=== PATIENT | male | born 1960 | race Caucasian/White ===

== ENCOUNTER → 2017-10-29 14:05 | Outpatient (CLI) | payer BC, SELFPAY ==
--- NOTE | 2017-10-29 14:16 | XR_ITS ---
EXAM: XR cervical spine 5V HISTORY: Generalized neck pain ITS.REASON: DISORDER OF NECK ORDERING PHYSICIAN: Grabiel Antunez MD PATIENT AGE: 57 years COMPARISON: None FINDINGS: There is straightening of the normal curvature suggesting muscle spasm. C1-C7 appear intact. There is mild disc space narrowing at the C6-7 level mild anterior ossific spurring noted. There are 2 focal ossifications in the soft tissues just posterior to the spinous processes of C5 and C6 likely within the nuchal ligament. This could be secondary to repeated minor neck trauma. There is minor neural foraminal narrowing bilaterally at the C4-5 level likely secondary to spurring of the uncinate joints. The prevertebral soft tissues are normal and the odontoid is normal. IMPRESSION: Findings suggesting some degree of muscle spasm along with mild bilateral neural foraminal narrowing at the C 4-5 level which could be a cause for some radiculopathy bilaterally.
== END ==
PROVIDERS: PCP Family Medicine; Visit Provider Family Medicine
DX: M53.82 Other specified dorsopathies, cervical region (principal)
CPT/HCPCS: 72050

== ENCOUNTER 2024-05-21 11:50 | Outpatient (CLI) | payer MEDICARE, SELFPAY ==
[2024-05-21 20:03] LABS: Alanine Aminotransferase 108 U/L (12-78); Albumin Level 5.3 g/dl (3.5-5.0); Albumin/Globulin Ratio 1.7 (1.1-1.8); Alkaline Phosphatase 166 U/L (38-126); Aspartate Amino Transferase 61 U/L (17-59); Bilirubin,Total 0.6 mg/dl (0.2-1.3); Blood Urea Nitrogen 26 mg/dl (9-20); Calcium 10.2 mg/dl (8.4-10.2); Carbon Dioxide 29 mmol/L (22.0-30.0); Chloride 98 mmol/L (98-107); Estimated Glomerular Filt Rate 67 ml/min (>60); GFR (African American) 81 ML/MIN (>60); Globulin 3.1 g/dL (1.3-3.2); Glucose 263 mg/dl (74-100); Sodium 142 mmol/L (136-145); Total Protein,Serum 8.4 g/dl (6.3-8.2)
[2024-05-21 20:31] LABS: Prostate Specific Ag Screen 2.1 ng/ml (0.0-4.0)
== END 2024-05-21 23:59 | disposition home or self-care (01) ==
LOC: LAB.DROPOF 05-22 10:35
PROVIDERS: PCP Family Medicine; Visit Provider Family Medicine
DX: Z12.5 Encounter for screening for malignant neoplasm of prostate (principal); I10 Essential (primary) hypertension
CPT/HCPCS: 80053; G0103

== ENCOUNTER 2024-06-23 13:28 | Outpatient (CLI) | payer MEDICARE, SELFPAY ==
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
[2024-06-23 21:23] LABS: Chol/HDL Ratio 3.5 (1-3.5); Cholesterol 196 mg/dl (140-200); HDL Cholesterol 56 mg/dl (40-60); Triglycerides 395 mg/dl (30-150); VLDL Cholesterol 79 mg/dL (0-40)
[2024-06-23 21:34] LABS: Direct LDL Cholesterol 94.61 mg/dL (100-129)
== END 2024-06-23 23:59 | disposition home or self-care (01) ==
LOC: RT 13:31
PROVIDERS: PCP Family Medicine; Visit Provider Family Medicine
DX: M79.89 Other specified soft tissue disorders (principal); I10 Essential (primary) hypertension
CPT/HCPCS: 80061; 93971

== ENCOUNTER 2024-07-06 11:40 | Outpatient (CLI) | payer MEDICARE, SELFPAY ==
[2024-07-06 19:04] LABS: Basophils % 0.2 % (0.1-2.0); Eosinophils % 0.1 % (0.1-12.0); Hematocrit 50.1 % (42.0-52.0); Lymphocytes # 1.4 K/mm3 (0.7-4.5); Lymphocytes % 9.9 % (10-50); Mean Corpuscular HGB Conc 33.9 g/dL (31.8-35.4); Mean Corpuscular Hemoglobin 31.9 pg (27.0-31.2); Mean Platelet Volume 10.4 fl (7.4-10.4); Monocytes # 0.6 K/mm3 (0.1-1.0); Monocytes % 4.2 % (1.7-9.3); Neutrophils # 12.2 K/mm3 (1.8-7.8); Neutrophils % 85.6 % (37.0-80.0); Platelet Count 160 K/mm3 (142-424); Red Blood Count 5.33 M/mm3 (4.60-6.20); Red Cell Distribution Width 13.2 % (11.5-17.5); White Blood Count 14.2 K/mm3 (4.8-10.8)
[2024-07-06 20:51] LABS: Chloride 88 mmol/L (98-107); Sodium 140 mmol/L (136-145)
[2024-07-06 20:54] LABS: Blood Urea Nitrogen 21 mg/dl (9-20); Estimated Glomerular Filt Rate 61 ml/min (>60); GFR (African American) 74 ML/MIN (>60); Glucose 170 mg/dl (74-100)
[2024-07-06 21:14] LABS: Anion Gap 15.3 mEq/L (5-15); Potassium 2.3 mmoL/L (3.5-5.1)
[2024-07-06 21:15] LABS: Carbon Dioxide 39 mmol/L (22.0-30.0)
== END 2024-07-06 23:59 | disposition home or self-care (01) ==
LOC: LAB.DROPOF 07-07 13:30
PROVIDERS: PCP Family Medicine; Visit Provider Family Medicine
DX: I10 Essential (primary) hypertension (principal); R19.7 Diarrhea, unspecified
CPT/HCPCS: 80048; 85025

== ENCOUNTER 2024-07-07 09:36 | Outpatient (CLI) | payer MEDICARE, SELFPAY ==
[2024-07-07 09:40] LABS: Adenovirus F 40/41, stool Not Detected (NotDetected); Astrovirus Not Detected (NotDetected); Campylobacter Not Detected (NotDetected); Clostridium Difficile A/B, PCR Not Detected (NotDetected); Cryptosporidium Not Detected (NotDetected); Cyclospora Cayetanesis Not Detected (NotDetected); Entamoeba histolytica Not Detected (NotDetected); Enteroaggregative E coli Not Detected (NotDetected); Enteropathogenic E coli Not Detected (NotDetected); Enterotoxigenic E coli Not Detected (NotDetected); Giardia lamblia Not Detected (NotDetected); Norovirus Not Detected (NotDetected); Plesimonas Shigalloides, PCR Not Detected (NotDetected); Rotavirus A Not Detected (NotDetected); Salmonella, PCR Not Detected (NotDetected); Sapovirus Not Detected (NotDetected); Shiga-like toxin E coli Not Detected (NotDetected); Shigella Enterovasive E coli Not Detected (NotDetected); Vibrio Cholerae Not Detected (NotDetected); Vibrio, PCR Not Detected (NotDetected); Yersinia Entercolitica, PCR Not Detected (NotDetected)
[2024-07-08 16:20] LABS: Fats, Neutral Normal (.); Fats, Total Normal (.)
== END 2024-07-07 23:59 | disposition home or self-care (01) ==
LOC: LAB 09:37
PROVIDERS: PCP Family Medicine; Visit Provider Family Medicine
DX: R19.7 Diarrhea, unspecified (principal); D81.89 Other combined immunodeficiencies
CPT/HCPCS: 82705; 87507

== ENCOUNTER 2024-07-09 10:30 | Outpatient (CLI) | payer MEDICARE, SELFPAY ==
[2024-07-09 18:08] LABS: Alanine Aminotransferase 290 U/L (12-78); Albumin Level 3.7 g/dl (3.5-5.0); Albumin/Globulin Ratio 1.5 (1.1-1.8); Alkaline Phosphatase 248 U/L (38-126); Aspartate Amino Transferase 148 U/L (17-59); Bilirubin,Total 1.4 mg/dl (0.2-1.3); Blood Urea Nitrogen 28 mg/dl (9-20); Chloride 89 mmol/L (98-107); Estimated Glomerular Filt Rate 55 ml/min (>60); GFR (African American) 67 ML/MIN (>60); Globulin 2.4 g/dL (1.3-3.2); Glucose 171 mg/dl (74-100); Sodium 141 mmol/L (136-145); Total Protein,Serum 6.1 g/dl (6.3-8.2)
[2024-07-09 19:22] LABS: Anion Gap 16.5 mEq/L (5-15); Carbon Dioxide 38 mmol/L (22.0-30.0); Potassium 2.5 mmoL/L (3.5-5.1)
== END 2024-07-09 23:59 | disposition home or self-care (01) ==
LOC: LAB.DROPOF 07-10 12:49
PROVIDERS: PCP Family Medicine; Visit Provider Family Medicine
DX: E11.9 Type 2 diabetes mellitus without complications (principal)
CPT/HCPCS: 80053

== ENCOUNTER 2024-07-10 08:42 | Observation (INO) | payer MEDICARE, SELFPAY ==
[2024-07-10] VITALS (8 sets, daily range): BP systolic 134–151; BP diastolic 68–97; PULSE 57–91; RESP 16–22; TEMP 36.5–36.7; O2SAT 91–99; BMI 30.8; BMI 30.7
--- NOTE | 2024-07-10 09:08 | ECG_ITS ---
APPROVED REPORT Exam: Resting ECG HR:73 bpm ECG Measurements Heart Rate 73 AXES AR 124 P 42 QRSd 104 QRS 65 QT 442 T -77 QTc 468 Conclusion SINUS RHYTHM POSSIBLE RIGHT VENTRICULAR CONDUCTION DELAY [RSR (QR) IN V1/V2] ST DEVIATION AND MODERATE T-WAVE ABNORMALITY, CONSIDER INFERIOR ISCHEMIA [-0.1+ mV T-WAVE IN II/aVF] Artifact limits interpretation, there appears to be ST depression in the inferior leads. No obvious STEMI. Electronically signed by : RAFAEL LOREDO, 07/11/2024 03:30:30
[2024-07-10 09:16] LABS: VBG Base Excess 14.8 mmol/L (-2.4-2.3); VBG Oxygen Saturation 62.8 % (50-70); VBG PCO2 49.8 mmol/L (35-51); VBG PO2 29.5 mmol/L (28-40); VBG Total CO2 39.5 mmol/L (23-27)
--- NOTE | 2024-07-10 09:16 | PC.NURSE ---
DR AUGUST AT BEDSIDE
--- NOTE | 2024-07-10 09:19 | ED_ITS ---
Discharge Plan Disposition Patient Disposition: Admitted Clinical Impressions Clinical Impression: Transaminitis, Hypokalemia, Diarrhea, Pancreatitis, Unintentional weight loss, Hypophosphatemia, Acidosis, lactic, Lung mass, Metastasis to liver, Mass of kidney Discharge ED Provider: Gale Padilla General Adult HPI General Chief complaint: Nausea/Vomiting/Diarrhea Stated complaint: Dehydration weight loss Time Seen by Provider: 07/10/24 08:47 Mode of Arrival: Ambulatory Description of Symptoms (Recalled from ER Triage Doc. by RN): PT PRESENTS TO THE ED WITH C/O WEIGHT LOSS AND DEHYDRATION THAT BEGAN ABOUT A MONTH AGO AFTER BEING DIAGNOSED WITH DIABETES AND HIS PCP STARTING HIM ON NEW MEDICATIONS. PT HAS HAD DIARRHA OVER THE PAST MONTH AND STATES EVERYTHING I EAT JUST GOES RIGHT THROUGH ME. PT REPORTS THAT HE HAS LOST 35LBS IN THE LAST MONTH. History of Present Illness HPI narrative: This patient is a 64-year-old male who has a history of hypertension, diabetes, and tobacco dependence presenting to the emergency department for evaluation with concern for dehydration, weight loss, abnormal labs. According to the patient, he saw a primary care doctor and was diagnosed with high blood pressure and diabetes. He was started on medications, but he was intolerant of these medications with diarrhea and leg swelling. He was started on metformin initially as well as amlodipine, he was changed to glipizide but he also did not tolerate this. He still persistently had profuse diarrhea and is lost 35 pounds in the last 6 weeks. He states that anything he eats go straight through him. He denies any fevers, chills, chest pain, shortness of breath, cough, congestion, abdominal pain, nausea, vomiting. He is still having watery diarrhea, though it is improved after starting supplements prescribed by GI. I had an interactive discussion with his primary care provider who is concerned about severe hypokalemia, transaminitis, dehydration, PHYLLIS and is worried the patient may need to be admitted. Patient states that aside from feeling tired, weak, having dry mouth, and having the diarrhea, he otherwise is feeling okay without other acute concerns or complaints. Related Data Home Medications ?Medication ?Instructions ?Recorded ?Confirmed calcium polycarbophil 625 mg tablet 1,250 mg PO DAILY 07/10/24 07/10/24 lisinopril 10 1 tab PO DAILY 04/04/25 04/04/25 mg-hydrochlorothiazide 12.5 mg tablet potassium chloride 20 mEq 20 meq PO DAILY 07/10/24 07/10/24 tablet,extended release Previous Rx's ?Medication ?Instructions ?Recorded blood-glucose meter,continuous #1 ea 06/23/24 (Dexcom G7 Assistant Infant Toddler Teacher) blood-glucose sensor (Dexcom G7 #3 ea 06/23/24 Sensor device) blood sugar diagnostic (Accu-Chek #100 ea 06/30/24 Guide test strips) blood-glucose meter (Accu-Chek #1 ea 06/30/24 Guide Glucose Meter) lancets (Accu-Chek Softclix #100 ea 06/30/24 Lancets) Allergies Allergy/AdvReac Type Severity Reaction Status Date / Time No Known Allergies Allergy Verified 07/09/24 13:21 [facility] Disclaimer: The information contained in this section may have been updated after the patient was seen, as this information can be updated by other users. Medical History Hilar lymphadenopathy Smoking greater than 30 pack years Lung nodule Hypokalemia Diarrhea Pedal edema Cigarette smoker Hypertension Onychomycosis Diabetes mellitus (~07/06/24) Family History Other Colon cancer Lung cancer Social History Smoking Status: Current every day smoker alcohol intake: never current occupational status: employed and retired Travel in the last 8 weeks: None Other Medical History Have you received the Pneumonia Vaccine: Yes ROS Obtained: Yes All systems reviewed & no additional complaints except as documented Physical Exam General General appearance: alert and in no apparent distress Head Head exam: atraumatic and normocephalic Eye Eye exam: Present normal appearance, PERRL and EOMI ENT ENT exam: Present mucous membranes dry and normal external ear exam Neck Neck exam: Present normal inspection, full ROM and trachea midline; Absent tenderness Chest Chest inspection: Present normal inspection and symmetric chest wall rise; Absent tenderness Respiratory Respiratory exam: Present normal lung sounds bilaterally; Absent respiratory distress, wheezes, stridor or accessory muscle use Cardiovascular Cardiovascular exam: Present regular rate and normal rhythm Abdominal Exam Abdominal exam: Present soft; Absent distention, tenderness or guarding Extremities Exam Extremities exam: Present full ROM, normal capillary refill and edema (Symmetric bilateral lower extremity edema); Absent tenderness Back Exam Back exam: Present normal inspection and full ROM; Absent tenderness Neurological Exam Neurological exam: Present alert, oriented X3, CN II-XII intact and normal gait; Absent motor sensory deficit Psychiatric Psychiatric exam: Present normal affect and normal mood Skin Skin exam: Present warm and dry Medical Decision Making Medical Records Medical records reviewed: Yes I reviewed the patient's medical records. Screening: Per USPSTF and CDC recommendations, given the prevalence of disease in our region, it is our hospital?s policy to screen for HIV and viral Hepatitis for all patients aged 18 and over and those with ongoing risk factors. Kishore Inquiry Pt receiving controlled substance: No Vital Signs: 07/10/24 08:57 07/10/24 10:30 07/10/24 11:30 Temperature 98.1 F Temperature Source Oral Pulse Rate 57 L 66 Pulse Rate [Right] 91 H Respiratory Rate 19 18 22 Blood Pressure 151/97 H 145/85 H Blood Pressure [Right Arm] 134/86 Blood Pressure Mean [Right Arm] 102 Blood Pressure Source Blood Pressure Source [Right Arm] Automatic Cuff Blood Pressure Position Blood Pressure Position [Right Arm] Supine 02 Sat by Pulse Oximetry 97 93 L 94 L Oxygen Delivery Method Room Air Room Air Room Air 07/10/24 12:05 07/10/24 12:50 07/10/24 12:53 Temperature 98.1 F 98.0 F Temperature Source Oral Oral Pulse Rate 78 Pulse Rate [Right] 66 Respiratory Rate 20 16 Blood Pressure 145/85 H Blood Pressure [Right Arm] 148/71 H Blood Pressure Mean [Right Arm] 96 Blood Pressure Source Automatic Cuff Blood Pressure Source [Right Arm] Automatic Cuff Blood Pressure Position Sitting Blood Pressure Position [Right Arm] Sitting 02 Sat by Pulse Oximetry 97 Oxygen Delivery Method Room Air Room Air Room Air Lab Data Lab results reviewed: Yes I reviewed the patient's lab results. Lab Results 07/10/24 08:49: VBG pH 7.50 H, VBG pCO2 49.8, VBG pO2 29.5, VBG HCO3 38.0 H, VBG Total CO2 39.5 H, VBG O2 Saturation 62.8, VBG Base Excess 14.8 H, VBG Lactic Acid 4.8 H 07/10/24 09:05: WBC 15.6 H, RBC 5.11, Hgb 16.2, Hct 46.1, MCV 90.2, MCH 31.7 H, MCHC 35.1, RDW 12.9, Plt Count 154, MPV 9.9, Neut % (Auto) 86.7 H, Lymph % (Auto) 7.9 L, [place] % (Auto) 3.9, Eos % (Auto) 0.0 L, Baso % (Auto) 0.1, Neut # (Auto) 13.5 H, Lymph # (Auto) 1.2, [place] # (Auto) 0.6, Eos # (Auto) 0.0, Baso # (Auto) 0.0, Total Counted 100, Neutrophils % (Manual) 88 H, Lymphocytes % (Manual) 5 L, Monocytes % (Manual) 7, Platelet Estimate Normal, RBC Morphology Normal, PT 11.0, INR 0.98, APTT 20.7 L, Sodium 139, Potassium 2.6 L*, Chloride 90 L, Carbon Dioxide 44 H*, Anion Gap 7.6, BUN 25 H, Creatinine 1.10, Estimated Creat Clear 103, Estimated GFR 67, Est GFR ( Amer) 81 D, Glucose 194 H, Hemoglobin A1c 8.4 H, Calcium 9.1, Phosphorus 1.8 L, Magnesium 2.4 H, Total Bilirubin 1.5 H, AST 183 H, ALT 298 H, Alkaline Phosphatase 242 H, NT-Pro-B Natriuret Pep 474 H, Total Protein 6.3, Albumin 3.7, Globulin 2.6, Albumin/Globulin Ratio 1.4, Lipase 704 H, TSH 0.57, Thyroxine (T4) 9.3 07/10/24 11:12: Urine Color Yellow, Urine Appearance Sl cloudy, Urine pH 7.0, Ur Specific [place] 1.010, Urine Protein Trace, Urine Glucose (UA) 1+, Urine Ketones Negative, Urine Blood 2+ A, Urine Nitrate Negative, Urine Bilirubin Negative, Urine Urobilinogen 0.2, Ur Leukocyte Esterase Negative, Urine RBC Occasional, Urine WBC Occasional, Ur Squamous Epith Cells Occasional, Urine Bacteria Trace 07/10/24 09:05 07/10/24 17:20 Orders (Tests/Meds): ED MEDICATIONS Generic Name Dose Route Start Last Admin Trade Name Freq PRN Reason Stop Dose Admin Albuterol/Ipratropium 3 ml 07/10/24 14:25 Ipratropium/Albuterol 3 Ml Neb IH 08/09/24 14:24 Q6HP PRN Shortness Of Breath Calcium Polycarbophil 1,250 mg 07/11/24 09:00 Calcium Polycarbophil 625mg Tab PO 08/10/24 08:59 DAILY JOSEPH Ceftriaxone Sodium 1 gm/ 50 mls @ 100 mls/hr 07/10/24 16:30 07/10/24 17:14 Sodium Chloride IV 07/20/24 16:29 100 mls/hr Q24H JOSEPH Administration Insulin Human Lispro 0 unit 07/10/24 16:30 07/10/24 17:21 Humalog 100 Units/Ml 10ml Vial (Ssi) SUBCUT 08/09/24 16:29 Not Given ACHS JOSEPH Protocol Lisinopril 20 mg 07/11/24 09:00 Lisinopril 20mg Tablet PO 08/10/24 08:59 DAILY JOSEPH Nicotine 21 mg 07/10/24 16:28 Nicotine 21mg/24hr Patch TD 08/09/24 16:27 DAILYP PRN Nicotine Cravings Potassium Chloride 40 meq 07/10/24 21:00 Potassium Chloride 20meq Tab PO 08/09/24 20:59 BID JOSEPH Potassium Phosphate 250 mg 07/10/24 17:00 07/10/24 17:13 K-Phos Neutral 250mg Tablet PO 07/10/24 23:01 250 mg Q6 JOSEPH Administration Sodium Chloride 10 ml 07/10/24 16:36 Sodium Chloride 0.9% 10ml Flush Syringe IV 08/09/24 16:35 NEEDED PRN Maintain IV Site Discontinued Medications Generic Name Dose Route Start Last Admin Trade Name Freq PRN Reason Stop Dose Admin Lactated Ringer's 1,000 mls @ 999 mls/hr 07/10/24 09:37 07/10/24 10:13 Lactated Ringer's 1000 Ml Bag IV 07/10/24 10:37 999 mls/hr .Q1H1M ONE Administration Potassium Chloride/Water 100 mls @ 50 mls/hr 07/10/24 09:39 07/10/24 13:44 Potassium Chloride 20meq/100ml Ivpb IV 07/10/24 13:38 50 mls/hr Q2H JOSEPH Administration Lactated Ringer's 1,000 mls @ 999 mls/hr 07/10/24 10:41 07/10/24 13:44 Lactated Ringer's 1000 Ml Bag IV 07/10/24 11:41 999 mls/hr .Q1H1M ONE Administration Iopamidol 75 ml 07/10/24 09:48 07/10/24 09:48 Iopamidol-370 (76%);100ml Bottle IV 07/10/24 09:49 75 ml ONCE ONE Administration Iopamidol 120 ml 07/10/24 10:54 07/10/24 10:58 Iopamidol-370 (76%);100ml Bottle IV 07/10/24 10:55 120 ml ONCE ONE Administration Potassium Phosphate 500 mg 07/10/24 09:38 07/10/24 10:12 K-Phos Neutral 250mg Tablet PO 07/10/24 09:39 500 mg ONCE ONE Administration Sodium Chloride 10 ml 07/10/24 09:48 07/10/24 09:48 Sodium Chloride 0.9% 10ml Syr (Rad Only) IV 07/10/24 09:49 10 ml ONCE ONE Administration Sodium Chloride 10 ml 07/10/24 10:54 07/10/24 10:58 Sodium Chloride 0.9% 10ml Syr (Rad Only) IV 07/10/24 10:55 10 ml ONCE ONE Administration Sodium Chloride 50 ml 07/10/24 10:54 07/10/24 10:58 0.9 % Sodium Chloride 50 Ml Vial IV 07/10/24 10:55 50 ml ONCE ONE Administration ORDERS Category Date Time Status CT abdomen pelvis w con Stat Cat Scan 07/10/24 09:[address] angio chest PE protocol Stat Cat Scan 07/10/24 10:[address] head/brain wo/w con Stat Cat Scan 07/10/24 10:41 Completed US RUQ [US abdomen limited] Stat Exams 07/10/24 09:40 Completed AFP, Tumor Marker Routine Lab 07/10/24 09:05 Received BNP [NT Pro Brain Natriuretic Pep.] Stat Lab 07/10/24 09:05 Completed Basic Metabolic Panel Routine Lab 07/10/24 17:20 Completed CA 19-9 Routine Lab 07/10/24 09:05 Received CEA Routine Lab 07/10/24 09:05 Received Complete Blood Count Auto Diff AMLAB Lab 07/11/24 06:00 Ordered Complete Blood Count Auto Diff Stat Lab 07/10/24 09:05 Completed Comprehensive Metabolic Panel AMLAB Lab 07/11/24 06:00 Ordered Comprehensive Metabolic Panel Stat Lab 07/10/24 09:05 Completed Hemoglobin A1C Stat Lab 07/10/24 09:05 Completed Hepatitis Panel Stat Lab 07/10/24 09:05 Received Lipase Stat Lab 07/10/24 09:05 Completed MAG [Magnesium] Stat Lab 07/10/24 09:05 Completed Magnesium AMLAB Lab 07/11/24 06:00 Ordered Magnesium Routine Lab 07/10/24 17:20 Completed PHOS [Phosphorous] Stat Lab 07/10/24 09:05 Completed PT INR [Prothrombin Time INR] Stat Lab 07/10/24 09:05 Completed PTT [Activated Partial Thrombo Time] Stat Lab 07/10/24 09:05 Completed T4 (Thyroxine) Stat Lab 07/10/24 09:05 Completed TSH [Thyroid Stimulating Hormone] Stat Lab 07/10/24 09:05 Completed UA [Urinalysis and Microscopic] Stat Lab 07/10/24 11:12 Completed VBG [Venous Blood Gas] Stat RT 07/10/24 08:49 Completed ECG Data Tracing #1: I reviewed this ECG and interpreted as documented below: Normal sinus rhythm with a ventricular rate of 73 bpm. Right ventricular conduction delay. Nonspecific ST/T wave changes with motion artifact that obscures baseline. No acute STEMI. ECG initial impression date: 07/10/24 ECG initial impression time: 09:10 Medical Decision Narrative: In summary, this patient is a 64-year-old male presenting to the Emergency Department for evaluation of dehydration, abnormal labs, diarrhea, unintentional weight loss. Differential diagnoses considered include but are not limited to hypokalemia, PHYLLIS, dehydration, colitis, diverticulitis, autoimmune hepatitis, gastritis. Ruling out the most morbid conditions drove assessment. It should be noted patient's history includes tobacco dependence, hypertension, and diabetes which are not at goal therapy. This complicates all aspects of care by increasing patient's risk for morbidity. I reviewed patient's past medical records and noted previous PCP evaluations over the last several weeks as well as GI evaluation for this profuse diarrhea, unintentional weight loss, abnormal labs. And noted prior negative diarrhea panel. Prior labs showing hypokalemia and transaminitis. He has outpatient colonoscopy planned, as he has not had history of colonoscopy and does have a family history of colon cancer. On exam, the patient is lying in bed in no acute distress. He has dry mucous membranes and symmetric bilateral lower extremity edema, but otherwise exam is reassuring. Abdominal exam is benign with no localizable tenderness. Workup included evaluation to evaluate for infectious, metabolic issues including hepatitis panel, CBC, CMP, magnesium, phosphorus, VBG, lactic, BNP, TSH, T4. I also obtained EKG, RUQ US, CT abdomen pelvis with IV contrast. EKG is some nonspecific changes without acute STEMI. Likely related to significant electrolyte derangements. I independently interpreted CT prior to the radiologist read and noted concerns for liver metasteses. Please see their read for final interpretation. Given this, I elected to obtain CTA chest, CT head with to evaluate for potential primary lesion. Labs were obtained that demonstrated mild leukocytosis which is nonspecific, significant hypokalemia requiring IV electrolyte repletion, significant hypophosphatemia requiring oral repletion. He was given 2 L of IV fluids here in the ED. I independently interpreted CTA of the chest and had prior radiology read and noted concerns for lung mass, likely lung primary with metastasis to the liver. Ultimately, given the patient's profound electrolyte derangements, continued diarrhea, and unintentional weight loss, I feel that he would benefit from admission for further evaluation and management. I updated patient with regards to imaging findings that are highly concerning for metastatic disease and he was admitted in stable condition after I had an interactive discussion with the hospitalist. Critical Care Critical Care Time Critical Care Time: Yes Attestation: On 07/10/24, the high probability of a clinically significant, sudden or life threatening deterioration of the following system(s) required my full and direct attention, intervention and personal management. The time I documented below is in addition to time spent performing reported procedures but includes the following listed in this critical care notation. Total Time Total Critical Care Time: 30
--- NOTE | 2024-07-10 09:19 | CT_ITS ---
FINAL REPORT TECHNIQUE: Oral and IV contrast enhanced exam. Coronal and sagittal images were obtained and reviewed. This study was performed with techniques to keep radiation doses as low as reasonably achievable, (ALARA). Individualized dose reduction techniques using automated exposure control or adjustment of mA and/or kV according to the patient''s size were employed. CLINICAL HISTORY: diarrhea several wks, wt loss, transaminitis elevated LFTs, bili, lipase COMPARISON: none FINDINGS: Abdomen: The liver is extremely heterogeneous. There are multiple masses breast several suspected isodense with the adjacent liver. A few hypodense masses are seen. Sampled and measured hypodense lesion in the inferior liver on image 50 of series 3 measures 20 mm. An isodense mass within the anterior left liver on image 29 of series 3 measures up to 32 mm. Remaining solid organs are normal. The gallbladder is contracted. There is no evidence of biliary ductal dilatation. There is no obvious bowel wall thickening. There is no free air. No fluid collection is seen. There is no adenopathy. Pelvis: The appendix is not seen. Pelvic bowel loops are unremarkable. There is mild prostate enlargement. There is no free fluid. No pelvic mass is seen. No adenopathy. IMPRESSION: Heterogeneous appearance of the liver with multiple lesions suspicious for metastatic disease. Recommend further evaluation of the liver with MRI without and with contrast. No obvious primary tumor identified. Reviewed, Interpreted and Dictated by Sunitha Villarreal MD Transcribed by Jenny Thompson Authenticated and [facility]
[2024-07-10 09:21] LABS: Lactate Venous 4.8 mmol/L (0.4-2.0)
--- NOTE | 2024-07-10 09:22 | PC.NURSE ---
Dr. Padilla notified of Lactic 4.8.
[2024-07-10 09:25] LABS: Basophils % 0.1 % (0.1-2.0); Chloride 90 mmol/L (98-107); Hematocrit 46.1 % (42.0-52.0); Hemoglobin 16.2 g/dL (14.1-18.0); Lymphocytes # 1.2 K/mm3 (0.7-4.5); Lymphocytes % 7.9 % (10-50); Mean Corpuscular HGB Conc 35.1 g/dL (31.8-35.4); Mean Corpuscular Hemoglobin 31.7 pg (27.0-31.2); Mean Corpuscular Volume 90.2 fl (80-94); Mean Platelet Volume 9.9 fl (7.4-10.4); Monocytes # 0.6 K/mm3 (0.1-1.0); Monocytes % 3.9 % (1.7-9.3); Neutrophils # 13.5 K/mm3 (1.8-7.8); Neutrophils % 86.7 % (37.0-80.0); Platelet Count 154 K/mm3 (142-424); Red Blood Count 5.11 M/mm3 (4.60-6.20); Red Cell Distribution Width 12.9 % (11.5-17.5); White Blood Count 15.6 K/mm3 (4.8-10.8)
[2024-07-10 09:26] LABS: Albumin Level 3.7 g/dl (3.5-5.0); Sodium 139 mmol/L (136-145)
[2024-07-10 09:28] LABS: Blood Urea Nitrogen 25 mg/dl (9-20); Creatinine Clearance Estimated 103 mL/min (50-200); Estimated Glomerular Filt Rate 67 ml/min (>60); GFR (African American) 81 ML/MIN (>60)
[2024-07-10 09:29] LABS: Alanine Aminotransferase 298 U/L (12-78); Albumin/Globulin Ratio 1.4 (1.1-1.8); Alkaline Phosphatase 242 U/L (38-126); Aspartate Amino Transferase 183 U/L (17-59); Bilirubin,Total 1.5 mg/dl (0.2-1.3); Calcium 9.1 mg/dl (8.4-10.2); Globulin 2.6 g/dL (1.3-3.2); Glucose 194 mg/dl (74-100); Magnesium 2.4 mg/dl (1.6-2.3); Total Protein,Serum 6.3 g/dl (6.3-8.2)
--- NOTE | 2024-07-10 09:35 | PC.NURSE ---
CRITICAL LABS K+ 2.6 PHOSPHATE 1.8 LIPASE 704 PT NAME AND R/V. DR AUGUST NOTIFIED
[2024-07-10 09:36] LABS: Lipase 704 U/L (23-300); Phosphorous 1.8 mg/dl (2.5-4.5); Potassium 2.6 mmoL/L (3.5-5.1)
[2024-07-10 09:37] LABS: Anion Gap 7.6 mEq/L (5-15); Carbon Dioxide 44 mmol/L (22.0-30.0)
[2024-07-10 09:40] LABS: MANUAL DIFFERENTIAL MANUAL DIFFERENTIAL (MANUAL DIFF)
--- NOTE | 2024-07-10 09:40 | US_ITS ---
FINAL REPORT TECHNIQUE: Multiple transverse and longitudinal images CLINICAL HISTORY: elevated LFTs, bili, lipase FINDINGS: There is cholelithiasis. No biliary ductal dilatation is appreciated. There is no evidence of ascites. There are innumerable liver masses compatible with metastatic disease. There is probably some component of fatty liver. Liver masses measure up to 2.8 cm. Right renal lesion is identified measuring up to 2.[address] is isodense and inconspicuous compared to surrounding parenchyma. IMPRESSION: Liver masses compatible with widespread liver metastatic disease. Cholelithiasis. Indeterminate right renal mass. If further evaluation is desired, CT or MRI with and without contrast using renal mass protocol may be considered. Reviewed, Interpreted and Dictated by Sunitha Villarreal MD Transcribed by Rashida Almonte Authenticated and [facility]
[2024-07-10 09:48] LABS: Activated Partial Thrombo Time 20.7 seconds (22.8-30.6); INR 0.98 (0.9-1.1)
[2024-07-10] MEDS: IOPAMIDOL-370 (76%);100ML BOTTLE 75 ML IV (09:48)
[2024-07-10] MEDS: SODIUM CHLORIDE 0.9% 10ML SYR (RAD ONLY) 10 ML IV ×2 (09:48→10:58)
[2024-07-10 10:00] LABS: NT Pro Brain Natriuretic Pep. 474 pg/mL (0-125)
[2024-07-10 10:09] LABS: T4 (Thyroxine) 9.3 ug/dl (5.53-11.0)
[2024-07-10] MEDS: K-PHOS NEUTRAL 250MG TABLET 500 MG PO (10:12)
[2024-07-10 10:13] LABS: Hemoglobin A1C 8.4 % (4.0-6.0)
[2024-07-10] MEDS: KCl 20mEq/100ml 100 ML 50 MEQ IV ×2 (10:13→13:44)
[2024-07-10] MEDS: LACTATED RINGERS 1000ML 1,000 ML 999 ML IV ×2 (10:13→13:44)
[2024-07-10 10:22] LABS: Thyroid Stimulating Hormone 0.57 uIU/mL (0.465-4.68)
[2024-07-10 10:35] LABS: Lymphocytes % 5 % (10-50); Monocytes % 7 % (2-9); Neutrophils % 88 % (42-76); Platelet Estimate Normal; RBC Morphology Normal; Total Cells Counted 100
--- NOTE | 2024-07-10 10:41 | CT_ITS ---
FINAL REPORT TECHNIQUE: Multiple axial CT sections were performed from the foramen magnum to the vertex. Coronal reformatted images were also obtained. Precontrast and postcontrast injection images were obtained. This study was performed with technique to keep radiation doses as low as reasonably achievable, (ALARA). Individualized dose reduction techniques using automated exposure control or adjustment of mA and/or kV according to the patient size were employed. CLINICAL HISTORY: malignancy workup, wt loss, poss liver mets on CT FINDINGS: Precontrast images show enhancement from contrast-enhanced CT chest, abdomen and pelvis from earlier today. There is no obvious hemorrhage. There is no edema. There is a 14 mm hypodensity in the right basal ganglia. This is favored to reprimanded dilated prevascular space over chronic lacunar infarct. No mass or abnormal contrast-enhancement is seen. IMPRESSION: No evidence of metastatic brain disease. Reviewed, Interpreted and Dictated by Sunitha Villarreal MD Transcribed by Ivonne Pastrana Authenticated and [facility]
--- NOTE | 2024-07-10 10:41 | CT_ITS ---
FINAL REPORT TECHNIQUE: Thin section axial CT with contrast with multiplanar reconstruction. This study was performed with techniques to keep radiation doses as low as reasonably achievable, (ALARA). Individualized dose reduction techniques using automated exposure control or adjustment of mA and/or kV according to the patient''s size were employed. CLINICAL HISTORY: malignancy workup, wt loss, poss liver mets on CT FINDINGS: Pulmonary vessels enhance in normal fashion without evidence of embolism. Thoracic aorta shows no dissection or aneurysm. There is a spiculated, cavitary mass in the right upper lobe suspicious for primary lung neoplasm and presumably the source of liver metastasis, seen on CT abdomen and pelvis. This lesion measures 31 x 26 mm. Remaining lungs are clear. There is no significant pleural effusion. There is no significant pericardial effusion. There is mild left hilar adenopathy measuring 30 x 21 mm. No mediastinal adenopathy is seen. IMPRESSION: Mild cavitary 31 mm right upper lobe mass is suspicious for primary lung neoplasm. Nonspecific mild left hilar adenopathy. No pulmonary embolism. Reviewed, Interpreted and Dictated by Sunitha Villarreal MD Transcribed by Ivonne Pastrana Authenticated and . [facility]
--- NOTE | 2024-07-10 10:44 | PC.NURSE ---
at updating pt and family on plan of care
[2024-07-10] MEDS: 0.9 % SODIUM CHLORIDE 50 ML VIAL IV (10:58)
[2024-07-10] MEDS: IOPAMIDOL-370 (76%);100ML BOTTLE 120 ML IV (10:58)
[2024-07-10 11:16] LABS: Microscopic, Urine URINE MICROSCOPIC (MICROSCOPIC)
[2024-07-10 11:17] LABS: Appearance,Urine SL CLOUDY (Clear); Bilirubin,Urine Negative (Negative); Blood, Urine 2+ (Negative); Color,Urine YELLOW (Yellow); Glucose,Urine (UA) 1+ (Negative); Ketones,Urine Negative (Negative); Leukocyte Esterase,Urine Negative (Negative); Nitrate,Urine Negative (Negative); Protein,Urine TRACE (Negative); Urobilinogen,Urine 0.2 EU/dl (0.2)
[2024-07-10 11:22] LABS: Bacteria,Urine Trace /lpf; RBC,Urine Occasional #/hpf (0-3); Squamous Epithelial Cell,Urine Occasional #/hpf (0-5); WBC,Urine Occasional #/hpf (0-3)
--- NOTE | 2024-07-10 11:33 | PC.NURSE ---
WAREHOUSE CLERK NOTIFIED OF ADMISSION
--- NOTE | 2024-07-10 11:42 | P.HP_ITS ---
History of Present Illness *Admission Date: 07/10/24 *Reason for visit:: Weakness, diarrhea, lab abnormality *History of present illness: Mr. Barrera is a 64-year-old male who complains of 30 pound weight loss over the past 6 to 8 weeks. Recently established with a new primary care who diagnosed him with diabetes and hypertension. Has been having diarrhea since starting diabetes meds. Having some night sweats as well. No nausea or vomiting. No blood in stool. Recent lab work showed low potassium and continued to have diarrhea even in light of medication changes. Sent to the ER for further evaluation. Patient reports smoking for very long time. Does not drink alcohol. Denies shortness of breath or chest pain. Stools described as watery. Workup in the ER with labs showed potassium of 2.6, creatinine 1.3, white count elevated at 15.6, Metabolic alkalosis with bicarb of 44. A1c 8.4. Phos low at 1.8. Liver enzymes abnormal with bilirubin 1.5, AST 183, ALT 298, alk phos 242. CT obtained of chest abdomen pelvis. Found to have multiple lesions on his liver concerning for metastatic disease and lesion in right lung concerning for cancer. Medicine was consulted for admission and further management. My evaluation, patient denies nausea or vomiting. No chest pain or abdominal pain. Appears comfortable in bed. Sister at bedside, states she is a surrogate decision-maker. Afebrile [facility] Disclaimer: The information contained in this section may have been updated after the patient was seen, as this information can be updated by other users. Medical History Hilar lymphadenopathy Smoking greater than 30 pack years Lung nodule Hypokalemia Diarrhea Pedal edema Cigarette smoker Hypertension Onychomycosis Diabetes mellitus (~07/06/24) Family History Other Colon cancer Lung cancer Social History Smoking Status: Current every day smoker alcohol intake: never current occupational status: employed and retired Travel in the last 8 weeks: None Other Medical History Have you received the Pneumonia Vaccine: Yes Review of Systems Review of Systems Review of systems (narrative): 14 point review of systems performed, pertinent positives and negatives as per HPI Meds Home Medications and Allergies Home Medications ?Medication ?Instructions ?Recorded ?Confirmed ?Type blood-glucose meter,continuous #1 ea 06/23/24 07/10/24 Rx (Dexcom G7 Upper Extremity Surgeon) blood-glucose sensor (Dexcom G7 #3 06/23/24 07/10/24 Rx Sensor device) blood sugar diagnostic (Accu-Chek #100 ea 06/30/24 07/10/24 Rx Guide test strips) blood-glucose meter (Accu-Chek #1 06/30/24 07/10/24 Rx Guide Glucose Meter) lancets (Accu-Chek Softclix #100 ea 06/30/24 07/10/24 Rx Lancets) calcium polycarbophil 625 mg tablet 1,250 mg PO DAILY 07/10/24 07/10/24 History lisinopril 10 1 tab PO DAILY 07/10/24 07/10/24 History mg-hydrochlorothiazide 12.5 mg tablet potassium chloride 20 mEq 20 meq PO DAILY 07/10/24 07/10/24 History tablet,extended release New Prescriptions to Start Prescriptions: Allergies Allergy/AdvReac Type Severity Reaction Status Date / Time No Known Allergies Allergy Verified 07/09/24 13:21 Exam Data for Last 24 hours Vital signs and Labs for Last 24 Hours: Temp Pulse Resp BP Pulse Ox O2 Del Method 98.1 F 57 L 18 151/97 H 93 L Room Air 07/10/24 08:57 07/10/24 10:30 07/10/24 10:30 07/10/24 10:30 07/10/24 10:30 07/10/24 10:30 Laboratory Results - last 24 hr 07/10/24 08:49: VBG pH 7.50 H, VBG pCO2 49.8, VBG pO2 29.5, VBG HCO3 38.0 H, VBG Total CO2 39.5 H, VBG O2 Saturation 62.8, VBG Base Excess 14.8 H, VBG Lactic Acid 4.8 H 07/10/24 09:05: WBC 15.6 H, RBC 5.11, Hgb 16.2, Hct 46.1, MCV 90.2, MCH 31.7 H, MCHC 35.1, RDW 12.9, Plt Count 154, MPV 9.9, Neut % (Auto) 86.7 H, Lymph % (Auto) 7.9 L, [place]mer[place]da % (Auto) 3.9, Eos % (Auto) 0.0 L, Baso % (Auto) 0.1, Neut # (Auto) 13.5 H, Lymph # (Auto) 1.2, [place]mer[place]da # (Auto) 0.6, Eos # (Auto) 0.0, Baso # (Auto) 0.0, Total Counted 100, Neutrophils % (Manual) 88 H, Lymphocytes % (Manual) 5 L, Monocytes % (Manual) 7, Platelet Estimate Normal, RBC Morphology Normal, PT 11.0, INR 0.98, APTT 20.7 L, Sodium 139, Potassium 2.6 L*, Chloride 90 L, Carbon Dioxide 44 H*, Anion Gap 7.6, BUN 25 H, Creatinine 1.10, Estimated Creat Clear 103, Estimated GFR 67, Est GFR ( Amer) 81 D, Glucose 194 H, Hemoglobin A1c 8.4 H, Calcium 9.1, Phosphorus 1.8 L, Magnesium 2.4 H, Total Bilirubin 1.5 H, AST 183 H, ALT 298 H, Alkaline Phosphatase 242 H, NT-Pro-B Natriuret Pep 474 H, Total Protein 6.3, Albumin 3.7, Globulin 2.6, Albumin/Globulin Ratio 1.4, Lipase 704 H, TSH 0.57, Thyroxine (T4) 9.3 07/10/24 11:12: Urine Color Yellow, Urine Appearance Sl cloudy, Urine pH 7.0, Ur Specific [place] 1.010, Urine Protein Trace, Urine Glucose (UA) 1+, Urine Ketones Negative, Urine Blood 2+ A, Urine Nitrate Negative, Urine Bilirubin Negative, Urine Urobilinogen 0.2, Ur Leukocyte Esterase Negative, Urine RBC Occasional, Urine WBC Occasional, Ur Squamous Epith Cells Occasional, Urine Bacteria Trace I & O for Last 24 hours: Intake & Output 07/07/24 07/08/24 07/09/24 07/10/24 23:59 23:59 23:59 23:59 Weight 108.862 kg Constitutional Constitutional: no acute distress, obese, chronically ill appearing and coop erative *Routine HEENT Exam Head: Present normocephalic Eye: Present EOMI and PERRL ENT: Present mucous membranes moist *Routine Neck Exam Neck: Present supple; Absent lymphadenopathy *Routine Respiratory Exam Respiratory: Present CTA bilaterally; Absent rhonchi, wheezes or crackles *Routine Cardiovascular Exam Cardiovascular: Present RRR *Routine Abdominal Exam Abdominal: Present soft and normoactive bowel sounds; Absent tenderness or distended *Routine Rectal Exam Rectal:: deferred *Routine Genitalia Exam Genitalia:: deferred *Routine Extremities Exam Extremities: Absent cyanosis, clubbing or edema *Routine Skin Exam Skin: Present warm; Absent rash *Routine Neurological Exam Neurological: Present alert, oriented X3 and moving all extremities; Absent altered mental status Assessment and Plan *Assessment and plan (1) Hypokalemia: Status: Acute Category: Medical Code(s): E87.6 - Hypokalemia (2) Hypophosphatemia: Status: Acute Category: Medical Code(s): E83.39 - Other disorders of phosphorus metabolism (3) Unintentional weight loss: Status: Acute Category: Medical Code(s): R63.4 - Abnormal weight loss (4) Diarrhea: Status: Acute Category: Medical Code(s): R19.7 - Diarrhea, unspecified (5) Lung mass: Status: Acute Category: Medical Code(s): R91.8 - Other nonspecific abnormal finding of lung field (6) Metastasis to liver: Status: Acute Category: Medical Code(s): C78.7 - Secondary malignant neoplasm of liver and intrahepatic bile duct (7) Mass of kidney: Status: Acute Category: Medical Code(s): N28.89 - Other specified disorders of kidney and ureter (8) Smoking greater than 30 pack years: Status: Acute Category: Social Hx Code(s): F17.210 - Nicotine dependence, cigarettes, uncomplicated (9) Transaminitis: Status: Acute Category: Medical Code(s): R74.01 - Elevation of levels of liver transaminase levels (10) Cigarette smoker: Problem Comment: current, 2024, greater than 40 pack year history Status: Acute Category: Social Hx Code(s): F17.210 - Nicotine dependence, cigarettes, uncomplicated (11) Hypertension: Status: Acute Category: Medical Code(s): I10 - Essential (primary) hypertension (12) Diabetes mellitus: Status: Acute Category: Medical Code(s): E11.9 - Type 2 diabetes mellitus without complications Plan 64-year-old male with unintentional weight loss who presents with electrolyte disturbances and elevated liver enzymes. Workup in the ED discovered new d iagnosis of suspected cancer with lesion on kidney, multiple lesions on liver concerning for metastases, and lesion in lung. Admitted for electrolyte replacement and evaluation by pulmonology. Discussed case with ER provider, request admission for further care and electrolyte replacement. I agreed to admit. Replacing potassium and phosphorus. Necessitates inpatient management. Problems addressed as follows: Diarrhea Metabolic alkalosis Electrolyte disturbances -Elevated bicarb at 44. White count elevated 15. Suspect reactive in the setting of his new finding of cancer. Will administer empiric dose of ceftriaxone once. Monitor for improvement with repeat CBC, CMP, magnesium ordered for the morning -Diarrhea causing electrolyte disturbances. Potassium low at 2.6, phosphorus low at 1.8, magnesium normal at 2.4. Replacing phosphorus orally. Initiate electrolyte protocol for potassium magnesium. -Continue fiber supplement for diarrhea. -Monitor for improvement with holding diabetes oral medications -Patient scheduled for colonoscopy next Saturday. Keep appointment. Image findings concerning for cancer -Per my review of CT of chest abdomen and pelvis, patient has heterogenous appearance of his liver with several masses. Found to have a mass on his kidney. Also has a mass in middle of right lung. All of these are suspicious for cancer. Suspect kidney or colon primary with mets to the other regions versus lung primary with metastases versus multiple primaries. -Pulmonology consulted to assist with further workup. Discussed case, they will plan for outpatient PET scan prior to possible bronchoscopy. Lesions on liver appear to be most likely candidates for biopsy at this time. -Will need follow-up with oncology, referred to Dr. Arredondo for further assistance - Evaluate cancer with tumor markers. Ordered AFP, CA 19-9, CEA. Diabetes: A1c elevated 8.4. Will initiate sliding scale insulin with fingersticks ACHS for now. Monitor for insulin needs Hypertension: Resume lisinopril 20 mg daily. Hold diuretics in the setting of electrolyte disturbances Obesity complicates all aspects of his care Tobacco use disorder: Nicotine patch as needed Full code Diabetic diet Sister is surrogate decision-maker
--- NOTE | 2024-07-10 11:56 | HMH.PHAINT1 ---
Pharmacy Intervention Comments: MEDICATION RECONCILIATION COMPLETED ON PATIENT USING EXTERNAL FILL HISTORY FROM PHARMACY AND LIST FROM PCP OFFICE. -TIFFANIE DOTSON, TONYD
--- NOTE | 2024-07-10 12:50 | INFXCTL.NOTE ---
arrived by w/c from ED
--- NOTE | 2024-07-10 13:12 | P.CONS_ITS ---
History of Present Illness History of present illness: Mr. Wolfe is a 64-year-old male current smoker greater than [id number] smoking history limited to the ER with Progressively worsening diarrhea discomfort and weakness found to have pulmonary nodule and pulmonary was called for further evaluation and management. [facility] Disclaimer: The information contained in this section may have been updated after the patient was seen, as this information can be updated by other users. Medical History (Updated 07/10/24 @ 13:15 by So Carmichael MD) Hilar lymphadenopathy Smoking greater than 30 pack years Lung nodule Hypokalemia Diarrhea Pedal edema Cigarette smoker Hypertension Onychomycosis Diabetes mellitus (~07/06/24) Social History Smoking Status: Current every day smoker alcohol intake: never current occupational status: employed Travel in the last 8 weeks: None Have you lived/traveled outside [place] in past 30 days?: No Contact w/someone who lives/traveled outside US past 30 days?: No Exposure to someone with infectious disease in past 14 days?: No Do you have a fever (greater than 100.4 F or 38 C)?: No Have you tested positive for COVID-19: No Exposed to someone with COVID-19 in past 14 days?: No Do you have a sore throat?: No Do you have a cough?: No Do you have any weakness?: Yes Do you have any diarrhea?: Yes Are you experiencing any unusual bleeding?: No Do you have any muscle aches/pain?: No Do you have any abdominal pain?: No Are you experiencing loss of taste or smell?: No Review of Systems Constitutional Constitutional: Reports anorexia, Reports body ache(s), Reports fatigue, Reports lethargy and Reports weight loss Eyes Eyes: Denies eye discharge, Denies dry eyes, Denies irritation and Denies itchy eyes ENT Ears, Nose, Mouth, and Throat: Denies epistaxis, Denies facial pain, Denies lip swelling and Denies throat swelling *Cardiovascular Cardiovascular: Reports dyspnea and Reports dyspnea on exertion *Respiratory Respiratory: Denies change in phlegm color, Reports chest congestion, Reports cough, Reports dyspnea, Reports dyspnea on exertion, Denies excessive phlegm production, Denies hemoptysis, Denies pain on inspiration, Denies pain with cough and Reports wheezing *Gastrointestinal Gastrointestinal: Denies abdominal pain, Denies belching, Reports change in bowel habits and Denies cramping *Musculoskeletal Musculoskeletal: Reports back pain, Reports myalgias and Reports other (No small joint swelling or Pain) Psychiatric Psychiatric: Denies homicidal ideation and Denies suicidal ideation Endocrine Endocrine: Reports fatigue and Denies heat intolerance Hematologic/Lymphatic Hematologic/Lymphatic: Denies easy bleeding and Denies lymphadenopathy Allergic/Immunologic Allergic/Immunologic: Denies itchy eyes, Denies lip swelling, Denies throat swelling and Reports wheezing Pulmonology Exam Inpatient Vital signs and Labs for Last 24 Hours: Temp Pulse Resp BP Pulse Ox O2 Del Method 98.0 F 78 16 145/85 H 94 L Room Air 07/10/24 12:53 07/10/24 12:53 07/10/24 12:53 07/10/24 12:53 07/10/24 11:30 07/10/24 12:53 Laboratory Results - last 24 hr 07/10/24 08:49: VBG pH 7.50 H, VBG pCO2 49.8, VBG pO2 29.5, VBG HCO3 38.0 H, VBG Total CO2 39.5 H, VBG O2 Saturation 62.8, VBG Base Excess 14.8 H, VBG Lactic Acid 4.8 H 07/10/24 09:05: WBC 15.6 H, RBC 5.11, Hgb 16.2, Hct 46.1, MCV 90.2, MCH 31.7 H, MCHC 35.1, RDW 12.9, Plt Count 154, MPV 9.9, Neut % (Auto) 86.7 H, Lymph % (Auto) 7.9 L, [place] % (Auto) 3.9, Eos % (Auto) 0.0 L, Baso % (Auto) 0.1, Neut # (Auto) 13.5 H, Lymph # (Auto) 1.2, [place] # (Auto) 0.6, Eos # (Auto) 0.0, Baso # (Auto) 0.0, Total Counted 100, Neutrophils % (Manual) 88 H, Lymphocytes % (Manual) 5 L, Monocytes % (Manual) 7, Platelet Estimate Normal, RBC Morphology Normal, PT 11.0, INR 0.98, APTT 20.7 L, Sodium 139, Potassium 2.6 L*, Chloride 90 L, Carbon Dioxide 44 H*, Anion Gap 7.6, BUN 25 H, Creatinine 1.10, Estimated Creat Clear 103, Estimated GFR 67, Est GFR ( Amer) 81 D, Glucose 194 H, Hemoglobin A1c 8.4 H, Calcium 9.1, Phosphorus 1.8 L, Magnesium 2.4 H, Total Bilirubin 1.5 H, AST 183 H, ALT 298 H, Alkaline Phosphatase 242 H, NT-Pro-B Natriuret Pep 474 H, Total Protein 6.3, Albumin 3.7, Globulin 2.6, Albumin/Globulin Ratio 1.4, Lipase 704 H, TSH 0.57, Thyroxine (T4) 9.3 07/10/24 11:12: Urine Color Yellow, Urine Appearance Sl cloudy, Urine pH 7.0, Ur Specific [place] 1.010, Urine Protein Trace, Urine Glucose (UA) 1+, Urine Ketones Negative, Urine Blood 2+ A, Urine Nitrate Negative, Urine Bilirubin Negative, Urine Urobilinogen 0.2, Ur Leukocyte Esterase Negative, Urine RBC Occasional, Urine WBC Occasional, Ur Squamous Epith Cells Occasional, Urine Bacteria Trace I & O for Labs for Last 24 Hours: Intake & Output 07/07/24 07/08/24 07/09/24 07/10/24 23:59 23:59 23:59 23:59 Weight 240 lb Constitutional: Present mild distress Head: Present normocephalic and atraumatic ENT: Present normal exam, normal oropharynx and mucous membranes moist Neck: Present normal inspection and full ROM Respiratory: Present diminished air movement and able to speak in complete sentences; Absent prolonged expiratory phase, rhonchi, wheezes or crackles Cardiac: Present S1/S2, Tachycardia and radial pulses present GI: Present soft and distention; Absent tenderness or guarding Skin: Present intact; Absent cyanosis or jaundice Neuro: Present alert, awake and oriented x 3 Extremities: Present normal inspection; Absent clubbing or cyanosis Psychiatric: Present normal affect and cooperative Meds Home Medications and Allergies Home Medications ?Medication ?Instructions ?Recorded ?Confirmed ?Type blood-glucose meter,continuous #1 ea 06/23/24 07/10/24 Rx (Dexcom G7 Skimmer Scoop Operator) blood-glucose sensor (Dexcom G7 #3 ea 06/23/24 07/10/24 Rx Sensor device) blood sugar diagnostic (Accu-Chek #100 ea 06/30/24 07/10/24 Rx Guide test strips) blood-glucose meter (Accu-Chek #1 06/30/24 07/10/24 Rx Guide Glucose Meter) lancets (Accu-Chek Softclix #100 06/30/24 07/10/24 Rx Lancets) calcium polycarbophil 625 mg tablet 1,250 mg PO DAILY 07/10/24 07/10/24 History glipizide 5 mg tablet 5 mg PO DAILY 07/10/24 07/10/24 History lisinopril 10 1 tab PO DAILY 07/10/24 07/10/24 History mg-hydrochlorothiazide 12.5 mg tablet potassium chloride 20 mEq 20 meq PO DAILY 07/10/24 07/10/24 History tablet,extended release New Prescriptions to Start Prescriptions: Allergies Allergy/AdvReac Type Severity Reaction Status Date / Time No Known Allergies Allergy Verified 07/09/24 13:21 Results Laboratory Findings 07/10/24 09:05 07/10/24 09:05 PT/INR, D-dimer PT 11.0 seconds (10.1-12.5) 07/10/24 09:05 INR 0.98 (0.9-1.1) 07/10/24 09:05 Abnormal lab findings: Abnormal Labs 07/10/24 07/10/24 07/10/24 08:49 09:05 11:12 WBC 15.6 H MCH 31.7 H Neut % (Auto) 86.7 H Lymph % (Auto) 7.9 L Eos % (Auto) 0.0 L Neut # (Auto) 13.5 H Neutrophils % (Manual) 88 H Lymphocytes % (Manual) 5 L APTT 20.7 L VBG pH 7.50 H VBG HCO3 38.0 H VBG Total CO2 39.5 H VBG Base Excess 14.8 H VBG Lactic Acid 4.8 H Potassium 2.6 L* Chloride 90 L Carbon Dioxide 44 H* BUN 25 H Glucose 194 H Hemoglobin A1c 8.4 H Phosphorus 1.8 L Magnesium 2.4 H Total Bilirubin 1.5 H AST 183 H ALT 298 H Alkaline Phosphatase 242 H NT-Pro-B Natriuret Pep 474 H Lipase 704 H Urine Blood 2+ A Assessment and Plan *Assessment and plan (1) Lung nodule: Status: Acute Category: Medical Code(s): R91.1 - Solitary pulmonary nodule (2) Smoking greater than 30 pack years: Status: Acute Category: Social Hx Code(s): F17.210 - Nicotine dependence, cigarettes, uncomplicated (3) Hilar lymphadenopathy: Status: Acute Category: Medical Code(s): R59.0 - Localized enlarged lymph nodes Plan Mr. Wolfe is a 64-year-old male current smoker greater than 34-[id number]-[id number] smoking history limited to the ER with Progressively worsening diarrhea discomfort and weakness found to have pulmonary nodule and pulmonary was called for further evaluation and management. Not using any oxygen supplementation at baseline CT chest reviewed, right upper lobe spiculated nodule with central necrosis/cavitation. No significant right hilar/mediastinal lymphadenopathy noted. Mild hilar adenopathy noted on the left side. Patient also noted to have multiple liver lesions largest at 2.8 cm in size consistent with static disease. Questionable renal lesion at 2.[address] head no lesions. Plan: -No need for antibiotics or steroids from pulmonary standpoint. -Follow-up with sputum cultures and TB QuantiFERON -DuoNebs 4 times daily as needed -Patient will benefit from outpatient PET CT scan and possible CT-guided biopsy of the most amendable lesion. Will schedule this as an outpatient basis.
[2024-07-10 13:20] LABS: Reflex Lactic Add Lactic Reflex
[2024-07-10 14:19] LABS: Lactic Acid Follow Up (RFLX 1) 1.7 mmol/L (0.7-2.1)
[2024-07-10] MEDS: K-PHOS NEUTRAL 250MG TABLET 250 MG PO ×2 (17:13→22:28)
[2024-07-10] MEDS: CEFTRIAXONE SODIUM 1 GM in 0.9 % SODIUM CHLORIDE 50 ML IV (17:14)
[2024-07-10 17:41] LABS: POC Glucose,Bedside 131 (70-110)
--- NOTE | 2024-07-10 17:56 | PC.NURSE ---
aox4, ambulates in room independently. not requiring o2. denies pain.
[2024-07-10 18:01] LABS: Blood Urea Nitrogen 20 mg/dl (9-20); Calcium 8.4 mg/dl (8.4-10.2); Chloride 95 mmol/L (98-107); Creatinine Clearance Estimated 113 mL/min (50-200); Estimated Glomerular Filt Rate 85 ml/min (>60); GFR (African American) 102 ML/MIN (>60); Glucose 124 mg/dl (74-100); Magnesium 2.6 mg/dl (1.6-2.3); Sodium 140 mmol/L (136-145)
[2024-07-10 18:07] LABS: Carbon Dioxide 37 mmol/L (22.0-30.0)
[2024-07-10 18:10] LABS: Anion Gap 10.2 mEq/L (5-15)
[2024-07-10 18:12] LABS: Potassium 2.2 mmoL/L (3.5-5.1)
[2024-07-10] MEDS: POTASSIUM CHLORIDE 20MEQ TAB 40 MEQ PO ×2 (20:37→22:26)
[2024-07-10] MEDS: humaLOG 100 UNITS/ML 10ML VIAL (SSI) SUBCUT (20:39)
[2024-07-10 21:17] LABS: POC Glucose,Bedside 208 (70-110)
--- NOTE | 2024-07-10 22:16 | PC.NURSE ---
Sunitha Millard APRN, made aware of critical potassium of 2.2
[2024-07-10 22:19] LABS: Phosphorous 2.1 mg/dl (2.5-4.5)
[2024-07-10] MEDS: POTASSIUM CHLORIDE 20MEQ TAB 20 MEQ PO (22:26)
[2024-07-11] VITALS: BP 135/82; PULSE 66; RESP 16; TEMP 36.4; O2SAT 92
[2024-07-11] MEDS: POTASSIUM CHLORIDE 20MEQ TAB 40 MEQ PO ×5 (01:50→14:00)
[2024-07-11 04:00] VITALS: BP 149/79; PULSE 72; RESP 16; TEMP 36.4; O2SAT 93; BMI 32.0
--- NOTE | 2024-07-11 04:57 | PC.NURSE ---
Pt is alert and oriented x4. continuing PO potassium replacement. Pt has rested well this shift and has no complaints. Pt denies pain and needs when asked and has had no other acute changes to note at this time.
[2024-07-11] MEDS: humaLOG 100 UNITS/ML 10ML VIAL (SSI) SUBCUT (05:21)
[2024-07-11 05:26] LABS: HBsAg Screen Negative (Negative); HCV Ab Non Reactive (Non Reactive); Hep A Ab, IGM Negative (Negative); Hep B Core Ab, IgM Negative (Negative)
[2024-07-11 05:51] LABS: POC Glucose,Bedside 174 (70-110)
--- NOTE | 2024-07-11 07:36 | EXP.DC.SUM ---
General Admission date:: 07/10/24 Discharge date: 07/11/24 HPI HPI HPI: Mr. Wolfe is a 64-year-old male who complains of 30 pound weight loss over the past 6 to 8 weeks. Recently established with a new primary care who diagnosed him with diabetes and hypertension. Has been having diarrhea since starting diabetes meds. Having some night sweats as well. No nausea or vomiting. No blood in stool. Recent lab work showed low potassium and continued to have diarrhea even in light of medication changes. Sent to the ER for further evaluation. Patient reports smoking for very long time. Does not drink alcohol. Denies shortness of breath or chest pain. Stools described as watery. Workup in the ER with labs showed potassium of 2.6, creatinine 1.3, white count elevated at 15.6, Metabolic alkalosis with bicarb of 44. A1c 8.4. Phos low at 1.8. Liver enzymes abnormal with bilirubin 1.5, AST 183, ALT 298, alk phos 242. CT obtained of chest abdomen pelvis. Found to have multiple lesions on his liver concerning for metastatic disease and lesion in right lung concerning for cancer. Medicine was consulted for admission and further management. My evaluation, patient denies nausea or vomiting. No chest pain or abdominal pain. Appears comfortable in bed. Sister at bedside, states she is a surrogate decision-maker. Afebrile Hospital Course Hospital Course Hospital Course: 64-year-old male with unintentional weight loss who presents with electrolyte disturbances and elevated liver enzymes. Workup in the ED discovered new diagnosis of suspected cancer with lesion on kidney, multiple lesions on liver concerning for metastases, and lesion in lung. Admitted for electrolyte replacement and evaluation by pulmonology. Discussed case with ER provider, request admission for further care and electrolyte replacement. I agreed to admit. Replacing potassium and phosphorus. Showing some improvement. Potassium still low on day of discharge however much discussion with patient, he requests to be discharged and treated as an outpatient rather than stay in the hospital any longer. Developed agreeable plan for placement and close follow-up. Discharged with family. Problems addressed as follows: Diarrhea Metabolic alkalosis Electrolyte disturbances -Elevated bicarb at 44. White count elevated 15. Suspect reactive in the setting of his new finding of cancer. Administered empiric dose of ceftriaxone. Patient had no fever. White count improved somewhat to 12.4. Did not continue antibiotics due to patient's diarrhea and alternate explanation for white count including metastatic cancer. Having diarrhea causing electrolyte disturbances. Potassium low on admission at 2.6. Remained low on day of discharge at 2.5. Replace aggressively with 40 mEq 3 times a day with repeat labs in 2 to 3 days. Increase fiber supplement to twice daily for diarrhea. Transition to long-acting insulin for diabetes due to diarrhea secondary to oral diabetes medications. Discontinued glipizide and metformin. -Patient scheduled for colonoscopy next Saturday. Keep appointment. Hepatitis panel negative. Image findings concerning for cancer -Per my review of CT of chest abdomen and pelvis, patient has heterogenous appearance of his liver with several masses. Found to have a mass on his kidney. Also has a mass in middle of right lung. All of these are suspicious for cancer. Suspect primary from gastric, pancreatic, or colonic source. Tumor markers obtained. aFP normal. CA 19-9 and CEA both elevated. -Pulmonology consulted to assist with further workup. Discussed case, they will plan for outpatient PET scan prior to possible bronchoscopy. Lesions on liver appear to be most likely candidates for biopsy at this time. -Will need follow-up with oncology, referred to Dr. Arredondo for further assistance Diabetes: A1c elevated 8.4. Initiate glargine daily for now due to intolerance of oral diabetes meds. Continue to monitor glucose with Dexcom or fingersticks at home. Follow-up with PCP for further management. Hypertension: Resume home regimen of lisinopril-HCTZ at discharge Tobacco use disorder: Nicotine patch as needed Total time spent on discharge 32 minutes in counseling, documentation, chart review, and direct care with patient. Exam Data for Last 24 hours Vital signs and Labs for Last 24 Hours: Temp Pulse Resp BP Pulse Ox O2 Del Method 97.6 F 72 16 149/79 H 93 L Room Air 07/11/24 04:00 07/11/24 04:00 07/11/24 04:00 07/11/24 04:00 07/11/24 04:00 07/11/24 06:33 Laboratory Results - last 24 hr 07/10/24 08:49: VBG pH 7.50 H, VBG pCO2 49.8, VBG pO2 29.5, VBG HCO3 38.0 H, VBG Total CO2 39.5 H, VBG O2 Saturation 62.8, VBG Base Excess 14.8 H, VBG Lactic Acid 4.8 H 07/10/24 09:05: WBC 15.6 H, RBC 5.11, Hgb 16.2, Hct 46.1, MCV 90.2, MCH 31.7 H, MCHC 35.1, RDW 12.9, Plt Count 154, MPV 9.9, Neut % (Auto) 86.7 H, Lymph % (Auto) 7.9 L, [place] % (Auto) 3.9, Eos % (Auto) 0.0 L, Baso % (Auto) 0.1, Neut # (Auto) 13.5 H, Lymph # (Auto) 1.2, [place] # (Auto) 0.6, Eos # (Auto) 0.0, Baso # (Auto) 0.0, Total Counted 100, Neutrophils % (Manual) 88 H, Lymphocytes % (Manual) 5 L, Monocytes % (Manual) 7, Platelet Estimate Normal, RBC Morphology Normal, PT 11.0, INR 0.98, APTT 20.7 L, Sodium 139, Potassium 2.6 L*, Chloride 90 L, Carbon Dioxide 44 H*, Anion Gap 7.6, BUN 25 H, Creatinine 1.10, Estimated Creat Clear 103, Estimated GFR 67, Est GFR ( Amer) 81 D, Glucose 194 H, Hemoglobin A1c 8.4 H, Calcium 9.1, Phosphorus 1.8 L, Magnesium 2.4 H, Total Bilirubin 1.5 H, AST 183 H, ALT 298 H, Alkaline Phosphatase 242 H, NT-Pro-B Natriuret Pep 474 H, Total Protein 6.3, Albumin 3.7, Globulin 2.6, Albumin/Globulin Ratio 1.4, Lipase 704 H, TSH 0.57, Thyroxine (T4) 9.3, Hepatitis A IgM Ab Negative, Hep Bs Antigen Negative, Hep B Core IgM Ab Negative, Hepatitis C Antibody Non reactive, HCV RNA PCR Test Info Comment 07/10/24 11:12: Urine Color Yellow, Urine Appearance Sl cloudy, Urine pH 7.0, Ur Specific Ariel 1.010, Urine Protein Trace, Urine Glucose (UA) 1+, Urine Ketones Negative, Urine Blood 2+ A, Urine Nitrate Negative, Urine Bilirubin Negative, Urine Urobilinogen 0.2, Ur Leukocyte Esterase Negative, Urine RBC Occasional, Urine WBC Occasional, Ur Squamous Epith Cells Occasional, Urine Bacteria Trace 07/10/24 13:46: Lactate 1.7 07/10/24 17:19: POC Glucose 131 H 07/10/24 17:20: Sodium 140, Potassium 2.2 L*, Chloride 95 L, Carbon Dioxide 37 H, Anion Gap 10.2, BUN 20, Creatinine 0.90, Estimated Creat Clear 113, Estimated GFR 85, Est GFR ( Amer) 102 D, Glucose 124 H D, Calcium 8.4, Phosphorus 2.1 L, Magnesium 2.6 H 07/10/24 20:39: POC Glucose 208 H 07/11/24 05:20: POC Glucose 174 H I & O for Last 24 hours: Intake & Output 07/08/24 07/09/24 07/10/24 07/11/24 23:59 23:59 23:59 23:59 Intake Total 420 / 780 360 / 360 Output Total 0 / 0 0 / 0 Balance 420 / 780 360 / 360 Weight 108.55 kg 113.2 kg Constitutional Constitutional: mild distress, obese, chronically ill appearing and cooperative *Routine HEENT Exam Head: Present normocephalic Eye: Present EOMI and PERRL ENT: Present mucous membranes moist *Routine Neck Exam Neck: Present supple; Absent lymphadenopathy *Routine Respiratory Exam Respiratory: Present CTA bilaterally and wheezes (Minimal expiratory); Absent rhonchi or crackles *Routine Cardiovascular Exam Cardiovascular: Present RRR *Routine Abdominal Exam Abdominal: Present soft and normoactive bowel sounds; Absent tenderness or distended *Routine Rectal Exam Patient deferred: visual exam *Routine Exam Patient deferred: penile exam *Routine Extremities Exam Extremities: Absent cyanosis, clubbing or edema *Routine Skin Exam Skin: Present intact and warm; Absent rash *Routine Neurological Exam Neurological: Present alert, oriented X3 and moving all extremities; Absent altered mental status Results Data Completed and Pending Labs on day of discharge: Labs from last 24 hours 07/11/24 07/10/24 07/10/24 05:20 20:39 17:20 WBC RBC Hgb Hct MCV MCH MCHC RDW Plt Count MPV Neut % (Auto) Lymph % (Auto) [place] % (Auto) Eos % (Auto) Baso % (Auto) Neut # (Auto) Lymph # (Auto) [place] # (Auto) Eos # (Auto) Baso # (Auto) Total Counted Neutrophils % (Manual) Lymphocytes % (Manual) Monocytes % (Manual) Platelet Estimate RBC Morphology PT INR APTT VBG pH VBG pCO2 VBG pO2 VBG HCO3 VBG Total CO2 VBG O2 Saturation VBG Base Excess VBG Lactic Acid Sodium 140 Potassium 2.2 L* Chloride 95 L Carbon Dioxide 37 H Anion Gap 10.2 BUN 20 Creatinine 0.90 Estimated Creat Clear 113 Estimated GFR 85 Est GFR ( Amer) 102 D Glucose 124 H D POC Glucose 174 H 208 H Hemoglobin A1c Lactate Calcium 8.4 Phosphorus 2.1 L Magnesium 2.6 H Total Bilirubin AST ALT Alkaline Phosphatase NT-Pro-B Natriuret Pep Total Protein Albumin Globulin Albumin/Globulin Ratio Lipase TSH Thyroxine (T4) Urine Color Urine Appearance Urine pH Ur Specific Ariel Urine Protein Urine Glucose (UA) Urine Ketones Urine Blood Urine Nitrate Urine Bilirubin Urine Urobilinogen Ur Leukocyte Esterase Urine RBC Urine WBC Ur Squamous Epith Cells Urine Bacteria Hepatitis A IgM Ab Hep Bs Antigen Hep B Core IgM Ab Hepatitis C Antibody HCV RNA PCR Test Info 07/10/24 07/10/24 07/10/24 17:19 13:46 11:12 WBC RBC Hgb Hct MCV MCH MCHC RDW Plt Count MPV Neut % (Auto) Lymph % (Auto) [place] % (Auto) Eos % (Auto) Baso % (Auto) Neut # (Auto) Lymph # (Auto) [place] # (Auto) Eos # (Auto) Baso # (Auto) Total Counted Neutrophils % (Manual) Lymphocytes % (Manual) Monocytes % (Manual) Platelet Estimate RBC Morphology PT INR APTT VBG pH VBG pCO2 VBG pO2 VBG HCO3 VBG Total CO2 VBG O2 Saturation VBG Base Excess VBG Lactic Acid Sodium Potassium Chloride Carbon Dioxide Anion Gap BUN Creatinine Estimated Creat Clear Estimated GFR Est GFR ( Amer) Glucose POC Glucose 131 H Hemoglobin A1c Lactate 1.7 Calcium Phosphorus Magnesium Total Bilirubin AST ALT Alkaline Phosphatase NT-Pro-B Natriuret Pep Total Protein Albumin Globulin Albumin/Globulin Ratio Lipase TSH Thyroxine (T4) Urine Color Yellow Urine Appearance Sl cloudy Urine pH 7.0 Ur Specific Ari[place] 1.010 Urine Protein Trace Urine Glucose (UA) 1+ Urine Ketones Negative Urine Blood 2+ A Urine Nitrate Negative Urine Bilirubin Negative Urine Urobilinogen 0.2 Ur Leukocyte Esterase Negative Urine RBC Occasional Urine WBC Occasional Ur Squamous Epith Cells Occasional Urine Bacteria Trace Hepatitis A IgM Ab Hep Bs Antigen Hep B Core IgM Ab Hepatitis C Antibody HCV RNA PCR Test Info 07/10/24 07/10/24 09:05 08:49 WBC 15.6 H RBC 5.11 Hgb 16.2 Hct 46.1 MCV 90.2 MCH 31.7 H MCHC 35.1 RDW 12.9 Plt Count 154 MPV 9.9 Neut % (Auto) 86.7 H Lymph % (Auto) 7.9 L [place] % (Auto) 3.9 Eos % (Auto) 0.0 L Baso % (Auto) 0.1 Neut # (Auto) 13.5 H Lymph # (Auto) 1.2 [place] # (Auto) 0.6 Eos # (Auto) 0.0 Baso # (Auto) 0.0 Total Counted 100 Neutrophils % (Manual) 88 H Lymphocytes % (Manual) 5 L Monocytes % (Manual) 7 Platelet Estimate Normal RBC Morphology Normal PT 11.0 INR 0.98 APTT 20.7 L VBG pH 7.50 H VBG pCO2 49.8 VBG pO2 29.5 VBG HCO3 38.0 H VBG Total CO2 39.5 H VBG O2 Saturation 62.8 VBG Base Excess 14.8 H VBG Lactic Acid 4.8 H Sodium 139 Potassium 2.6 L* Chloride 90 L Carbon Dioxide 44 H* Anion Gap 7.6 BUN 25 H Creatinine 1.10 Estimated Creat Clear 103 Estimated GFR 67 Est GFR ( Amer) 81 D Glucose 194 H POC Glucose Hemoglobin A1c 8.4 H Lactate Calcium 9.1 Phosphorus 1.8 L Magnesium 2.4 H Total Bilirubin 1.5 H AST 183 H ALT 298 H Alkaline Phosphatase 242 H NT-Pro-B Natriuret Pep 474 H Total Protein 6.3 Albumin 3.7 Globulin 2.6 Albumin/Globulin Ratio 1.4 Lipase 704 H TSH 0.57 Thyroxine (T4) 9.3 Urine Color Urine Appearance Urine pH Ur Specific Ariel Urine Protein Urine Glucose (UA) Urine Ketones Urine Blood Urine Nitrate Urine Bilirubin Urine Urobilinogen Ur Leukocyte Esterase Urine RBC Urine WBC Ur Squamous Epith Cells Urine Bacteria Hepatitis A IgM Ab Negative Hep Bs Antigen Negative Hep B Core IgM Ab Negative Hepatitis C Antibody Non reactive HCV RNA PCR Test Info Comment DS: Diagnosis Discharge Diagnosis (1) Hypokalemia: Status: Acute Code(s): E87.6 - Hypokalemia (2) Hypophosphatemia: Status: Acute Code(s): E83.39 - Other disorders of phosphorus metabolism (3) Unintentional weight loss: Status: Acute Code(s): R63.4 - Abnormal weight loss (4) Diarrhea: Status: Acute Code(s): R19.7 - Diarrhea, unspecified (5) Lung mass: Status: Acute Code(s): R91.8 - Other nonspecific abnormal finding of lung field (6) Metastasis to liver: Status: Acute Code(s): C78.7 - Secondary malignant neoplasm of liver and intrahepatic bile duct (7) Mass of kidney: Status: Acute Code(s): N28.89 - Other specified disorders of kidney and ureter (8) Smoking greater than 30 pack years: Status: Acute Code(s): F17.210 - Nicotine dependence, cigarettes, uncomplicated (9) Transaminitis: Status: Acute Code(s): R74.01 - Elevation of levels of liver transaminase levels (10) Cigarette smoker: Status: Acute Code(s): F17.210 - Nicotine dependence, cigarettes, uncomplicated Problem details: current, 2024, greater than 40 pack year history (11) Hypertension: Status: Acute Code(s): I10 - Essential (primary) hypertension (12) Diabetes mellitus: Status: Acute Code(s): E11.9 - Type 2 diabetes mellitus without complications Meds Home Medications and Allergies Home Medications ?Medication ?Instructions ?Recorded ?Confirmed ?Type blood-glucose meter,continuous #1 06/23/24 07/10/24 Rx (Dexcom G7 Diesel Locomotive Engineer) blood-glucose sensor (Dexcom G7 #3 06/23/24 07/10/24 Rx Sensor device) blood sugar diagnostic (Accu-Chek #100 06/30/24 07/10/24 Rx Guide test strips) blood-glucose meter (Accu-Chek #1 06/30/24 07/10/24 Rx Guide Glucose Meter) lancets (Accu-Chek Softclix #100 06/30/24 07/10/24 Rx Lancets) lisinopril 10 1 tab PO DAILY 07/10/24 07/10/24 History mg-hydrochlorothiazide 12.5 mg tablet potassium chloride 20 mEq 20 meq PO DAILY 07/10/24 07/10/24 History tablet,extended release calcium polycarbophil 625 mg tablet 1,250 mg (2 x 625 mg) PO BID 30 07/11/24 Rx days #120 tabs insulin glargine 100 unit/mL (3 10 unit (0.1 mL) SQ DAILY 30 days 07/11/24 Rx mL) subcutaneous pen (Lantus #15 mL Solostar U-100 Insulin) pen needle, diabetic 31 gauge x #100 ea 07/11/24 Rx 3/16 (Pen Needle) potassium chloride 20 mEq 40 meq (2 x 20 mEq) PO TID 10 days 07/11/24 Rx tablet,extended #60 tabs release(part/cryst) (Klor-Con M) sodium di- and 1 tab PO Q6 10 days #40 tabs 07/11/24 Rx monophosphate-potassium phos monobasic 250 mg tablet (Phospha Neutral) New Prescriptions to Start Prescriptions: calcium polycarbophil Ran English insulin glargine [Lantus Solostar U-100 Insulin] Ran English pen needle, diabetic [Pen Needle] Ran English potassium chloride [Klor-Con M20] Ran English sod phos di, mono-K phos mono [Phospha 250 Neutral] Ran English Allergies Allergy/AdvReac Type Severity Reaction Status Date / Time No Known Allergies Allergy Verified 07/09/24 13:21 Discharge Plan Disposition Patient Disposition: Home, Self-Care Condition: Fair Follow up Plan Follow up with: Ralph Lutz MD [Referring] - 07/21/24 1:30 pm So Carmichael MD [Physician] - 07/13/24 1:00 pm Galileo Vaz MD [Primary Care Provider] - 07/17/24 3:00 pm Prescriptions/Medication Reconciliation: New Phospha 250 Neutral 250 mg Tablet 1 tab PO Q6 10 Days Qty: 40 0RF insulin glargine [Lantus Solostar U-100 Insulin] 100 unit/mL (3 mL) Insulin Pen 10 unit SQ DAILY 30 Days Qty: 15 0RF potassium chloride [Klor-Con M20] 20 mEq Tablet,Er Particles/Crystals 40 meq PO TID 10 Days Qty: 60 0RF (DME) pen needle, diabetic [Pen Needle] 31 gauge x 3/16 needle See Rx Instructions .Route Qty: 100 0RF Rx Instructions: As directed Continued (DME) blood-glucose meter [Accu-Chek Guide Glucose Meter] Misc See Rx Instructions .Route Qty: 1 0RF Rx Instructions: As directed, bid testing (DME) Accu-Chek Guide test strips Strip See Rx Instructions .Route Qty: 100 0RF Rx Instructions: As directed, bid testing (DME) lancets [Accu-Chek Softclix Lancets] Misc See Rx Instructions .Route Qty: 100 2RF Rx Instructions: As directed, bid testing (DME) Dexcom G7 Sensor Device See Rx Instructions .Route Qty: 3 11RF Rx Instructions: As directed (DME) Dexcom G7 Diesel Locomotive Engineer Misc See Rx Instructions .Route Qty: 1 0RF Rx Instructions: As directed potassium chloride 20 mEq tablet extended release 20 meq PO DAILY lisinopril-hydrochlorothiazide 10-12.5 mg tablet 1 tab PO DAILY Changed calcium polycarbophil 625 mg Tablet 1,250 mg PO BID 30 Days Qty: 120 0RF Other Ambulatory Orders: Basic Metabolic Panel (Routine) Timeframe: 2 Days Facility: [facility] - Location: Laboratory Ordered By: Ran English Problem Reconciliation Problems Reviewed?: Yes Patient Discharge Instructions ACTIVITY: Continue current activity DIET: continue same diet Patient Instructions: Creatinine, DI for Cancer Pain Syndromes, Hypokalemia Print Language: [place] Providers Primary Care Provider: Galileo Vaz Admit Provider: Ran English Attending Provider: Ran English
[2024-07-11 07:58] LABS: Basophils % 0.2 % (0.1-2.0); Hematocrit 42.8 % (42.0-52.0); Hemoglobin 14.6 g/dL (14.1-18.0); Lymphocytes # 0.9 K/mm3 (0.7-4.5); Lymphocytes % 6.9 % (10-50); Mean Corpuscular HGB Conc 34.1 g/dL (31.8-35.4); Mean Corpuscular Hemoglobin 31.3 pg (27.0-31.2); Mean Corpuscular Volume 91.8 fl (80-94); Mean Platelet Volume 9.5 fl (7.4-10.4); Monocytes # 0.5 K/mm3 (0.1-1.0); Monocytes % 4.2 % (1.7-9.3); Neutrophils # 10.8 K/mm3 (1.8-7.8); Neutrophils % 87.3 % (37.0-80.0); Platelet Count 133 K/mm3 (142-424); Red Blood Count 4.66 M/mm3 (4.60-6.20); Red Cell Distribution Width 13.2 % (11.5-17.5); White Blood Count 12.4 K/mm3 (4.8-10.8)
[2024-07-11 08:00] VITALS: BP 135/72; PULSE 76; RESP 18; TEMP 36.6; O2SAT 91
[2024-07-11 08:02] LABS: Albumin Level 3.1 g/dl (3.5-5.0); Chloride 101 mmol/L (98-107); Sodium 142 mmol/L (136-145)
[2024-07-11 08:05] LABS: Alanine Aminotransferase 305 U/L (12-78); Albumin/Globulin Ratio 1.5 (1.1-1.8); Alkaline Phosphatase 230 U/L (38-126); Aspartate Amino Transferase 186 U/L (17-59); Blood Urea Nitrogen 17 mg/dl (9-20); Creatinine Clearance Estimated 118 mL/min (50-200); Estimated Glomerular Filt Rate 75 ml/min (>60); GFR (African American) 91 ML/MIN (>60); Globulin 2.1 g/dL (1.3-3.2); Total Protein,Serum 5.2 g/dl (6.3-8.2)
[2024-07-11 08:06] LABS: Glucose 158 mg/dl (74-100); Magnesium 2.3 mg/dl (1.6-2.3)
[2024-07-11 08:12] LABS: Anion Gap 3.2 mEq/L (5-15); Carbon Dioxide 40 mmol/L (22.0-30.0)
[2024-07-11 08:13] LABS: AFP, Tumor Marker 3.4 ng/mL (0.0-8.4); CA 19-9 904 U/mL (0-35)
[2024-07-11 08:14] LABS: Potassium 2.2 mmoL/L (3.5-5.1)
[2024-07-11] MEDS: KCl 10mEq/100ml 100 ML 100 MEQ IV (09:16)
[2024-07-11] MEDS: CALCIUM POLYCARBOPHIL 625MG TAB 1250 MG PO (09:20)
[2024-07-11] MEDS: LISINOPRIL 20MG TABLET 20 MG PO (09:20)
[2024-07-11] MEDS: INSULIN GLARGINE 100 UNITS/ML 3ML FLEXPEN 10 UNIT SUBCUT (09:25)
[2024-07-11] MEDS: POTASSIUM CHLORIDE 10 MEQ, LIDOCAINE HCL/PF 3 ML in 0.9 % SODIUM CHLORIDE 100 ML 108 MEQ IV ×3 (10:51→13:07)
[2024-07-11 12:22] LABS: POC Glucose,Bedside 220 (70-110)
[2024-07-11 14:52] LABS: Chloride 102 mmol/L (98-107); Sodium 141 mmol/L (136-145)
[2024-07-11 14:55] LABS: Blood Urea Nitrogen 17 mg/dl (9-20); Calcium 7.9 mg/dl (8.4-10.2); Creatinine Clearance Estimated 118 mL/min (50-200); Estimated Glomerular Filt Rate 75 ml/min (>60); GFR (African American) 91 ML/MIN (>60); Glucose 278 mg/dl (74-100); Potassium 2.5 mmoL/L (3.5-5.1)
[2024-07-11 15:06] LABS: Anion Gap 5.5 mEq/L (5-15); Carbon Dioxide 36 mmol/L (22.0-30.0)
--- NOTE | 2024-07-13 11:24 | SW/DCPLANNER ---
Spoke with patient on the phone. Patient stated that he is doing better. Patient stated that he is aware of his appointments. Patient stated that he was able to get his new medicine today. Patient stated if he needs to take his medication and insulin on the day of his colonostomy. I let patient know that they will call him a day or 2 ahead and let him know. Patient stated that he has no concerns or quesitons. Dell Etienne
[2024-07-14 21:24] LABS: QuantiFERON-TB Gold Plus Negative (Negative)
== END 2024-07-11 16:03 | disposition home or self-care (01) ==
LOC: ER 09:21 → 2ND 11:52
PROVIDERS: Internal Medicine Pulmonary Disease; Nurse Practitioner Acute Care; Admitting Provider Internal Medicine Adolescent Medicine; Emergency Provider Emergency Medicine; PCP Family Medicine; Visit Provider Internal Medicine Adolescent Medicine
DX: R19.7 Diarrhea, unspecified (principal); E87.3 Alkalosis; F17.210 Nicotine dependence, cigarettes, uncomplicated; E83.39 Other disorders of phosphorus metabolism; R63.4 Abnormal weight loss; R91.8 Other nonspecific abnormal finding of lung field; E11.9 Type 2 diabetes mellitus without complications; I10 Essential (primary) hypertension; N28.89 Other specified disorders of kidney and ureter; E87.6 Hypokalemia; R74.01 Elevation of levels of liver transaminase levels; K76.9 Liver disease, unspecified; D72.829 Elevated white blood cell count, unspecified; R91.1 Solitary pulmonary nodule; R74.02 Elevation of levels of lactic acid dehydrogenase [LDH]; E66.9 Obesity, unspecified; Z79.899 Other long term (current) drug therapy; Z68.32 Body mass index [BMI] 32.0-32.9, adult; Z80.1 Family history of malignant neoplasm of trachea, bronchus and lung; Z80.0 Family history of malignant neoplasm of digestive organs
CPT/HCPCS: 36415; 70470; 71275; 74177; 76705; 80048; 80053; 80074; 81001; 82105; 82378; 82803; 82962; 83036; 83605; 83690; 83735; 83880; 84100; 84436; 84443; 85007; 85025; 85027; 85610; 85730; 86301; 86480; 86803; 93005; 99291; G0378; J0696; J3480; J7120; Q9967

== ENCOUNTER 2024-07-13 09:45 | Outpatient (CLI) | payer MEDICARE, SELFPAY ==
[2024-07-13 10:42] LABS: Blood Urea Nitrogen 16 mg/dl (9-20); Calcium 8.8 mg/dl (8.4-10.2); Carbon Dioxide 38 mmol/L (22.0-30.0); Chloride 97 mmol/L (98-107); Estimated Glomerular Filt Rate 75 ml/min (>60); GFR (African American) 91 ML/MIN (>60); Glucose 198 mg/dl (74-100); Sodium 139 mmol/L (136-145)
== END 2024-07-13 23:59 | disposition home or self-care (01) ==
LOC: LAB 09:46
PROVIDERS: PCP Family Medicine; Visit Provider Internal Medicine Adolescent Medicine
DX: E87.6 Hypokalemia (principal)
CPT/HCPCS: 36415; 80048

== ENCOUNTER 2024-07-15 08:09 | Day surgery (SDC) | payer MEDICARE, SELFPAY ==
[2024-07-15 08:56] VITALS: BMI 30.8
[2024-07-15 09:01] VITALS: BP 105/64; PULSE 63; RESP 18; TEMP 36.3; O2SAT 98
[2024-07-15 09:14] LABS: POC Glucose,Bedside 208 (70-110)
--- NOTE | 2024-07-15 09:27 | EXP.ANES.CKL ---
[facility] Disclaimer: The information contained in this section may have been updated after the patient was seen, as this information can be updated by other users. Medical History Hilar lymphadenopathy Smoking greater than 30 pack years Lung nodule Hypokalemia Diarrhea Pedal edema Cigarette smoker Hypertension Onychomycosis Diabetes mellitus (~07/06/24) Surgical History History of colon resection History of appendectomy Family History Other Colon cancer Lung cancer Social History Smoking Status: Current every day smoker alcohol intake: never substance use type: unknown current occupational status: retired Travel in the last 8 weeks: None [facility] Anesthesia Checklist Patient Identification Patient Identification: Arm Band and Verbal (Name & ) Structural Data Admitted From: Home Planned Operative Procedure/s: EGD colonscopy Consent for Planned Operative Procedure(s) Verified: Yes Verified Documents: Surgical Consent and History and Physical NPO Status Verified Time NPO: 00:00 Additional verifications Anesthesia Reactions: No Airway Assessment Mallampati Score:: Class II Neurological Assessment Level of Consciousness: Awake, Alert and Appropriate Hx Seizures: No Anesthesia Plan Anesthesia Risk discussed: Yes Anesthesia Plan: Verified ASA Class: II Anesthesia Type: MAC
--- NOTE | 2024-07-15 09:39 | EXP.HP ---
History of Present Illness *Admission Date: 07/15/24 *Reason for visit:: Diarrhea, change in bowel habits and weight loss *History of present illness: Mr. 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 The examination is deemed medically necessary for diagnostic EGD and colonoscopy. The patient has been seen, interviewed and examined prior to the procedure by both myself and the anesthesia provider. [facility] Disclaimer: The information contained in this section may have been updated after the patient was seen, as this information can be updated by other users. Medical History Hilar lymphadenopathy Smoking greater than 30 pack years Lung nodule Hypokalemia Diarrhea Pedal edema Cigarette smoker Hypertension Onychomycosis Diabetes mellitus (~07/06/24) Surgical History History of colon resection History of appendectomy Family History Other Colon cancer Lung cancer Social History (Updated 07/15/24 @ 09:29 by Araceli Shore CRNA) Smoking Status: Current every day smoker alcohol intake: never substance use type: unknown current occupational status: retired Travel in the last 8 weeks: None Have you lived/traveled outside [place] in past 30 days?: No Contact w/someone who lives/traveled outside US past 30 days?: No Exposure to someone with infectious disease in past 14 days?: No Do you have a fever (greater than 100.4 F or 38 C)?: No Have you tested positive for COVID-19: Yes Exposed to someone with COVID-19 in past 14 days?: No Do you have a sore throat?: No Do you have a cough?: No Do you have any weakness?: No Are you experiencing any nausea/vomitting?: No Do you have any diarrhea?: No Are you experiencing any unusual bleeding?: No Do you have any muscle aches/pain?: No Do you have any abdominal pain?: No Are you experiencing loss of taste or smell?: No Other Medical History Have you received the Flu Vaccine for this season: No Have you received the Pneumonia Vaccine: No Review of Systems Review of Systems Review of systems (narrative): Negative *Cardiovascular Comments: Negative *Gastrointestinal Comments: Negative *Genitourinary Comments: Negative *Musculoskeletal Comments: Negative *Neurologic Comments: Negative Meds Home Medications and Allergies Home Medications ?Medication ?Instructions ?Recorded ?Confirmed ?Type blood-glucose meter,continuous #1 ea 06/23/24 07/15/24 Rx (Dexcom G7 [employer]) blood-glucose sensor (Dexcom G7 #3 ea 06/23/24 07/15/24 Rx Sensor device) blood sugar diagnostic (Accu-Chek #100 ea 06/30/24 07/15/24 Rx Guide test strips) blood-glucose meter (Accu-Chek #1 ea 06/30/24 07/15/24 Rx Guide Glucose Meter) lancets (Accu-Chek Softclix #100 ea 06/30/24 07/15/24 Rx Lancets) lisinopril 10 1 tab PO DAILY 07/10/24 07/15/24 History mg-hydrochlorothiazide 12.5 mg tablet calcium polycarbophil 625 mg tablet 1,250 mg (2 x 625 mg) PO BID 30 07/11/24 07/15/24 Rx days #120 tabs insulin glargine 100 unit/mL (3 10 unit (0.1 mL) SQ DAILY 30 days 07/11/24 07/15/24 Rx mL) subcutaneous pen (Lantus #15 mL Solostar U-100 Insulin) pen needle, diabetic 31 gauge x #100 ea 07/11/24 07/15/24 Rx 3/16 (Pen Needle) potassium chloride 20 mEq 40 meq (2 x 20 mEq) PO TID 10 days 07/11/24 07/15/24 Rx tablet,extended #60 tabs release(part/cryst) (Klor-Con M) sodium di- and 1 tab PO Q6 10 days #40 tabs 07/11/24 07/15/24 Rx monophosphate-potassium phos monobasic 250 mg tablet (Phospha Neutral) albuterol sulfate 90 mcg/actuation 2 inh inhalation QID PRN shortness 07/13/24 07/15/24 Rx aerosol inhaler of breath or wheezing 90 days #8.5 grams nicotine (polacrilex) 2 mg buccal 2 mg buccal Q4H PRN nicotine 07/15/24 07/15/24 History lozenge (Nicorette) cravings New Prescriptions to Start Prescriptions: Allergies Allergy/AdvReac Type Severity Reaction Status Date / Time No Known Allergies Allergy Verified 07/13/24 13:10 Exam Data for Last 24 hours Vital signs and Labs for Last 24 Hours: Temp Pulse Resp BP Pulse Ox O2 Del Method 97.4 F L 63 18 105/64 L 98 Room Air 07/15/24 09:01 07/15/24 09:01 07/15/24 09:01 07/15/24 09:01 07/15/24 09:01 07/15/24 09:01 Laboratory Results - last 24 hr 07/15/24 09:07: POC Glucose 208 H I & O for Last 24 hours: Intake & Output 07/12/24 07/13/24 07/14/24 07/15/24 23:59 23:59 23:59 23:59 Weight 240 lb *Routine HEENT Exam Head: Present normocephalic Eye: Present EOMI and PERRL ENT: Present mucous membranes moist *Routine Neck Exam Neck: Present supple *Routine Respiratory Exam Respiratory: Present CTA bilaterally *Routine Cardiovascular Exam Cardiovascular: Present RRR *Routine Abdominal Exam Abdominal: Present soft and normoactive bowel sounds; Absent tenderness *Routine Rectal Exam Rectal:: deferred *Routine Genitalia Exam Genitalia:: deferred *Routine Extremities Exam Extremities: Absent cyanosis, clubbing or edema *Routine Skin Exam Skin: Present warm; Absent rash *Routine Neurological Exam Neurological: Present alert and oriented X3 Assessment and Plan *Assessment and plan (1) Diarrhea: Status: Acute Category: Medical Code(s): R19.7 - Diarrhea, unspecified (2) Unintentional weight loss: Status: Acute Category: Medical Code(s): R63.4 - Abnormal weight loss (3) Fecal urgency: Status: Acute Category: Medical Code(s): R15.2 - Fecal urgency (4) Change in bowel habits: Status: Acute Category: Medical Code(s): R19.4 - Change in bowel habit Plan A/P: 1. Diarrhea with urgency, change in bowel habits and weight loss is the preprocedural diagnosis. The patient will be anesthetized/sedated using MAC sedation. The patient has been seen and examined. Cardiac and lung assessment prior to the examination is stable. Proceed with planned diagnostic panendoscopy.
[2024-07-15 09:44] VITALS: O2SAT 99
--- NOTE | 2024-07-15 10:05 | P.PCN_ITS ---
[facility] Procedure Note Date: 07/15/24 Time: 10:11 Procedure Note:: Upper Endoscopy Procedure Report: Esophagogastroduodenoscopy with cold biopsies Endoscopost: Blake Navarro II, MD Referring Physician: Galileo Vaz MD Date of Procedure: July 15, 2024 Equipment: Olympus GIF 190 standard upper endoscope Sedation: MAC sedation Indications: Mr. Wolfe is a 64-year-old gentleman who is here for diagnostic EGD and colonoscopy. He has had abnormal weight loss and diarrhea. He was seen in the office by Luz ORTIZ. He reports marked diarrhea with watery loose stools and nocturnal diarrhea and urgency. His PCR stool panel was negative for fecal fat. He reports no abdominal pain, heartburn, reflux, bloating, gassiness, belching or dysphagia. This is his first upper endoscopy and first colonoscopy. He previously did have a negative Cologuard. He does state that his mother had colon cancer in her 70s with colostomy. His paternal uncle and paternal aunt also had colon cancer diagnosed in their 70s or 80s. The patient also has elevated transaminases and alkaline phosphatase. His ALT 305, AST 186 and alkaline phosphatase 230 were elevated. His albumin was low at 3.1. His stool PCR panel was negative. His hepatitis B and C testing was normal. He did have abdominal CT scan that showed heterogeneous appearance of liver with multiple lesions suspicious for metastatic liver disease. His abdominal ultrasound showed liver masses compatible with metastatic disease and cholelithiasis. Procedure: Prior to the procedure, a history and physical exam was performed, and patient's medications and allergies were reviewed. The risks, benefits and alternatives of the sedation and procedure were discussed with the patient. All questions were answered and informed consent was obtained. The patient was brought to the procedure room. Patient identification and proposed procedure were verified by the physician and the nurse. The patient was placed in a left lateral decubitus position and the scope was passed under direct vision. Throughout the procedure, the patient's blood pressure, pulse, and oxygen saturations were monitored continuously. The upper GI endoscopy was accomplished without difficulty. The patient tolerated the procedure well. Findings: The scope was passed directly into the upper esophagus and advanced to the third portion of the duodenum. There was a duodenal diverticulum in the third portion. The remainder of the post bulbar duodenum, ampulla and duodenal bulb were normal with normal mucosa and conniventes. The scope was withdrawn through a normal duodenal bulb and pylorus into the stomach. There was some mild linear reactive gastropathy of the antrum with bile reflux. The body and fundus of the stomach were normal. Upon retroflexion there was no hiatal hernia. Biopsies were taken from the antrum. The scope was then withdrawn into the esophagus. There was no evidence of reflux esophagitis or Billy's. There were very faint esophageal varices. The remainder of the esophageal mucosa was normal. Impression: 1. Faint esophageal varices 2. Mild gastropathy 3. Duodenal diverticulum third portion Plan: The findings on upper endoscopy are nondiagnostic of his diarrhea, weight loss or primary etiology of metastatic liver disease. I will proceed with colonoscopy. I will follow-up the biopsies.
--- NOTE | 2024-07-15 10:11 | P.PCN_ITS ---
[facility] Procedure Note Date: 07/15/24 Time: 10:26 Procedure Note:: Colonoscopy Procedure Report: Colonoscopy with cold snare polypectomy, cold biopsies and hemorrhoid band ligation Endoscopist: Blake Navarro II, MD Referring physician: Galileo Vaz MD Date of Procedure: July 15, 2024 Equipment: Olympus 190 variable stiffness pediatric colonoscope Sedation: MAC sedation Indication: Mr. Wolfe is a 64-year-old gentleman who is here for diagnostic EGD and colonoscopy. He has had abnormal weight loss and diarrhea. He was seen in the office by Luz ORTIZ. He reports marked diarrhea with watery loose stools and nocturnal diarrhea and urgency. His PCR stool panel was negative for fecal fat. He reports no abdominal pain, heartburn, reflux, bloating, gassiness, belching or dysphagia. This is his first upper endoscopy and first colonoscopy. He previously did have a negative Cologuard. He does state that his mother had colon cancer in her 70s with colostomy. His paternal uncle and paternal aunt also had colon cancer diagnosed in their 70s or 80s. The patient also has elevated transaminases and alkaline phosphatase. His ALT 305, AST 186 and alkaline phosphatase 230 were elevated. His albumin was low at 3.1. His stool PCR panel was negative. His hepatitis B and C testing was normal. He did have abdominal CT scan that showed heterogeneous appearance of liver with multiple lesions suspicious for metastatic liver disease. His abdominal ultrasound showed liver masses compatible with metastatic disease and cholelithiasis Procedure: Prior to the procedure, a history and physical exam was performed, and patient's medications and allergies were reviewed. The risks, benefits and alternatives of the sedation and procedure were discussed with the patient. All questions were answered and informed consent was obtained. The patient was brought to the procedure room. Patient identification and proposed procedure were verified by the physician and the nurse. The patient was placed in a left lateral decubitus position and the scope was passed under direct vision. Throughout the procedure, the patient's blood pressure, pulse, and oxygen saturations were monitored continuously. The colonoscopy was accomplished without difficulty. The patient tolerated the procedure well. Findings: On digital rectal examination there was normal rectal tone. There were external hemorrhoidal tags with hemorrhoid prolapse. The prostate was 2+, smooth, soft, symmetric without nodules. The colonoscope was introduced through the anal canal to the rectum and advanced to the cecum. The ileocecal valve and appendiceal orifice were identified. The scope was advanced a short distance into the ileum which appeared grossly normal. The scope was then withdrawn into the colon. There were 4 polyps (ascending x 1 (4 mm), descending x 1 (5 mm) and sigmoid x 2 (5 and 7 mm)). These were all removed via cold snare polypectomy. Random biopsies were taken from both the right and left colon to rule out microscopic colitis. The remaining cecum, ascending, transverse, descending, sigmoid and rectum were grossly normal. There were no other mucosal abnormalities identified. Upon retroflexion within the rectum there were grade 2-3 internal hemorrhoids. The hemorrhoids were banded using 3 bands on 3 columns of hemorrhoids with excellent ligation effect. The preparation was excellent throughout with [place] Preparation Score of 9. The cecal time was 14 minutes. Impression: 1. Diminutive colonic polyps x 4 2. Grade 2-3 internal hemorrhoids status post band ligation x 3 Plan: I will follow-up the biopsies. There was clearly no source for the patient's possible metastatic liver disease and I would recommend CT directed liver biopsy. I will discuss this with the patient and family. I will also obtain tumor markers (CEA, CA 19-9 and AFP). Certainly granulomatous liver disease can give a similar picture. I will obtain FREDRICK level, autoimmune serologies and hepatic fibrotic markers. I will follow-up the biopsies to rule out microscopic colitis and follow-up the polyp histology. I would encourage fiber bulk.
[2024-07-15 10:35] VITALS: BP 127/72; PULSE 67; RESP 17; O2SAT 96
[2024-07-15 10:45] VITALS: BP 136/59; PULSE 59; RESP 17; O2SAT 96
[2024-07-15 10:55] VITALS: BP 133/67; PULSE 61; RESP 17; O2SAT 97
[2024-07-15 11:05] VITALS: BP 140/73; PULSE 64; RESP 17; O2SAT 96
[2024-07-16 05:01] LABS: AFP, Tumor Marker 3.5 ng/mL (0.0-8.4); CA 19-9 1389 U/mL (0-35)
[2024-07-16 05:08] LABS: Immunoglobulin A, Qn 166 mg/dL (61-437); Immunoglobulin G, Qn 546 mg/dL (603-1613); Immunoglobulin M, Qn 45 mg/dL (20-172)
[2024-07-16 13:11] LABS: Actin (Smooth Muscle) Antibody 2 Units (0-19); Mitochondrial (M2) Antibody <20.0 Units (0.0-20.0)
[2024-07-16 15:17] LABS: IgG, Subclass 4 34 mg/dL (2-96)
[2024-07-16 16:47] LABS: Angiotensin Converting Enzyme 52 U/L (14-82)
[2024-07-18 01:14] LABS: ALT (SGPT) P5P 345 IU/L (0-55); AST (SGOT) P5P 144 IU/L (0-40); Alpha 2-Macroglobulins, Qn 157 mg/dL (110-276); Apolipoprotein A-1 152 mg/dL (101-178); Bilirubin, Total 0.9 mg/dL (0.0-1.2); Cholesterol, Total 205 mg/dL (100-199); Fibrosis Score 0.64 (0.00-0.21); GGT 1985 IU/L (0-65); Glucose 193 mg/dL (70-99); Haptoglobin 242 mg/dL (32-363); NASH Score 0.98 (0.00-0.25); Steatosis Score 0.99 (0.00-0.40); Triglycerides 517 mg/dL (0-149)
== END 2024-07-15 11:35 | disposition home or self-care (01) ==
PROVIDERS: PCP Family Medicine; Visit Provider Internal Medicine Gastroenterology
PROC: 0DJ08ZZ Inspection of Upper Intestinal Tract, Via Natural or Artificial Opening Endoscopic (ICD-10-PCS; CPT 45378; principal; 2024-07-15 10:00)
DX: I85.00 Esophageal varices without bleeding (principal); K31.9 Disease of stomach and duodenum, unspecified; K57.10 Diverticulosis of small intestine without perforation or abscess without bleeding; R19.7 Diarrhea, unspecified; R63.4 Abnormal weight loss; R15.2 Fecal urgency; R19.4 Change in bowel habit; R60.1 Generalized edema; Z80.0 Family history of malignant neoplasm of digestive organs; E11.9 Type 2 diabetes mellitus without complications; Z79.4 Long term (current) use of insulin; K63.5 Polyp of colon; K64.9 Unspecified hemorrhoids
CPT/HCPCS: 43239; 45380; 45385; 45398; 36415; 82105; 82164; 82172; 82247; 82378; 82465; 82784; 82787; 82947; 82962; 82977; 83010; 83883; 84450; 84460; 84478; 86255; 86256; 86301; C1889; J2704

== ENCOUNTER 2024-07-17 14:12 | Outpatient (CLI) | payer MEDICARE, SELFPAY ==
[2024-07-17 15:13] LABS: Albumin Level 3.4 g/dl (3.5-5.0); Chloride 98 mmol/L (98-107); Sodium 140 mmol/L (136-145)
[2024-07-17 15:15] LABS: Blood Urea Nitrogen 17 mg/dl (9-20); Estimated Glomerular Filt Rate 85 ml/min (>60); GFR (African American) 102 ML/MIN (>60)
[2024-07-17 15:16] LABS: Alanine Aminotransferase 342 U/L (12-78); Albumin/Globulin Ratio 1.4 (1.1-1.8); Alkaline Phosphatase 313 U/L (38-126); Anion Gap 7.8 mEq/L (5-15); Aspartate Amino Transferase 136 U/L (17-59); Bilirubin,Total 1.7 mg/dl (0.2-1.3); Carbon Dioxide 37 mmol/L (22.0-30.0); Globulin 2.5 g/dL (1.3-3.2); Glucose 200 mg/dl (74-100); Total Protein,Serum 5.9 g/dl (6.3-8.2)
[2024-07-17 16:11] LABS: Potassium 2.8 mmoL/L (3.5-5.1)
== END 2024-07-17 23:59 | disposition home or self-care (01) ==
PROVIDERS: PCP Family Medicine; Visit Provider Family Medicine
DX: R74.8 Abnormal levels of other serum enzymes (principal); E87.6 Hypokalemia
CPT/HCPCS: 36415; 80053

== ENCOUNTER 2024-07-21 09:39 | Outpatient (CLI) | payer MEDICARE, SELFPAY ==
[2024-07-21 10:48] LABS: Calcium 7.9 mg/dl (8.4-10.2); Chloride 99 mmol/L (98-107); Chol/HDL Ratio 3.6 (1-3.5); Cholesterol 188 mg/dl (140-200); Glucose 286 mg/dl (74-100); HDL Cholesterol 52 mg/dl (40-60); Sodium 136 mmol/L (136-145); Triglycerides 396 mg/dl (30-150); VLDL Cholesterol 79 mg/dL (0-40)
[2024-07-21 10:50] LABS: Anion Gap 8.6 mEq/L (5-15); Blood Urea Nitrogen 22 mg/dl (9-20); Carbon Dioxide 31 mmol/L (22.0-30.0); Estimated Glomerular Filt Rate 85 ml/min (>60); GFR (African American) 102 ML/MIN (>60)
[2024-07-21 10:59] LABS: Direct LDL Cholesterol 80.75 mg/dL (100-129)
[2024-07-21 11:27] LABS: Potassium 2.6 mmoL/L (3.5-5.1)
== END 2024-07-21 23:59 | disposition home or self-care (01) ==
PROVIDERS: PCP Family Medicine; Visit Provider Family Medicine
DX: E87.6 Hypokalemia (principal); I10 Essential (primary) hypertension; F17.200 Nicotine dependence, unspecified, uncomplicated
CPT/HCPCS: 36415; 80048; 80061

== ENCOUNTER 2024-07-23 11:46 | Outpatient (CLI) | payer MEDICARE, SELFPAY ==
[2024-07-23 12:06] LABS: Basophils % 0.1 % (0.1-2.0); Hematocrit 43.7 % (42.0-52.0); Hemoglobin 14.8 g/dL (14.1-18.0); Lymphocytes # 0.4 K/mm3 (0.7-4.5); Lymphocytes % 2.4 % (10-50); Mean Corpuscular HGB Conc 33.9 g/dL (31.8-35.4); Mean Corpuscular Hemoglobin 31.6 pg (27.0-31.2); Mean Corpuscular Volume 93.2 fl (80-94); Mean Platelet Volume 9.6 fl (7.4-10.4); Monocytes # 0.3 K/mm3 (0.1-1.0); Neutrophils # 14.9 K/mm3 (1.8-7.8); Neutrophils % 94.7 % (37.0-80.0); Nucleated Red Blood Cells # 0 10^3/uL; Nucleated Red Blood Cells % 0 %; Platelet Count 133 K/mm3 (142-424); Red Blood Count 4.69 M/mm3 (4.60-6.20); Red Cell Distribution Width 14.4 % (11.5-17.5); Red Cell Distribution Width-SD 48.8 fL; White Blood Count 15.7 K/mm3 (4.8-10.8)
[2024-07-23 12:08] LABS: MANUAL DIFFERENTIAL MANUAL DIFFERENTIAL (MANUAL DIFF)
[2024-07-23 12:26] LABS: Lymphocytes % 4 % (10-50); Monocytes % 2 % (2-9); Neutrophils % 94 % (42-76); Total Cells Counted 100
[2024-07-23 13:04] LABS: Albumin Level 3.2 g/dl (3.5-5.0); Chloride 104 mmol/L (98-107); Potassium 3.4 mmoL/L (3.5-5.1); Sodium 140 mmol/L (136-145)
[2024-07-23 13:07] LABS: Alanine Aminotransferase 332 U/L (12-78); Albumin/Globulin Ratio 1.3 (1.1-1.8); Alkaline Phosphatase 333 U/L (38-126); Anion Gap 10.4 mEq/L (5-15); Aspartate Amino Transferase 133 U/L (17-59); Bilirubin,Total 1.9 mg/dl (0.2-1.3); Blood Urea Nitrogen 21 mg/dl (9-20); Carbon Dioxide 29 mmol/L (22.0-30.0); Estimated Glomerular Filt Rate 113 ml/min (>60); GFR (African American) 137 ML/MIN (>60); Globulin 2.4 g/dL (1.3-3.2); Total Protein,Serum 5.6 g/dl (6.3-8.2)
[2024-07-23 13:08] LABS: Calcium 8.1 mg/dl (8.4-10.2); Glucose 230 mg/dl (74-100)
== END 2024-07-23 23:59 | disposition home or self-care (01) ==
LOC: LAB 11:47
PROVIDERS: PCP Family Medicine; Visit Provider Family Medicine
DX: E87.6 Hypokalemia (principal)
CPT/HCPCS: 80053; 85007; 85025; 85027

== ENCOUNTER 2024-07-27 11:33 | Outpatient (CLI) | payer MEDICARE, SELFPAY ==
[2024-07-27 12:52] LABS: Chloride 105 mmol/L (98-107); Sodium 140 mmol/L (136-145)
[2024-07-27 12:55] LABS: Anion Gap 8.9 mEq/L (5-15); Blood Urea Nitrogen 16 mg/dl (9-20); Calcium 7.7 mg/dl (8.4-10.2); Carbon Dioxide 29 mmol/L (22.0-30.0); Estimated Glomerular Filt Rate 113 ml/min (>60); GFR (African American) 137 ML/MIN (>60); Glucose 206 mg/dl (74-100)
[2024-07-27 14:07] LABS: Potassium 2.9 mmoL/L (3.5-5.1)
== END 2024-07-27 23:59 | disposition home or self-care (01) ==
PROVIDERS: PCP Family Medicine; Visit Provider Family Medicine
DX: E87.6 Hypokalemia (principal)
CPT/HCPCS: 36415; 80048

== ENCOUNTER 2024-07-29 10:00 | Outpatient (CLI) | payer MEDICARE, SELFPAY ==
[2024-07-29 10:47] LABS: Albumin Level 2.9 g/dl (3.5-5.0); Chloride 108 mmol/L (98-107)
[2024-07-29 10:48] LABS: Sodium 140 mmol/L (136-145)
[2024-07-29 10:50] LABS: Alanine Aminotransferase 281 U/L (12-78); Albumin/Globulin Ratio 1.3 (1.1-1.8); Alkaline Phosphatase 401 U/L (38-126); Anion Gap 6.9 mEq/L (5-15); Aspartate Amino Transferase 113 U/L (17-59); Bilirubin,Total 2.1 mg/dl (0.2-1.3); Blood Urea Nitrogen 13 mg/dl (9-20); Carbon Dioxide 28 mmol/L (22.0-30.0); Estimated Glomerular Filt Rate 113 ml/min (>60); GFR (African American) 137 ML/MIN (>60); Globulin 2.3 g/dL (1.3-3.2); Total Protein,Serum 5.2 g/dl (6.3-8.2)
[2024-07-29 10:51] LABS: Calcium 7.6 mg/dl (8.4-10.2); Glucose 198 mg/dl (74-100)
[2024-07-29 12:04] LABS: Potassium 2.9 mmoL/L (3.5-5.1)
== END 2024-07-29 23:59 | disposition home or self-care (01) ==
PROVIDERS: PCP Family Medicine; Visit Provider Family Medicine
DX: E87.6 Hypokalemia (principal)
CPT/HCPCS: 36415; 80053

== ENCOUNTER 2024-08-03 10:21 | Outpatient (CLI) | payer MEDICARE, SELFPAY ==
[2024-08-03 11:35] LABS: Anion Gap 7.5 mEq/L (5-15); Blood Urea Nitrogen 15 mg/dl (9-20); Calcium 7.9 mg/dl (8.4-10.2); Carbon Dioxide 30 mmol/L (22.0-30.0); Chloride 107 mmol/L (98-107); Estimated Glomerular Filt Rate 113 ml/min (>60); GFR (African American) 137 ML/MIN (>60); Glucose 89 mg/dl (74-100); Potassium 3.5 mmoL/L (3.5-5.1); Sodium 141 mmol/L (136-145)
== END 2024-08-03 23:59 | disposition home or self-care (01) ==
PROVIDERS: PCP Family Medicine; Visit Provider Family Medicine
DX: E87.6 Hypokalemia (principal)
CPT/HCPCS: 36415; 80048

== ENCOUNTER 2024-08-04 07:24 | Inpatient (IN) | payer MEDICARE, MEDICAID, SELFPAY ==
[2024-08-04] VITALS (29 sets, daily range): BP systolic 99–139; BP diastolic 50–77; PULSE 66–91; RESP 14–29; TEMP 36.3–37.1; O2SAT 94–100; BMI 29.7; BMI 28.5
--- NOTE | 2024-08-04 07:19 | ECG_ITS ---
APPROVED REPORT Exam: Resting ECG HR:79 bpm ECG Measurements Heart Rate 79 AXES QRSd 90 QRS 76 QT 380 T 80 QTc 415 Conclusion Significant motion artifact limiting study Normal sinus rhythm Electronically signed by : MANDIE AUGUST, 08/04/2024 14:41:00
--- NOTE | 2024-08-04 07:20 | PC.NURSE ---
Dr Padilla is requesting 2 units of emergent blood. Called Lab and notified them.
--- NOTE | 2024-08-04 07:24 | CT_ITS ---
FINAL REPORT TECHNIQUE: Pre-and postcontrast images of the abdomen were performed by computed tomography. Extensive 3-D reconstruction images were performed. A CTA was performed. This study was performed with techniques to keep radiation doses as low as reasonably achievable (ALARA). Individualized dose reduction techniques using automated exposure control or adjustment of mA and/or kV according to the patient''s size were employed. CLINICAL HISTORY: acute lower GI hemorrhage COMPARISON: 07/10/2024 FINDINGS: ABDOMEN: There is patchy airspace opacity at the right lung base which may be due to acute pneumonia. Precontrast images demonstrate no evidence of nephrolithiasis. There are multiple enhancing masses throughout both hepatic lobes measuring up to 0.6 cm in diameter. The entire of the liver parenchyma is nearly completely replaced with these masses. Spleen and pancreas are unremarkable. There is moderate adrenal hyperplasia. There is a 2 cm cyst arising from the right kidney. There is a 2.4 cm filling defect within a loop of small bowel in the anterior left hemipelvis on image 126 of series 8. There is abnormal mucosal thickening throughout the ascending and descending colon. There is no definite evidence of active GI bleed. Urinary bladder is incompletely distended. Prostate is moderately enlarged. CTA: The abdominal aorta is proper caliber. The SMA, celiac axis, and DEB are patent. There is no significant stenosis or calcification. The renal arteries are patent bilaterally. There is mild plaque of the iliac vessels. IMPRESSION: Diffuse mucosal thickening throughout the colon consistent with acute infectious or inflammatory colitis. No definite active GI bleed. Multitude of masses throughout the liver consistent with metastatic disease. Bilateral adrenal hyperplasia. Right lower lobe pulmonary infiltrate consistent with acute pneumonia. Reviewed, Interpreted and Dictated by Gio Sun MD Transcribed by Jenelle Platt Authenticated and [facility]
--- NOTE | 2024-08-04 07:33 | PC.NURSE ---
i spoke with pts sister who was able to give me more details regarding pt history. States he was supposed to go for a PET scan this am due to possible metastatic lung cancer. pt has hemorrhoids but she says never anything like this amount of blood.
--- NOTE | 2024-08-04 07:36 | PC.NURSE ---
Lab at bedside with [address] Padilla signed consent. Verified pt and units #'s, and blood ID band placed on pt. Dr Padilla attempting for USGIV. She was able to place an 18g long USGIV.
--- NOTE | 2024-08-04 07:37 | ED_ITS ---
Discharge Plan Disposition Patient Disposition: Admitted Clinical Impressions Clinical Impression: Acute GI bleeding, Shock, Metastatic cancer, Anemia, Pneumonia, Colitis Discharge ED Provider: Gale Padilla General Adult HPI General Chief complaint: GI Bleed Stated complaint: GI Bleed Time Seen by Provider: 08/04/24 07:26 Mode of Arrival: EMS Source of Information: Patient, Relative and EMS Description of Symptoms (Recalled from ER Triage Doc. by RN): possible GI bleed. large amount of blood in depend and on sheets. pt is pale and a poor historian. has cancer with possible mets History of Present Illness HPI narrative: This patient is a 64-year-old male with a history of hypertension, diabetes, tobacco dependence, possible lung malignancy with questionable metastasis to the liver presenting to the emergency department for evaluation with concern for GI bleeding. According to the patient, he has had some rectal bleeding for a few days but yesterday is when he got really bad. EMS was toned out today for shortness of breath and chest pains, at which point they noted the patient was actively hemorrhaging from his rectum. They noted that he was hypotensive upon their arrival with systolics in the 70s, improving with IV fluid resuscitation with highest pressure reading just prior to arrival 108/72. He has been nontachycardic. Patient denies any nausea, vomiting, or abdominal pain. He also denies any significant history of GI bleeding in the past. He denies any use of blood thinners or aspirin. I reviewed medical records and noted that he had endoscopy 07/15/2024 which did not mention any diverticuli, but he did have esophageal varices and hemorrhoids. Patient does not contribute much further to history given acuity of condition and altered mental status upon arrival Related Data Home Medications ?Medication ?Instructions ?Recorded ?Confirmed nicotine (polacrilex) 2 mg buccal 2 mg buccal Q4H PRN nicotine 07/15/24 07/17/24 lozenge (Nicorette) cravings Previous Rx's ?Medication ?Instructions ?Recorded blood-glucose sensor (Dexcom G7 #3 ea 06/23/24 Sensor device) blood-glucose,linux systems administrator,cont #1 ea 06/23/24 (Dexcom G7 Estimator Lumber) blood sugar diagnostic (Accu-Chek #100 ea 06/30/24 Guide test strips) blood-glucose meter (Accu-Chek #1 ea 06/30/24 Guide Glucose Meter) lancets (Accu-Chek Softclix #100 ea 06/30/24 Lancets) calcium polycarbophil 625 mg tablet 1,250 mg (2 x 625 mg) PO BID 30 07/11/24 days #120 tabs insulin glargine 100 unit/mL (3 10 unit (0.1 mL) SQ DAILY 30 days 07/11/24 mL) subcutaneous pen (Lantus #15 mL Solostar U-100 Insulin) pen needle, diabetic 31 gauge x #100 ea 07/11/24 3/16 (Pen Needle) sodium di- and 1 tab PO Q6 10 days #40 tabs 07/11/24 monophosphate-potassium phos monobasic 250 mg tablet (Phospha Neutral) albuterol sulfate 90 mcg/actuation 2 inh inhalation QID PRN shortness 07/13/24 aerosol inhaler of breath or wheezing 90 days #8.5 grams colestipol 1 gram tablet (Colestid) 2 g (2 x 1 gram) PO .At bedtime 07/15/24 #60 tabs spironolactone 50 mg tablet 50 mg PO DAILY #30 tabs 07/23/24 potassium chloride 20 mEq 40 meq (2 x 20 mEq) PO TID 10 days 07/27/24 tablet,extended #60 tabs release(part/cryst) (Klor-Con M) Allergies Allergy/AdvReac Type Severity Reaction Status Date / Time No Known Allergies Allergy Verified 07/17/24 14:57 [facility] Disclaimer: The information contained in this section may have been updated after the patient was seen, as this information can be updated by other users. Medical History Mass of kidney Elevated liver enzymes Hilar lymphadenopathy Smoking greater than 30 pack years Lung nodule Hypokalemia Diarrhea Pedal edema Cigarette smoker Hypertension Onychomycosis Diabetes mellitus (~07/06/24) Surgical History History of colon resection History of appendectomy Family History Other Colon cancer Lung cancer Social History Smoking Status: Current every day smoker alcohol intake: never substance use type: unknown current occupational status: retired Travel in the last 8 weeks?: None Have you lived/traveled outside [place] in past 30 days?: No Contact w/someone who lives/traveled outside [place] past 30 days?: No Exposure to someone with infectious disease in past 14 days?: No Do you have a fever (greater than 100.4 F or 38 C)?: No Have you tested positive for COVID-19?: No Exposed to someone with COVID-19 in past 14 days?: No Do you have a sore throat?: No Do you have a cough?: No Do you have any weakness?: No Do you have any diarrhea?: No Are you experiencing any unusual bleeding?: No Do you have any muscle aches/pain?: No Do you have any abdominal pain?: No Are you experiencing loss of taste or smell?: No Other Medical History Have you received the Flu Vaccine for this season: No Have you received the Pneumonia Vaccine: No ROS Obtained: Yes unobtainable due to mental status Physical Exam General General appearance: alert and in distress Head Head exam: atraumatic and normocephalic Eye Eye exam: Present normal appearance, PERRL and EOMI ENT ENT exam: Present mucous membranes dry and normal external ear exam Neck Neck exam: Present normal inspection, full ROM and trachea midline; Absent tenderness Chest Chest inspection: Present normal inspection and symmetric chest wall rise; Absent tenderness Respiratory Respiratory exam: Present normal lung sounds bilaterally; Absent respiratory distress, wheezes, stridor or accessory muscle use Cardiovascular Cardiovascular exam: Present regular rate and normal rhythm Abdominal Exam Abdominal exam: Present soft; Absent distention, tenderness, guarding, rebound or rigidity Extremities Exam Extremities exam: Present full ROM, normal capillary refill and edema; Absent tenderness Back Exam Back exam: Present normal inspection and full ROM; Absent tenderness Neurological Exam Neurological exam: Present alert and CN II-XII intact; Absent oriented X3 or motor sensory deficit Skin Skin exam: Present warm, dry and pallor Medical Decision Making Medical Records Medical records reviewed: Yes I reviewed the patient's medical records. Screening: Per USPSTF and CDC recommendations, given the prevalence of disease in our region, it is our hospital?s policy to screen for HIV and viral Hepatitis for all patients aged 18 and over and those with ongoing risk factors. Kishore Inquiry Pt receiving controlled substance: No Vital Signs: 04/29/25 07:24 08/04/24 07:52 08/04/24 08:28 Temperature 97.4 F L Temperature Source Oral Pulse Rate 76 Pulse Rate [Right] 89 Respiratory Rate 26 H 20 29 H Blood Pressure 109/59 L 102/57 L Blood Pressure [Right Arm] 99/50 L Blood Pressure Mean [Right Arm] 66 02 Sat by Pulse Oximetry 95 99 Oxygen Delivery Method Room Air 08/04/24 08:30 08/04/24 08:40 08/04/24 08:50 Temperature Temperature Source Pulse Rate 77 75 76 Pulse Rate [Right] Respiratory Rate 25 H 28 H 24 Blood Pressure 100/60 L 107/67 L 103/62 L Blood Pressure [Right Arm] Blood Pressure Mean [Right Arm] 02 Sat by Pulse Oximetry 99 99 99 Oxygen Delivery Method 08/04/24 09:00 08/04/24 09:20 08/04/24 09:30 Temperature Temperature Source Pulse Rate 72 74 73 Pulse Rate [Right] Respiratory Rate 22 22 25 H Blood Pressure 102/62 L 108/62 L 107/64 L Blood Pressure [Right Arm] Blood Pressure Mean [Right Arm] 02 Sat by Pulse Oximetry 100 100 99 Oxygen Delivery Method 08/04/24 09:40 08/04/24 09:50 Temperature Temperature Source Pulse Rate 81 67 Pulse Rate [Right] Respiratory Rate 21 22 Blood Pressure 107/59 L 110/65 Blood Pressure [Right Arm] Blood Pressure Mean [Right Arm] 02 Sat by Pulse Oximetry 99 99 Oxygen Delivery Method Lab Data Lab results reviewed: Yes I reviewed the patient's lab results. Lab Results 08/04/24 07:36: WBC 11.4 H, RBC 3.78 L, Hgb 12.3 L, Hct 37.4 L, MCV 98.9 H, MCH 32.5 H, MCHC 32.9, RDW 15.9, Plt Count 138 L, MPV 10.0, Neut % (Auto) 90.7 H, L ymph % (Auto) 4.1 L, Harlan % (Auto) 3.8, Eos % (Auto) 0.0 L, Baso % (Auto) 0.2, N eut # (Auto) 10.3 H, Lymph # (Auto) 0.5 L, Harlan # (Auto) 0.4, Eos # (Auto) 0.0, Baso # (Auto) 0.0, Total Counted 100, Neutrophils % (Manual) 92 H, Lymphocytes % (Manual) 5 L, Monocytes % (Manual) 3, Platelet Estimate Slight decrease, RBC Morphology Normal, PT 12.4, INR 1.12 H, APTT 20.2 L, Sodium 141, Potassium 4.7 D, Chloride 108 H, Carbon Dioxide 23, Anion Gap 14.7, BUN 27 H D, Creatinine 1.50 H D, Estimated Creat Clear 73, Estimated GFR 47 L, Est GFR ( Amer) 57 L D, Glucose 137 H D, Lactate 5.5 H, Calcium 8.1 L, Total Bilirubin 3.4 H, A ST 228 H, ALT 287 H, Alkaline Phosphatase 380 H, Troponin I 0.03, C-Reactive Protein 26.4 H, Total Protein 5.1 L, Albumin 2.6 L, Globulin 2.5, A lbumin/Globulin Ratio 1.0 L, Lipase 1770 H, Procalcitonin 34.5 H, HIV Ag/Ab Combo Qual Negative, Blood Type O Positive, Antibody Screen Negative, Crossmatch (AHG) See Detail 08/04/24 07:41: VBG pH 7.36, VBG pCO2 37.9, VBG pO2 30.9, VBG HCO3 20.7 L, VBG Total CO2 21.9 L, VBG O2 Saturation 55.2, VBG Base Excess -4.8 L, VBG Lactic Acid 6.6 H 08/04/24 07:36 08/04/24 07:36 Orders (Tests/Meds): ED MEDICATIONS Generic Name Dose Route Start Last Admin Trade Name Philip PRN Reason Stop Dose Admin Pantoprazole Sodium 80 mg/ 100 mls @ 10 mls/hr 08/04/24 08:30 08/04/24 09:01 Sodium Chloride IV 08/07/24 08:29 Not Given .Q10H JOSEPH Octreotide Acetate 500 mcg/ 255 mls @ 25.5 mls/hr 08/04/24 07:30 08/04/24 07:48 Sodium Chloride IV 09/03/24 07:29 25.5 mls/hr .Q10H JOSEPH Administration 50 MCG/HR Calcium Gluconate/Sodium Chloride 2 gm in 100 mls @ 50 mls/hr 08/04/24 08:24 08/04/24 08:48 Calcium Gluconate 2,000mg/100ml Nacl Premix IV 08/04/24 10:23 50 mls/hr ONCE ONE Administration Vancomycin/PEG/NADA/Lysine/Water 1.5 gm in 300 mls @ 150 mls/hr 08/04/24 09:15 Vancomycin 1.5gm/300ml (Peg) Premix IV 08/04/24 11:14 ONCE ONE Piperacillin Sod/Tazobactam 100 mls @ 200 mls/hr 08/04/24 10:30 08/04/24 09:58 Sod 4.5 gm/ Sodium Chloride IV 08/14/24 10:29 200 mls/hr Q6H JOSEPH Administration Sodium Chloride 10 ml 08/04/24 09:46 Sodium Chloride 0.9% 10ml Flush Syringe IV 09/03/24 09:45 NEEDED PRN Maintain IV Site Discontinued Medications Generic Name Dose Route Start Last Admin Trade Name Freq PRN Reason Stop Dose Admin Pantoprazole Sodium 80 mg/ 100 mls @ 100 mls/hr 08/04/24 07:20 08/04/24 07:45 Sodium Chloride IV 08/04/24 08:19 100 mls/hr ONCE ONE Administration Lactated Ringer's 1,000 mls @ 999 mls/hr 08/04/24 07:23 08/04/24 07:47 Lactated Ringer's 1000 Ml Bag IV 08/04/24 08:23 999 mls/hr .Q1H1M ONE Administration Ceftriaxone Sodium 2 gm/ 100 mls @ 200 mls/hr 08/04/24 07:55 08/04/24 09:00 Sodium Chloride IV 08/04/24 08:24 200 mls/hr ONCE ONE Administration Iopamidol 80 ml 08/04/24 08:21 08/04/24 08:23 Iopamidol-370 (76%);100ml Bottle IV 08/04/24 08:22 80 ml ONCE ONE Administration Miscellaneous 1 each 08/04/24 09:15 Vancomycin Consult Request NOTAPPLIC 09/03/24 09:14 CONSULT PHARMACY JOSEPH Sodium Chloride 10 ml 08/04/24 08:21 08/04/24 08:23 Sodium Chloride 0.9% 10ml Syr (Rad Only) IV 08/04/24 08:22 10 ml ONCE ONE Administration Sodium Chloride 50 ml 08/04/24 08:21 08/04/24 08:22 0.9 % Sodium Chloride 50 Ml Vial IV 08/04/24 08:22 50 ml ONCE ONE Administration ORDERS Category Date Time Status Type and Screen Stat BBK 08/04/24 07:[address] angio abd/pel - GI Bleed Stat Cat Scan 08/04/24 07:24 Completed GI consult [Consult to Gastroenterology] [CONS] Routine Cons 08/04/24 09:39 Active CXR --portable [XR chest portable] Stat Exams 08/04/24 09:36 Taken Activated Partial Thrombo Time Stat Lab 08/04/24 07:36 Completed CRP [C-Reactive Protein] Stat Lab 08/04/24 07:36 Completed Complete Blood Count Auto Diff AMLAB Lab 08/05/24 06:00 Ordered Complete Blood Count Auto Diff Routine Lab 08/04/24 17:00 Ordered Complete Blood Count Auto Diff Stat Lab 08/04/24 07:36 Completed Comprehensive Metabolic Panel AMLAB Lab 08/05/24 06:00 Ordered Comprehensive Metabolic Panel Routine Lab 08/04/24 17:00 Ordered Comprehensive Metabolic Panel Stat Lab 08/04/24 07:36 Completed HIV Combo Stat Lab 08/04/24 07:36 Completed Hemoglobin and Hematocrit Timed Lab 08/04/24 09:59 Ordered Hepatitis C Ab Qual. W/ RFX Stat Lab 08/04/24 07:36 Received Lactic Acid Stat Lab 08/04/24 07:36 Completed Lipase Stat Lab 08/04/24 07:36 Completed Magnesium AMLAB Lab 08/05/24 06:00 Ordered Procalcitonin Stat Lab 08/04/24 07:36 Completed Prothrombin Time INR Stat Lab 08/04/24 07:36 Completed Trop I [Troponin I] Stat Lab 08/04/24 07:36 Completed Troponin I Q3H Lab 08/04/24 10:45 Ordered Troponin I Q3H Lab 08/04/24 13:45 Ordered Blood Culture Stat Micro 08/04/24 08:57 Received VBG [Venous Blood Gas] Stat RT 08/04/24 07:41 Completed ECG Data Tracing #1: I reviewed this ECG and interpreted as documented below: Normal sinus rhythm with a ventricular rate of 79 bpm. Significant artifact limiting evaluation ECG initial impression date: 08/04/24 ECG initial impression time: 07:20 Medical Decision Narrative: In summary, this patient is a 64-year-old male presenting to the Emergency Department for evaluation of active GI bleeding. Differential diagnoses considered include but are not limited to diverticular bleed, esophageal variceal bleed, hemorrhoidal bleed, ischemic colitis, hemorrhagic shock. Ruling out the most morbid conditions drove assessment. It should be noted patient's history includes hypertension, diabetes, tobacco dependence with malignancy that he is currently undergoing workup for which are not at goal therapy. This complicates all aspects of care by increasing patient's risk for morbidity. I reviewed patient's past medical records and noted previous ED evaluation for diffuse diarrhea, referral to GI with endoscopy 07/15/24 with polyps, varices, hemorrhoids noted. He did not have any diverticula noted. On exam, the patient is very ill-appearing, in distress with active hemorrhaging from his rectum with passage of large bright blood clots. He has had no nausea, vomiting, or hematemesis. He initially was hypotensive with EMS but fluid responsive, however pressure started to trend down again here. He is nontachycardic. He is tachypneic and altered. I am very concerned for hemorrhagic shock. Workup included CBC, CMP, VBG, lactic acid, coags, blood cultures, troponin, EKG, and CTA GI bleed protocol. I had an interactive discussion with Dr. Navarro who advises he feels we can likely manage the patient here and is following pending labs and CTA. Patient was given a bolus of IV fluids and I also administered 2 units of emergent uncrossed blood given active hemorrhage with shock, as I did not want to delay care. I also initiated IV fluid resuscitation and IV PPI, IV octreotide, IV rocephin. I independently interpreted CTA prior to the radiologist read and noted colonic wall thickening but I do not see any obvious blush of contrast. Please see their read for final interpretation. They note concerns for his metastatic disease, concern for pneumonia, concern for inflammation of the intestines infectious versus inflammatory. Labs were obtained that demonstrated hemoglobin of 12.3, which I feel is likely not yet diluted given the active acute hemorrhage with continued passage of large blood clots upon assessment. White count is elevated, CRP is elevated, procalcitonin is elevated. He has worsening transaminitis and PHYLLIS. He also has hypocalcemia, for which IV repletion was ordered. Lipase is significantly elevated, no abdominal pain or tenderness. On multiple subsequent reassessments, the patient's blood pressure significantly improved from systolic in the 70s to in the low 100s after resuscitation with blood products and fluids. Given concerns for pneumonia and significant elevation in inflammatory markers, which could indicate potential sepsis as a contributor to his shock, I broadened out antibiotic coverage from Rocephin to vancomycin and Zosyn. Octreotide drip continues. I had interactive discussions with Dr. Ramon VERGARA and Dr. English the hospitalist who feel we can keep the patient here to manage his acute illness. I updated family to plan of care and patient was ultimately admitted in improved condition. Procedures Limited Ultrasound Findings:: PROCEDURE NOTE: IV Placement under Ultrasound Guidance Performed by: Gale Padilla DO Indication: IV access required. Multiple attempts at peripheral IV placement were made by the nursing staff without success Procedure: The area was prepped in the usual fashion. The R cephalic was cannulated with a 18 gauge angiocath with use of dynamic ultrasound to identify the vein. The patient tolerated the procedure well. Complications: None Critical Care Critical Care Time Critical Care Time: Yes Attestation: On 08/04/24, the high probability of a clinically significant, sudden or life threatening deterioration of the following system(s) required my full and direct attention, intervention and personal management. The time I documented below is in addition to time spent performing reported procedures but includes the following listed in this critical care notation. Total Time Total Critical Care Time: 60
--- NOTE | 2024-08-04 07:42 | PC.NURSE ---
1st unit of emergent blood began at this time. Unit# [id number]
--- NOTE | 2024-08-04 07:42 | PC.NURSE ---
spoke with respiratory regarding VBG
[2024-08-04] MEDS: PANTOPRAZOLE SODIUM 80 MG in 0.9 % SODIUM CHLORIDE 100 ML 100 MG IV (07:45)
[2024-08-04 07:47] LABS: VBG Base Excess -4.8 mmol/L (-2.4-2.3); VBG HCO3 20.7 mmol/L (23-30); VBG Oxygen Saturation 55.2 % (50-70); VBG PCO2 37.9 mmol/L (35-51); VBG PH 7.36 mmol/L (7.31-7.41); VBG PO2 30.9 mmol/L (28-40); VBG Total CO2 21.9 mmol/L (23-27)
[2024-08-04] MEDS: LACTATED RINGERS 1000ML 1,000 ML 999 ML IV (07:47)
[2024-08-04] MEDS: OCTREOTIDE ACETATE 500 MCG in 0.9 % SODIUM CHLORIDE 250 ML 25.5 MCG IV ×2 (07:48→17:25)
[2024-08-04 07:50] LABS: Lactate Venous 6.6 mmol/L (0.4-2.0)
[2024-08-04 07:53] LABS: Basophils % 0.2 % (0.1-2.0); Hematocrit 37.4 % (42.0-52.0); Hemoglobin 12.3 g/dL (14.1-18.0); Lymphocytes # 0.5 K/mm3 (0.7-4.5); Lymphocytes % 4.1 % (10-50); Mean Corpuscular HGB Conc 32.9 g/dL (31.8-35.4); Mean Corpuscular Hemoglobin 32.5 pg (27.0-31.2); Mean Corpuscular Volume 98.9 fl (80-94); Monocytes # 0.4 K/mm3 (0.1-1.0); Monocytes % 3.8 % (1.7-9.3); Neutrophils # 10.3 K/mm3 (1.8-7.8); Neutrophils % 90.7 % (37.0-80.0); Nucleated Red Blood Cells # 0 10^3/uL; Nucleated Red Blood Cells % 0 %; Platelet Count 138 K/mm3 (142-424); Red Blood Count 3.78 M/mm3 (4.60-6.20); Red Cell Distribution Width 15.9 % (11.5-17.5); White Blood Count 11.4 K/mm3 (4.8-10.8)
[2024-08-04 07:55] LABS: MANUAL DIFFERENTIAL MANUAL DIFFERENTIAL (MANUAL DIFF)
[2024-08-04 08:02] LABS: Alanine Aminotransferase 287 U/L (12-78); Albumin Level 2.6 g/dl (3.5-5.0); Alkaline Phosphatase 380 U/L (38-126); Aspartate Amino Transferase 228 U/L (17-59); Bilirubin,Total 3.4 mg/dl (0.2-1.3); Blood Urea Nitrogen 27 mg/dl (9-20); Calcium 8.1 mg/dl (8.4-10.2); Carbon Dioxide 23 mmol/L (22.0-30.0); Creatinine Clearance Estimated 73 mL/min (50-200); Estimated Glomerular Filt Rate 47 ml/min (>60); GFR (African American) 57 ML/MIN (>60); Globulin 2.5 g/dL (1.3-3.2); Glucose 137 mg/dl (74-100); Potassium 4.7 mmoL/L (3.5-5.1); Sodium 141 mmol/L (136-145); Total Protein,Serum 5.1 g/dl (6.3-8.2)
--- NOTE | 2024-08-04 08:02 | PC.NURSE ---
Pt taken to CT. 1units of emergent blood completed at this time 0802
--- NOTE | 2024-08-04 08:10 | P.CONS_ITS ---
History of Present Illness *Admission Date: 08/04/24 *Reason for visit:: Lower GI bleeding *History of present illness: Mr. Wolfe is a 64-year-old gentleman who presented to the ED today with bright red rectal bleeding. The patient had recent diagnostic EGD and colonoscopy because of abnormal weight loss and diarrhea. He has had elevated liver chemistries and CAT scan showed multiple lesions suspicious for metastatic liver disease and he does have a large right upper lung mass that was 3.1 cm. This was strongly suspicious for primary lung cancer with metastasis to the liver. His mother had colon cancer in her 70s and his paternal uncle and aunt had colon cancer. His tumor markers showed a CEA level of 746 and a CA 19-9 level of 1389. He is yet to meet with oncology and his last follow-up with pulmonary was 07/13/2024. I was notified by ED (Gale Padilla) about patient's new GI bleeding/hematochezia. His colonoscopy with me had shown 4 diminutive polyps and grade 2-3 internal hemorrhoids which were banded. His EGD had shown some faint esophageal varices with duodenal diverticulum in the third portion. He did not have any evidence of diverticulosis. The patient is not on any anticoagulation. His initial hemoglobin and hematocrit in the ED today is 12.3 and 37.4 (mild decline) with platelet count of 138,000. [facility] Disclaimer: The information contained in this section may have been updated after the patient was seen, as this information can be updated by other users. Medical History Mass of kidney Elevated liver enzymes Hilar lymphadenopathy Smoking greater than 30 pack years Lung nodule Hypokalemia Diarrhea Pedal edema Cigarette smoker Hypertension Onychomycosis Diabetes mellitus (~07/06/24) Surgical History History of colon resection History of appendectomy Family History Other Colon cancer Lung cancer Social History Smoking Status: Current every day smoker alcohol intake: never substance use type: unknown current occupational status: retired Travel in the last 8 weeks?: None Have you lived/traveled outside [place] in past 30 days?: No Contact w/someone who lives/traveled outside US past 30 days?: No Exposure to someone with infectious disease in past 14 days?: No Do you have a fever (greater than 100.4 F or 38 C)?: No Have you tested positive for COVID-19?: No Exposed to someone with COVID-19 in past 14 days?: No Do you have a sore throat?: No Do you have a cough?: No Do you have any weakness?: No Do you have any diarrhea?: No Are you experiencing any unusual bleeding?: No Do you have any muscle aches/pain?: No Do you have any abdominal pain?: No Are you experiencing loss of taste or smell?: No Meds Home Medications and Allergies Home Medications ?Medication ?Instructions ?Recorded ?Confirmed ?Type blood-glucose sensor (Dexcom G7 #3 ea 06/23/24 07/17/24 Rx Sensor device) blood-glucose,hydrodynamics teacher,cont #1 ea 06/23/24 07/17/24 Rx (Dexcom G7 Testing Lead) blood sugar diagnostic (Accu-Chek #100 ea 06/30/24 07/17/24 Rx Guide test strips) blood-glucose meter (Accu-Chek #1 ea 06/30/24 07/17/24 Rx Guide Glucose Meter) lancets (Accu-Chek Softclix #100 ea 06/30/24 07/17/24 Rx Lancets) calcium polycarbophil 625 mg tablet 1,250 mg (2 x 625 mg) PO BID 30 07/11/24 07/17/24 Rx days #120 tabs insulin glargine 100 unit/mL (3 10 unit (0.1 mL) SQ DAILY 30 days 07/11/24 07/17/24 Rx mL) subcutaneous pen (Lantus #15 mL Solostar U-100 Insulin) pen needle, diabetic 31 gauge x #100 ea 07/11/24 07/17/24 Rx 3/16 (Pen Needle) sodium di- and 1 tab PO Q6 10 days #40 tabs 07/11/24 07/17/24 Rx monophosphate-potassium phos monobasic 250 mg tablet (Phospha Neutral) albuterol sulfate 90 mcg/actuation 2 inh inhalation QID PRN shortness 07/13/24 07/17/24 Rx aerosol inhaler of breath or wheezing 90 days #8.5 grams colestipol 1 gram tablet (Colestid) 2 g (2 x 1 gram) PO .At bedtime 07/15/24 07/17/24 Rx #60 tabs nicotine (polacrilex) 2 mg buccal 2 mg buccal Q4H PRN nicotine 07/15/24 07/17/24 History lozenge (Nicorette) cravings spironolactone 50 mg tablet 50 mg PO DAILY #30 tabs 07/23/24 Rx potassium chloride 20 mEq 40 meq (2 x 20 mEq) PO TID 10 days 07/27/24 Rx tablet,extended #60 tabs release(part/cryst) (Julio Guzmán) New Prescriptions to Start Prescriptions: Allergies Allergy/AdvReac Type Severity Reaction Status Date / Time No Known Allergies Allergy Verified 07/17/24 14:57 Exam (Inpt) Vital signs and Labs for Last 24 Hours: Temp Pulse Resp BP Pulse Ox O2 Del Method 97.4 F L 89 26 H 99/50 L 95 Room Air 08/04/24 07:24 08/04/24 07:24 08/04/24 07:24 08/04/24 07:24 08/04/24 07:24 08/04/24 07:24 Laboratory Results - last 24 hr 08/04/24 07:36: WBC 11.4 H, RBC 3.78 L, Hgb 12.3 L, Hct 37.4 L, MCV 98.9 H, MCH 32.5 H, MCHC 32.9, RDW 15.9, Plt Count 138 L, MPV 10.0, Neut % (Auto) 90.7 H, L ymph % (Auto) 4.1 L, [place] % (Auto) 3.8, Eos % (Auto) 0.0 L, Baso % (Auto) 0.2, N eut # (Auto) 10.3 H, Lymph # (Auto) 0.5 L, [place] # (Auto) 0.4, Eos # (Auto) 0.0, Baso # (Auto) 0.0, Crossmatch (AHG) See Detail 08/04/24 07:41: VBG pH 7.36, VBG pCO2 37.9, VBG pO2 30.9, VBG HCO3 20.7 L, VBG Total CO2 21.9 L, VBG O2 Saturation 55.2, VBG Base Excess -4.8 L, VBG Lactic Acid 6.6 H I & O for Labs for Last 24 Hours: Intake & Output 08/01/24 08/02/24 08/03/24 08/04/24 23:59 23:59 23:59 23:59 Weight 232 lb GI: Present soft Comments:: Normoactive bowel sounds, soft, nondistended, nontender, benign abdomen Results Labs 08/04/24 07:36 Labs: Laboratory Results - last 24 hr 08/04/24 07:36: WBC 11.4 H, RBC 3.78 L, Hgb 12.3 L, Hct 37.4 L, MCV 98.9 H, MCH 32.5 H, MCHC 32.9, RDW 15.9, Plt Count 138 L, MPV 10.0, Neut % (Auto) 90.7 H, L ymph % (Auto) 4.1 L, [place] % (Auto) 3.8, Eos % (Auto) 0.0 L, Baso % (Auto) 0.2, N eut # (Auto) 10.3 H, Lymph # (Auto) 0.5 L, [place] # (Auto) 0.4, Eos # (Auto) 0.0, Baso # (Auto) 0.0, Crossmatch (AHG) See Detail 08/04/24 07:41: VBG pH 7.36, VBG pCO2 37.9, VBG pO2 30.9, VBG HCO3 20.7 L, VBG Total CO2 21.9 L, VBG O2 Saturation 55.2, VBG Base Excess -4.8 L, VBG Lactic Acid 6.6 H Assessment and Plan *Assessment and plan (1) Rectal bleeding: Status: Acute Category: Medical Code(s): K62.5 - Hemorrhage of anus and rectum (2) Metastatic lung cancer (metastasis from lung to other site): Status: Acute Category: Medical Code(s): C34.90 - Malignant neoplasm of unspecified part of unspecified bronchus or lung (3) Metastasis to liver: Status: Acute Category: Medical Code(s): C78.7 - Secondary malignant neoplasm of liver and intrahepatic bile duct Plan 1. Rectal bleeding. The patient is hemodynamically stable. This certainly could represent recurrent bleeding from hemorrhoids based upon his recent colonoscopy findings. He does have a large tumor burden in the liver and this would affect hepatic synthetic function. He is thrombocytopenic and likely his coags are abnormal. I will check PT/INR as well. He also has some portal hypertension related to the tumor burden. I would recommend octreotide and correction of coags (possibly vitamin K). I did speak with the ED and he will have CT angiogram. I will plan sigmoidoscopy or colonoscopy either at later today or tomorrow depending on whether this is slowing. He has had lung mass with widely metastatic disease to the liver yet has not seen oncology yet and last appointment with pulmonary was prior to panendoscopy on 07/13. I would like for oncology and pulmonary to establish with him during this hospitalization since we need to determine whether there is any potential treatment or whether patient may benefit from discussing directives on whether there may be palliative therapy as well as end-of-life directives and whether hospice should be involved.
[2024-08-04 08:16] LABS: Activated Partial Thrombo Time 20.2 seconds (22.8-30.6); INR 1.12 (0.9-1.1); Lactic Acid 5.5 mmol/L (0.7-2.1); Prothrombin Time 12.4 seconds (10.1-12.5)
[2024-08-04] MEDS: 0.9 % SODIUM CHLORIDE 50 ML VIAL IV (08:22)
[2024-08-04] MEDS: IOPAMIDOL-370 (76%);100ML BOTTLE 80 ML IV (08:23)
[2024-08-04] MEDS: SODIUM CHLORIDE 0.9% 10ML SYR (RAD ONLY) 10 ML IV (08:23)
--- NOTE | 2024-08-04 08:25 | PC.NURSE ---
Pt back to room. Starting 2nd unit of emergent blood. Unit# [id number]
[2024-08-04 08:31] LABS: Lymphocytes % 5 % (10-50); Monocytes % 3 % (2-9); Neutrophils % 92 % (42-76); RBC Morphology Normal; Total Cells Counted 100
[2024-08-04 08:32] LABS: Platelet Estimate Slight Decrease
[2024-08-04 08:43] LABS: C-Reactive Protein 26.4 mg/L (0-4)
[2024-08-04 08:45] LABS: Lipase 1770 U/L (23-300)
--- NOTE | 2024-08-04 08:45 | PC.NURSE ---
2nd unit of emergent blood is complete. No reaction noted. Denies any pain, SOA, or chills. Temp and vitals are appropriate and WNL. Family at bedside.
[2024-08-04] MEDS: CALCIUM GLUC IN NACL, ISO-OSM 2 GM/100 ML BAG IV (08:48)
[2024-08-04 08:50] LABS: Troponin I 0.03 ng/ml (0.00-0.034)
[2024-08-04 08:57] LABS: Procalcitonin 34.5 ng/mL (0.0-2.0)
[2024-08-04 08:59] LABS: Anion Gap 14.7 mEq/L (5-15); Chloride 108 mmol/L (98-107)
[2024-08-04] MEDS: CEFTRIAXONE SODIUM 2 GM in 0.9 % SODIUM CHLORIDE 100 ML IV (09:00)
[2024-08-04 09:19] LABS: HIV Combo NEGATIVE (Negative)
--- NOTE | 2024-08-04 09:36 | XR_ITS ---
FINAL REPORT CLINICAL HISTORY: sepsis, undifferentiated COMPARISON: CTA chest 07/10/2024 FINDINGS: The heart size is normal. The mediastinum is normal. Irregular density in the right midlung measuring 2.4 cm concerning for underlying neoplasia. Findings were seen more optimally on CTA dated 07/10/2024. There are no pleural effusions. There is no pneumothorax. There is no osseous abnormality. IMPRESSION: Right midlung density concerning for underlying neoplasia. Reviewed, Interpreted and Dictated by Gio Sun MD Transcribed by Jenny Thompson Authenticated and [facility]
--- NOTE | 2024-08-04 09:43 | P.HP_ITS ---
History of Present Illness *Admission Date: 08/04/24 *Reason for visit:: bleeding per rectum *History of present illness: Mr. Wolfe is a 64-year-old male who presented earlier this month and was found to have new diagnosis of metastatic cancer of unknown primary. Suspicious for GI source given elevated CEA and CA 19-9. He has been undergoing outpatient workup but has been having continued weight loss, weight is down about 10 kg in the past month. He missed a PET scan earlier this week due to glucose abnormalities. He presented today to the ER because of bright red blood per rectum. States he has had diarrhea ever since starting metformin a few months ago. Stool panel at the beginning of the month was negative for C. difficile or analytes. Has continued to have worsening diarrhea however and underwent colonoscopy within the past month that showed a few polyps and hemorrhoids but no significant other findings. EGD did show some varices. States that for the past 48 hours she has been having bloody bowel movements, large bowel movement today that overflowed his depends. Continue to have abnormal weight loss. Continues have elevated liver chemistries. CAT scan obtained today of his abdomen showing diffuse colitis. Stable on room air. Of note, found to be hypotensive as well. Denies any fever. States he feels poorly. Sister and son at bedside assisting with care. In the ER, found to be anemic. Hemoglobin 2 weeks ago of 14, 12 on arrival to the ED. Transfusion initiated and received 2 units of packed red blood cells and 1 L of IV fluids. Initiated on broad- spectrum antibiotics due to his hypotensive state concerning for shock secondary to hypovolemia versus sepsis. Medicine consulted for admission and further management Upon arrival to the floor, patient is admitted to the ICU due to his shock state. Repeat hemoglobin after transfusion is at 10. Blood pressure showing improvement however, systolics in the 110s. Patient denies any nausea or vomiting. Is on 2 L oxygen for comfort. Afebrile. Currently alert and oriented. [facility] Disclaimer: The information contained in this section may have been updated after the patient was seen, as this information can be updated by other users. Medical History (Updated 08/04/24 @ 11:45 by So Carmichael MD) Nodule of right lung Mass of kidney Elevated liver enzymes Hilar lymphadenopathy Smoking greater than 30 pack years Lung nodule Hypokalemia Diarrhea Pedal edema Cigarette smoker Hypertension Onychomycosis Diabetes mellitus (~07/06/24) Surgical History History of colon resection History of appendectomy Family History Other Colon cancer Lung cancer Social History Smoking Status: Current every day smoker alcohol intake: never substance use type: unknown current occupational status: retired Travel in the last 8 weeks?: None Other Medical History Have you received the Flu Vaccine for this season: No Have you received the Pneumonia Vaccine: No Review of Systems Review of Systems Review of systems (narrative): 14 point review of systems performed, pertinent positives and negatives as per [facility] Meds Home Medications and Allergies Home Medications ?Medication ?Instructions ?Recorded ?Confirmed ?Type blood-glucose sensor (Dexcom G7 #3 ea 06/23/24 08/04/24 Rx Sensor device) blood-glucose,hotel associate,cont #1 ea 06/23/24 08/04/24 Rx (Dexcom G7 Hand Spray Operator) blood sugar diagnostic (Accu-Chek #100 ea 06/30/24 08/04/24 Rx Guide test strips) blood-glucose meter (Accu-Chek #1 ea 06/30/24 08/04/24 Rx Guide Glucose Meter) lancets (Accu-Chek Softclix #100 ea 06/30/24 08/04/24 Rx Lancets) calcium polycarbophil 625 mg tablet 1,250 mg (2 x 625 mg) PO BID 30 07/11/24 08/04/24 Rx days #120 tabs insulin glargine 100 unit/mL (3 10 unit (0.1 mL) SQ DAILY 30 days 07/11/24 08/04/24 Rx mL) subcutaneous pen (Lantus #15 mL Solostar U-100 Insulin) pen needle, diabetic 31 gauge x #100 ea 07/11/24 08/04/24 Rx 3/16 (Pen Needle) sodium di- and 1 tab PO Q6 10 days #40 tabs 07/11/24 08/04/24 Rx monophosphate-potassium phos monobasic 250 mg tablet (Phospha Neutral) nicotine (polacrilex) 2 mg buccal 2 mg buccal Q4HP PRN nicotine 07/15/24 08/04/24 History lozenge (Nicorette) cravings spironolactone 50 mg tablet 50 mg PO DAILY #30 tabs 07/23/24 08/04/24 Rx potassium chloride 20 mEq 40 meq (2 x 20 mEq) PO TID 10 days 07/27/24 08/04/24 Rx tablet,extended #60 tabs release(part/cryst) (Klor-Con M) albuterol sulfate 90 mcg/actuation 2 inh inhalation QIDP PRN 08/04/24 08/04/24 History aerosol inhaler shortness of breath or wheezing colestipol 1 gram tablet (Colestid) 2 g PO HS 08/04/24 08/04/24 History metformin 1,000 mg tablet 1,000 mg PO BID 08/04/24 08/04/24 History New Prescriptions to Start Prescriptions: Allergies Allergy/AdvReac Type Severity Reaction Status Date / Time No Known Allergies Allergy Verified 07/17/24 14:57 Exam Data for Last 24 hours Vital signs and Labs for Last 24 Hours: Temp Pulse Resp BP Pulse Ox O2 Del Method 97.4 F L 89 26 H 99/50 L 95 Room Air 08/04/24 07:24 08/04/24 07:24 08/04/24 07:24 08/04/24 07:24 08/04/24 07:24 08/04/24 07:24 Laboratory Results - last 24 hr 08/04/24 07:36: WBC 11.4 H, RBC 3.78 L, Hgb 12.3 L, Hct 37.4 L, MCV 98.9 H, MCH 32.5 H, MCHC 32.9, RDW 15.9, Plt Count 138 L, MPV 10.0, Neut % (Auto) 90.7 H, Lymph % (Auto) 4.1 L, [place] % (Auto) 3.8, Eos % (Auto) 0.0 L, Baso % (Auto) 0.2, Neut # (Auto) 10.3 H, Lymph # (Auto) 0.5 L, [place] # (Auto) 0.4, Eos # (Auto) 0.0, Baso # (Auto) 0.0, Total Counted 100, Neutrophils % (Manual) 92 H, Lymphocytes % (Manual) 5 L, Monocytes % (Manual) 3, Platelet Estimate Slight decrease, RBC Morphology Normal, PT 12.4, INR 1.12 H, APTT 20.2 L, Sodium 141, Potassium 4.7 D, Chloride 108 H, Carbon Dioxide 23, Anion Gap 14.7, BUN 27 H D, Creatinine 1.50 H D, Estimated Creat Clear 73, Estimated GFR 47 L, Est GFR ( Amer) 57 L D, Glucose 137 H D, Lactate 5.5 H, Calcium 8.1 L, Total Bilirubin 3.4 H, AST 228 H, ALT 287 H, Alkaline Phosphatase 380 H, Troponin I 0.03, C-Reactive Protein 26.4 H, Total Protein 5.1 L, Albumin 2.6 L, Globulin 2.5, Albumin/Globulin Ratio 1.0 L, Lipase 1770 H, Procalcitonin 34.5 H, Blood Type O Positive, Antibody Screen Negative, Crossmatch (AHG) See Detail 08/04/24 07:41: VBG pH 7.36, VBG pCO2 37.9, VBG pO2 30.9, VBG HCO3 20.7 L, VBG Total CO2 21.9 L, VBG O2 Saturation 55.2, VBG Base Excess -4.8 L, VBG Lactic Acid 6.6 H I & O for Last 24 hours: Intake & Output 08/01/24 08/02/24 08/03/24 08/04/24 23:59 23:59 23:59 23:59 Weight 105.233 kg Constitutional Constitutional: moderate distress, obese, chronically ill appearing and cooperative *Routine HEENT Exam Head: Present normocephalic Eye: Present EOMI and PERRL ENT: Present mucous membranes moist *Routine Neck Exam Neck: Present supple; Absent lymphadenopathy *Routine Respiratory Exam Respiratory: Present CTA bilaterally; Absent rhonchi, wheezes or crackles *Routine Cardiovascular Exam Cardiovascular: Present RRR *Routine Abdominal Exam Abdominal: Present soft, normoactive bowel sounds and tenderness (Nonfocal); Absent distended *Routine Rectal Exam Rectal:: deferred *Routine Genitalia Exam Genitalia:: deferred *Routine Extremities Exam Extremities: Present edema (2+ edema to knees); Absent cyanosis or clubbing *Routine Skin Exam Skin: Present intact and warm; Absent rash *Routine Neurological Exam Neurological: Present alert, oriented X3 and moving all extremities; Absent altered mental status Assessment and Plan *Assessment and plan (1) Pneumonia: Status: Acute Category: Medical Code(s): J18.9 - Pneumonia, unspecified organism (2) Shock: Status: Acute Category: Medical Code(s): R57.9 - Shock, unspecified (3) Acute GI bleeding: Status: Acute Category: Medical Code(s): K92.2 - Gastrointestinal hemorrhage, unspecified (4) Rectal bleeding: Status: Acute Category: Medical Code(s): K62.5 - Hemorrhage of anus and rectum (5) Unintentional weight loss: Status: Acute Category: Medical Code(s): R63.4 - Abnormal weight loss (6) Diarrhea: Status: Acute Category: Medical Code(s): R19.7 - Diarrhea, unspecified (7) Lung mass: Status: Acute Category: Medical Code(s): R91.8 - Other nonspecific abnormal finding of lung field (8) Metastasis to liver: Status: Acute Category: Medical Code(s): C78.7 - Secondary malignant neoplasm of liver and intrahepatic bile duct (9) Mass of kidney: Status: Inactive Category: Medical Code(s): N28.89 - Other specified disorders of kidney and ureter (10) Smoking greater than 30 pack years: Status: Acute Category: Social Hx Code(s): F17.210 - Nicotine dependence, cigarettes, uncomplicated (11) Transaminitis: Status: Acute Category: Medical Code(s): R74.01 - Elevation of levels of liver transaminase levels (12) Cigarette smoker: Problem Comment: current, 2024, greater than 40 pack year history Status: Acute Category: Social Hx Code(s): F17.210 - Nicotine dependence, cigarettes, uncomplicated (13) Hypertension: Status: Acute Category: Medical Code(s): I10 - Essential (primary) hypertension (14) Diabetes mellitus: Status: Acute Category: Medical Code(s): E11.9 - Type 2 diabetes mellitus without complications Plan 64-year-old male with recent diagnosis of metastatic cancer of unknown primary, presents to the ED with GI bleed/bright red blood per rectum. Discussed case with ER physician, request admission for further management of his shock state and suspected GI bleed. I agreed to admit for further care. GI consulted, a ppreciate their assistance. Necessitating ICU level of care due to patient's clinical instability. Problems addressed as follows: Acute blood loss anemia Diarrhea - Patient having bloody bowel movements. Received 2 units of packed red blood cells in the ED. Hemoglobin 2 weeks ago of 14, on arrival hemoglobin 12. Post H&H of 10. Transfusion threshold hemoglobin less than 7 if has any further active bleeding. - Initiated on pantoprazole 80 mg IV once, continue 40 mg IV twice daily - Due to presence of varices, will initiate octreotide drip - GI consulted to assist with care - Repeat stool panel pending as per my review he has diffuse colitis on CT, suspicion for inflammatory versus infectious process such as C. difficile as an etiology for his bloody bowel movements. - Diarrhea panel turn positive for C. difficile. Will initiate vancomycin 125 mg 4 times a day. - Repeat H&H ordered for this afternoon to monitor hemoglobin trend Shock: Hypovolemic versus septic - Pro-Martín elevated at 34.5, liver enzymes and lipase remain elevated. White count mildly elevated 11.4. Chest imaging does show concern for a pneumonia. Continue supplemental oxygen. Goal sats greater 90% - Initiated on broad-spectrum antibiotics of vancomycin and Zosyn IV. - Kidney function at baseline with BUN 27, creatinine 1.5 - Improved blood pressure with volume expansion including transfusion and 1 L LR - Systolics in the 90s on arrival, improved to 110s - Cultures obtained and pending. Will continue at least 48 hours of antibiotics before de-escalating - Repeat CBC, CMP, magnesium ordered for the morning Metastatic cancer of unknown primary, suspected lung versus colon -IR consulted for biopsy of either liver lesions or lung lesion. -CEA elevated at 746, CA 19-9 elevated at 1389, these have both increased in the past month -Will need follow-up with oncology, referred to Dr. Arredondo for further assistance Diabetes: A1c elevated 8.4 earlier this month, continue sliding scale insulin and fingersticks ACHS. Holding oral diabetes medications in the setting of shock/diarrhea Hypertension: Holding blood pressure meds in setting date/shock Tobacco use disorder: Nicotine patch as needed Full code Diabetic diet, n.p.o. at midnight Sister is surrogate decision-maker/POA
--- NOTE | 2024-08-04 09:52 | EXP.PHA.CONS ---
Pharmacy Consult Date: 08/04/24 Time: 09:52 Referring provider: DR. FIERRO Reason for Consult:: VANCOMYCIN DOSING Allergies Allergy/AdvReac Type Severity Reaction Status Date / Time No Known Allergies Allergy Verified 07/17/24 14:57 Home Medications ?Medication ?Instructions ?Recorded ?Confirmed ?Type blood-glucose sensor (Dexcom G7 #3 ea 06/23/24 07/17/24 Rx Sensor device) blood-glucose,sox analyst,cont #1 ea 06/23/24 07/17/24 Rx (Dexcom G7 Veterinary Surgery Technician) blood sugar diagnostic (Accu-Chek #100 ea 06/30/24 07/17/24 Rx Guide test strips) blood-glucose meter (Accu-Chek #1 ea 06/30/24 07/17/24 Rx Guide Glucose Meter) lancets (Accu-Chek Softclix #100 ea 06/30/24 07/17/24 Rx Lancets) calcium polycarbophil 625 mg tablet 1,250 mg (2 x 625 mg) PO BID 30 07/11/24 07/17/24 Rx days #120 tabs insulin glargine 100 unit/mL (3 10 unit (0.1 mL) SQ DAILY 30 days 07/11/24 07/17/24 Rx mL) subcutaneous pen (Lantus #15 mL Solostar U-100 Insulin) pen needle, diabetic 31 gauge x #100 ea 07/11/24 07/17/24 Rx 3/16 (Pen Needle) sodium di- and 1 tab PO Q6 10 days #40 tabs 07/11/24 07/17/24 Rx monophosphate-potassium phos monobasic 250 mg tablet (Phospha Neutral) albuterol sulfate 90 mcg/actuation 2 inh inhalation QID PRN shortness 07/13/24 07/17/24 Rx aerosol inhaler of breath or wheezing 90 days #8.5 grams colestipol 1 gram tablet (Colestid) 2 g (2 x 1 gram) PO .At bedtime 07/15/24 07/17/24 Rx #60 tabs nicotine (polacrilex) 2 mg buccal 2 mg buccal Q4H PRN nicotine 07/15/24 07/17/24 History lozenge (Nicorette) cravings spironolactone 50 mg tablet 50 mg PO DAILY #30 tabs 07/23/24 Rx potassium chloride 20 mEq 40 meq (2 x 20 mEq) PO TID 10 days 07/27/24 Rx tablet,extended #60 tabs release(part/cryst) (Julio Guzmán) New Prescriptions to Start Prescriptions: Height: 1.88 m Weight: 105.233 kg Laboratory Results:: Laboratory Results - last 24 hr 08/04/24 07:36: WBC 11.4 H, RBC 3.78 L, Hgb 12.3 L, Hct 37.4 L, MCV 98.9 H, MCH 32.5 H, MCHC 32.9, RDW 15.9, Plt Count 138 L, MPV 10.0, Neut % (Auto) 90.7 H, Lymph % (Auto) 4.1 L, Andrews % (Auto) 3.8, Eos % (Auto) 0.0 L, Baso % (Auto) 0.2, Neut # (Auto) 10.3 H, Lymph # (Auto) 0.5 L, Andrews # (Auto) 0.4, Eos # (Auto) 0.0, Baso # (Auto) 0.0, Total Counted 100, Neutrophils % (Manual) 92 H, Lymphocytes % (Manual) 5 L, Monocytes % (Manual) 3, Platelet Estimate Slight decrease, RBC Morphology Normal, PT 12.4, INR 1.12 H, APTT 20.2 L, Sodium 141, Potassium 4.7 D, Chloride 108 H, Carbon Dioxide 23, Anion Gap 14.7, BUN 27 H D, Creatinine 1.50 H D, Estimated Creat Clear 73, Estimated GFR 47 L, Est GFR ( Amer) 57 L D, Glucose 137 H D, Lactate 5.5 H, Calcium 8.1 L, Total Bilirubin 3.4 H, AST 228 H, ALT 287 H, Alkaline Phosphatase 380 H, Troponin I 0.03, C-Reactive Protein 26.4 H, Total Protein 5.1 L, Albumin 2.6 L, Globulin 2.5, Albumin/Globulin Ratio 1.0 L, Lipase 1770 H, Procalcitonin 34.5 H, Blood Type O Positive, Antibody Screen Negative, Crossmatch ([facility]) See Detail 08/04/24 07:41: VBG pH 7.36, VBG pCO2 37.9, VBG pO2 30.9, VBG HCO3 20.7 L, VBG Total CO2 21.9 L, VBG O2 Saturation 55.2, VBG Base Excess -4.8 L, VBG Lactic Acid 6.6 H Medical History: Medical History (Updated 08/04/24 @ 09:45 by Gale Padilla DO) Mass of kidney Elevated liver enzymes Hilar lymphadenopathy Smoking greater than 30 pack years Lung nodule Hypokalemia Diarrhea Pedal edema Cigarette smoker Hypertension Onychomycosis Diabetes mellitus (~07/06/24) Assessment and Plan Assessment and plan all Dx Assessment and Plan for all problems:: Pharmacokinetic dosing service Objective: Patient: Floor: Age: 64 yo Serum creatinine: 1.50 mg/dL Height: 74.0 Inches Weight (kg): 105.2 Assessment: IBW (kg): 82.20 Dosing wt(kg): 105.2 Estimated Creatinine clearance (ml/min): 57.1 CRCL method: Cockcroft and Gault using ibw(default). Drug selected: Vancomycin Loading dose (mg): Vd (liters): 84.2 (factor used: 0.8 L/kg) Addison (hr-1): 0.052 Half life (hrs): 13.33 CLvanco=?? 4.378 L/hr Recommended dose: 1250 mg Interval: 12 hrs Infusion time (hrs): 2.0 Predicted peak (mcg/mL): 30.4 Predicted trough (mcg/mL): 18.07 Total body weight is being used for vancomycin dosing. Recommendations: Give Vancomycin 1250 mg q 12 hrs with an expected Cpeak of 30.4 mcg/ml and an expected Ctrough of 18.07 mcg/ml AUC 0-24 /[place] Data: [place] 0.5 mcg/mL:?? AUC/[place]:? 1142.1 [place] 1.0 mcg/mL:?? AUC/[place]:? 571.0 --------- [place] 1.5 mcg/mL:?? AUC/[place]:? 380.7 [place] 2.0 mcg/mL:?? AUC/[place]:? 285.5 Thank you for the consult, will continue to follow. -TIFFANIE DOTSON, TONYD
[2024-08-04] MEDS: PIPERACILLIN/TAZO 4.5 GM in 0.9 % SODIUM CHLORIDE 100 ML IV ×3 (09:58→22:46)
[2024-08-04 10:20] LABS: Hematocrit 31.1 % (42.0-52.0)
[2024-08-04 10:24] LABS: Hemoglobin 10.2 g/dL (14.1-18.0)
--- NOTE | 2024-08-04 10:25 | PC.NURSE ---
arrived to floor by stretcher from ED
[2024-08-04] MEDS: VANCOMYCIN/WATER FOR INJ (PEG) 1.5 GM/300 ML PIGGYBACK IV ×2 (10:47→23:42)
--- NOTE | 2024-08-04 10:58 | PC.NURSE ---
bottom left foot
[2024-08-04 11:01] LABS: Hepatitis C Ab Qual. W/ RFX NEGATIVE (Negative)
--- NOTE | 2024-08-04 11:22 | HMH.PHAINT1 ---
Pharmacy Intervention Comments: MEDICATION RECONCILIATION COMPLETED ON PATIENT USING EXTERNAL FILL HISTORY FROM PHARMACY AND DISCHARGE SUMMARY FROM PREVIOUS ADMISSION. -TIFFANIE DOTSON, TONYD
--- NOTE | 2024-08-04 11:44 | PC.NURSE ---
patient complaining of chest pain on arrival that was resolved with nitroglycerin
[2024-08-04 11:49] LABS: Adenovirus F 40/41, stool Not Detected (NotDetected); Astrovirus Not Detected (NotDetected); Campylobacter Not Detected (NotDetected); Cryptosporidium Not Detected (NotDetected); Cyclospora Cayetanesis Not Detected (NotDetected); Entamoeba histolytica Not Detected (NotDetected); Enteroaggregative E coli Not Detected (NotDetected); Enteropathogenic E coli Not Detected (NotDetected); Enterotoxigenic E coli Not Detected (NotDetected); Giardia lamblia Not Detected (NotDetected); Norovirus Not Detected (NotDetected); Plesimonas Shigalloides, PCR Not Detected (NotDetected); Rotavirus A Not Detected (NotDetected); Salmonella, PCR Not Detected (NotDetected); Sapovirus Not Detected (NotDetected); Shiga-like toxin E coli Not Detected (NotDetected); Shigella Enterovasive E coli Not Detected (NotDetected); Vibrio Cholerae Not Detected (NotDetected); Vibrio, PCR Not Detected (NotDetected); Yersinia Entercolitica, PCR Not Detected (NotDetected)
[2024-08-04 11:49] LABS: Reflex Lactic Add Lactic Reflex
[2024-08-04 14:19] LABS: Hematocrit 35.8 % (42.0-52.0)
[2024-08-04 14:20] LABS: Clostridium Difficile A/B, PCR Detected (NotDetected)
[2024-08-04 14:24] LABS: Hemoglobin 12.2 g/dL (14.1-18.0)
[2024-08-04] MEDS: VANCOMYCIN HCL 50MG/ML 150ML KIT 125 MG PO ×3 (14:40→20:28)
--- NOTE | 2024-08-04 15:08 | HMH.PTEV ---
Physical Therapy Evaluation Rehab PT IP Evaluation Start: 08/04/24 10:38 Freq: .once Status: Active Protocol: Document 08/04/24 14:10 YAN (Rec: 08/04/24 15:07 PHOWILLIAM [id number]) Subjective/History History History Mr. Wolfe is a 64-year-old male who presented earlier this month and was found to have new diagnosis of metastatic cancer of unknown primary. Suspicious for GI source given elevated CEA and CA 19-9. He has been undergoing outpatient workup but has been having continued weight loss, weight is down about 10 kg in the past month. He missed a PET scan earlier this week due to glucose abnormalities. He presented today to the ER because of bright red blood per rectum. Necessitating ICU level of care due to patient's shock state. Pt reports that he lives alone, but has family members to check on him during the day and at night. Prior to his diagnosis, pt was fully independent with all mobility and did not require an AD. Subjective Subjective Pt presents supine in bed with family member in the room. He was willing to participate in PT this pm. Pt states that he is feeling very weak, but better than when he came in this morning. Pt sat at EOB for ~5 minutes and returned to supine at end of session. New diagnosis of cancer in past 12 Yes months? [facility] How much help from another person do you currently need... Turning from your back to your side A little while in a flat bed without using bedrails? Moving from lying on back to sitting on A little the side of a flat bed without using bedrails? Moving to and from a bed to a chair ( A lot including a wheelchair)? Standing up from a chair using your arms A lot ? (e.g., wheelchair, bedside chair) Walking in hospital room? A lot Climbing 3-5 steps with a railing? A lot Mobility Score 14 Mobility Level [facility] Mobility Calculator Mobility 4 Move to chair/ commode Rehab PT IP Eval Objective Appearance Patient Behavior Appropriate,Cooperative Patient Orientation Person,Place,Time Difficulty following instructions none Speech Pattern Clear,Appropriate Ambulation Patient Able to Ambulate No Balance Sitting Balance Steady, safe Dynamic Sitting Balance Ability Normal Transfers Bed Transfer Ability Minimal x 1 (25% assist) Rehab PT IP prob,goals,plan Problems Date of Evaluation: 08/04/24 PT IP Problems Bed Mobility,Transfers,Gait, Balance,Safety Rehab Potential Rehab Potential Good Plan PT Intervention Plan Bed Mobility,Transfers,Gait, Balance,Safety,Therapeutic Exercise PT Plan Frequency Daily Duration LOS Discharge Goals Bed Transfer Ability Contact Guard/Hand Hold Sit to Stand Chair Transfer Ability Minimal x 1 (25% assist) Ambulation Distance (feet) 5 Discharge Plan PT Discharge Plan Patient is currently most appropriate for placement in a rehab facility following d/c. Pt was able to sit at EOB with SBA ~5 minutes, but was fatigued. Skilled acute therapy is currently indicated to improve LE strength, endurance, and transfer ability to return to PLOF with all ADLs, transfers, and ambulation. Eval Complexity Eval Charge Codes 45836 - High Complexity PHYSICIAN CERTIFICATION: I certify the specified therapy services for Bolivar Wlofe are required, authorized, and reviewed every 30 days.
[2024-08-04 16:35] LABS: POC Glucose,Bedside 213 (70-110)
[2024-08-04 18:25] LABS: Alanine Aminotransferase 269 U/L (12-78); Albumin Level 2.3 g/dl (3.5-5.0); Alkaline Phosphatase 304 U/L (38-126); Anion Gap 6.8 mEq/L (5-15); Aspartate Amino Transferase 252 U/L (17-59); Basophils % 0.1 % (0.1-2.0); Bilirubin,Total 2.7 mg/dl (0.2-1.3); Blood Urea Nitrogen 28 mg/dl (9-20); Calcium 7.4 mg/dl (8.4-10.2); Carbon Dioxide 23 mmol/L (22.0-30.0); Chloride 107 mmol/L (98-107); Creatinine Clearance Estimated 88 mL/min (50-200); Estimated Glomerular Filt Rate 61 ml/min (>60); GFR (African American) 74 ML/MIN (>60); Globulin 2.4 g/dL (1.3-3.2); Glucose 181 mg/dl (74-100); Hematocrit 36.7 % (42.0-52.0); Hemoglobin 12.4 g/dL (14.1-18.0); Lactic Acid Follow Up (RFLX 1) 1.5 mmol/L (0.7-2.1); Lymphocytes # 0.4 K/mm3 (0.7-4.5); Lymphocytes % 4.5 % (10-50); Mean Corpuscular HGB Conc 33.8 g/dL (31.8-35.4); Mean Corpuscular Hemoglobin 31.7 pg (27.0-31.2); Mean Corpuscular Volume 93.9 fl (80-94); Mean Platelet Volume 9.9 fl (7.4-10.4); Monocytes # 0.3 K/mm3 (0.1-1.0); Monocytes % 3.2 % (1.7-9.3); Neutrophils % 90.8 % (37.0-80.0); Nucleated Red Blood Cells # 0 10^3/uL; Nucleated Red Blood Cells % 0 %; Platelet Count 121 K/mm3 (142-424); Potassium 3.8 mmoL/L (3.5-5.1); Red Blood Count 3.91 M/mm3 (4.60-6.20); Red Cell Distribution Width 17.2 % (11.5-17.5); Red Cell Distribution Width-SD 58.2 fL; Sodium 133 mmol/L (136-145); Total Protein,Serum 4.7 g/dl (6.3-8.2); White Blood Count 9.9 K/mm3 (4.8-10.8)
[2024-08-04 18:27] LABS: MANUAL DIFFERENTIAL MANUAL DIFFERENTIAL (MANUAL DIFF)
[2024-08-04 18:37] LABS: Troponin I 0.02 ng/ml (0.00-0.034)
[2024-08-04 20:15] LABS: Lymphocytes % 7 % (10-50); Neutrophils % 93 % (42-76); Total Cells Counted 100
[2024-08-04 20:16] LABS: Platelet Estimate Normal; RBC Morphology Normal
[2024-08-04] MEDS: humaLOG 100 UNITS/ML 10ML VIAL (SSI) SUBCUT (20:28)
[2024-08-05] VITALS (23 sets, daily range): BP systolic 108–154; BP diastolic 57–91; PULSE 62–103; RESP 12–24; TEMP 36.5–36.8; O2SAT 92–95; BMI 28.9
[2024-08-05] MEDS: OCTREOTIDE ACETATE 500 MCG in 0.9 % SODIUM CHLORIDE 250 ML 25.5 MCG IV ×2 (03:29→13:58)
[2024-08-05 04:58] LABS: Basophils % 0.1 % (0.1-2.0); Hematocrit 32.5 % (42.0-52.0); Lymphocytes # 0.3 K/mm3 (0.7-4.5); Lymphocytes % 3.7 % (10-50); Mean Corpuscular HGB Conc 33.8 g/dL (31.8-35.4); Mean Corpuscular Hemoglobin 31.7 pg (27.0-31.2); Mean Corpuscular Volume 93.7 fl (80-94); Mean Platelet Volume 10.2 fl (7.4-10.4); Monocytes # 0.3 K/mm3 (0.1-1.0); Monocytes % 3.2 % (1.7-9.3); Neutrophils # 7.6 K/mm3 (1.8-7.8); Neutrophils % 92.1 % (37.0-80.0); Nucleated Red Blood Cells # 0 10^3/uL; Nucleated Red Blood Cells % 0 %; Platelet Count 101 K/mm3 (142-424); Red Blood Count 3.47 M/mm3 (4.60-6.20); Red Cell Distribution Width 16.8 % (11.5-17.5); Red Cell Distribution Width-SD 57.2 fL; White Blood Count 8.2 K/mm3 (4.8-10.8)
[2024-08-05 05:01] LABS: MANUAL DIFFERENTIAL MANUAL DIFFERENTIAL (MANUAL DIFF)
[2024-08-05 05:03] LABS: Hemoglobin 10.9 g/dL (14.1-18.0)
[2024-08-05 05:06] LABS: Albumin Level 2.1 g/dl (3.5-5.0); Chloride 108 mmol/L (98-107); Potassium 3.3 mmoL/L (3.5-5.1); Sodium 136 mmol/L (136-145)
[2024-08-05 05:09] LABS: Alanine Aminotransferase 228 U/L (12-78); Alkaline Phosphatase 255 U/L (38-126); Anion Gap 7.3 mEq/L (5-15); Aspartate Amino Transferase 177 U/L (17-59); Bilirubin,Total 2.5 mg/dl (0.2-1.3); Blood Urea Nitrogen 26 mg/dl (9-20); Carbon Dioxide 24 mmol/L (22.0-30.0); Creatinine Clearance Estimated 89 mL/min (50-200); Estimated Glomerular Filt Rate 61 ml/min (>60); GFR (African American) 74 ML/MIN (>60); Globulin 2.2 g/dL (1.3-3.2); Total Protein,Serum 4.3 g/dl (6.3-8.2)
[2024-08-05 05:10] LABS: Calcium 6.8 mg/dl (8.4-10.2); Glucose 231 mg/dl (74-100); Magnesium 1.9 mg/dl (1.6-2.3)
[2024-08-05] MEDS: PIPERACILLIN/TAZO 4.5 GM in 0.9 % SODIUM CHLORIDE 100 ML IV ×4 (05:36→21:30)
[2024-08-05 05:48] LABS: Lymphocytes % 3 % (10-50); Neutrophils % 97 % (42-76); Total Cells Counted 100
[2024-08-05 05:50] LABS: Platelet Estimate Normal; RBC Morphology Normal
[2024-08-05] MEDS: humaLOG 100 UNITS/ML 10ML VIAL (SSI) SUBCUT ×4 (06:33→21:31)
[2024-08-05 06:35] LABS: POC Glucose,Bedside 247 (70-110)
--- NOTE | 2024-08-05 09:00 | CT_ITS ---
FINAL REPORT CLINICAL HISTORY: liver mets FINDINGS: CT GUIDED LIVER MASS CORE BIOPSY. HISTORY: Hepatic mass Attending radiologist: Dr. Sun Physician Heavy Equipment Mechanic: Brennen Mathesw PA-C PROCEDURE: After informed consent was obtained and a timeout was performed, the patient was prepped and draped in usual sterile fashion over the right upper quadrant. Utilizing local anesthesia and sterile technique with a coaxial system, access to lesion was obtained under direct CT guidance. A total of 6 separate 18-gauge core biopsies were obtained under direct CT guidance Post biopsy films demonstrate no evidence of acute complication. The patient received moderate procedural sedation. The patient tolerated the procedure well and left the department in good condition. The attending pathologist assistant golf coach determined that the sample was contain diagnostic material. PROCEDURAL SEDATION: 1 mg of IV Versed and 25 mcg of Fentanyl were administered. Continuous vital sign monitoring was used. An RN was present during the sedation process. Overall sedation time was 15 minutes. IMPRESSION: Status post CT guided core biopsy of liver mass without immediate complication. Reviewed, Interpreted and Dictated by Gio Sun MD Transcribed by NISHA Menon Authenticated and . [facility]
[2024-08-05] MEDS: VANCOMYCIN HCL 50MG/ML 150ML KIT 125 MG PO ×4 (10:01→21:30)
[2024-08-05] MEDS: SODIUM CHLORIDE 3% 15ML NEB 3 ML IH (10:04)
[2024-08-05] MEDS: VANCOMYCIN/WATER FOR INJ (PEG) 1.5 GM/300 ML PIGGYBACK IV ×2 (10:41→22:18)
[2024-08-05 11:23] LABS: POC Glucose,Bedside 299 (70-110)
--- NOTE | 2024-08-05 13:01 | EXP.MED.FU ---
Subjective *Date: 08/05/24 *Time: 15:54 Interval history: Patient sitting up in bed eating lunch. No complaints of pain. Continues to have diarrhea. PCR panel positive for C. difficile and he is started vancomycin. He reports no change in diarrhea so far. He is completed CT-guided liver biopsy and awaiting pathology report. Still with 4++ pitting edema in bilateral lower extremities and increasing edema in bilateral hands. Exam Data for Last 24 hours Vital signs and Labs for Last 24 Hours: Temp Pulse Resp BP Pulse Ox O2 Del Method O2 Flow Rate 97.8 F 103 H 19 124/66 93 L Room Air 2 08/05/24 09:47 08/05/24 11:15 08/05/24 11:15 08/05/24 11:15 08/05/24 11:15 08/05/24 11:15 08/04/24 16:00 Laboratory Results - last 24 hr 08/04/24 11:42: Stl Aeromonas (PCR) Not detected, Stl C. cayetanensis PCR Not detected, Stool Rotavirus (PCR) Not detected, Stl Adenov F 40/41 PCR Not detected, Stool Astrovirus (PCR) Not detected, Stool Campylobacter PCR Not detected, Stl C.difficile Tox PCR Detected A, Stool Cryptosporidium PCR Not detected, Stl E.coli Shiga Tox PCR Not detected, Stool E coli O157 PCR Not detected, Stl Enterotoxigenic E PCR Not detected, Stool EPEC (PCR) Not detected, Stool EAEC (PCR) Not detected, Stl E. histolytica PCR Not detected, Stool Giardia Lamblia PCR Not detected, Stool Salmonella PCR Not detected, Stool Sapovirus (PCR) Not detected, Stl P. shigelloides PCR Not detected, Stl Shigella/EIEC PCR Not detected, St Y.enterocolitica PCR Not detected, Stool Vibrio (PCR) Not detected, Stl Vibrio cholerae PCR Not detected, Stl Norovirus GI/GII PCR Not detected 08/04/24 14:10: Hgb 12.2 L D, Hct 35.8 L 08/04/24 16:24: POC Glucose 213 H 08/04/24 17:51: WBC 9.9, RBC 3.91 L, Hgb 12.4 L, Hct 36.7 L, MCV 93.9, MCH 31.7 H, MCHC 33.8, RDW 17.2, Plt Count 121 L, MPV 9.9, Neut % (Auto) 90.8 H, Lymph % (Auto) 4.5 L, Mccone % (Auto) 3.2, Eos % (Auto) 0.0 L, Baso % (Auto) 0.1, Neut # (Auto) 9.0 H, Lymph # (Auto) 0.4 L, Mccone # (Auto) 0.3, Eos # (Auto) 0.0, Baso # (Auto) 0.0, Total Counted 100, Neutrophils % (Manual) 93 H, Lymphocytes % (Manual) 7 L, Platelet Estimate Normal, RBC Morphology Normal, Sodium 133 L, Potassium 3.8, Chloride 107, Carbon Dioxide 23, Anion Gap 6.8, BUN 28 H, Creatinine 1.20, Estimated Creat Clear 88, Estimated GFR 61, Est GFR ( Amer) 74 D, Glucose 181 H D, Lactate 1.5, Calcium 7.4 L, Total Bilirubin 2.7 H, AST 252 H, ALT 269 H, Alkaline Phosphatase 304 H, Troponin I 0.02, Total Protein 4.7 L, Albumin 2.3 L D, Globulin 2.4, Albumin/Globulin Ratio 1.0 L 08/05/24 04:27: WBC 8.2, RBC 3.47 L, Hgb 10.9 L D, Hct 32.5 L, MCV 93.7, MCH 31.7 H, MCHC 33.8, RDW 16.8, Plt Count 101 L, MPV 10.2, Neut % (Auto) 92.1 H, Lymph % (Auto) 3.7 L, Mccone % (Auto) 3.2, Eos % (Auto) 0.0 L, Baso % (Auto) 0.1, Neut # (Auto) 7.6, Lymph # (Auto) 0.3 L, Mccone # (Auto) 0.3, Eos # (Auto) 0.0, Baso # (Auto) 0.0, Total Counted 100, Neutrophils % (Manual) 97 H, Lymphocytes % (Manual) 3 L, Platelet Estimate Normal, RBC Morphology Normal, Sodium 136, Potassium 3.3 L, Chloride 108 H, Carbon Dioxide 24, Anion Gap 7.3, BUN 26 H, Creatinine 1.20, Estimated Creat Clear 89, Estimated GFR 61, Est GFR ( Amer) 74, Glucose 231 H D, Calcium 6.8 L, Magnesium 1.9, Total Bilirubin 2.5 H, AST 177 H D, ALT 228 H, Alkaline Phosphatase 255 H, Total Protein 4.3 L, Albumin 2.1 L, Globulin 2.2, Albumin/Globulin Ratio 1.0 L 08/05/24 06:15: POC Glucose 247 H 08/05/24 11:11: POC Glucose 299 H I & O for Last 24 hours: Intake & Output 08/03/24 08/04/24 08/05/24 08/06/24 11:59 11:59 11:59 11:59 Intake Total 100 1105 Output Total 1925 Balance 100 -820 Weight 100.924 kg 102.376 kg Microbiology Reports for the Last 24 Hours: Microbiology 08/04/24 08:55 Blood Blood Culture - Preliminary NO GROWTH AFTER 24 HOURS 08/04/24 10:40 Anus CRE Surveillance Culture - Final 08/04/24 08:57 Blood Blood Culture - Preliminary *Routine HEENT Exam Head: Present normocephalic and atraumatic ENT: Present mucous membranes moist *Routine Respiratory Exam Respiratory: Present CTA bilaterally, normal respiratory effort, able to speak in complete sentences and symmetric chest movement *Routine Cardiovascular Exam Cardiovascular: Present RRR *Routine Abdominal Exam Abdominal: Present soft and distended (mild soft distention) *Routine Extremities Exam Extremities: Present edema (4++ pitting edema bilateral lower extremities and edema bilateral hands) Comments: Significant tender to palpation bilateral lower extremity *Routine Skin Exam Skin: Present intact *Routine Neurological Exam Neurological: Present alert and oriented X3 Assessment and Plan *Assessment and plan (1) Colitis: Status: Acute Category: Medical Code(s): K52.9 - Noninfective gastroenteritis and colitis, unspecified (2) Metastatic cancer: Status: Acute Category: Medical Code(s): C79.9 - Secondary malignant neoplasm of unspecified site (3) Anemia: Status: Acute Category: Medical Code(s): D64.9 - Anemia, unspecified (4) Acute GI bleeding: Status: Acute Category: Medical Code(s): K92.2 - Gastrointestinal hemorrhage, unspecified (5) Elevated liver enzymes: Status: Acute Category: Medical Code(s): R74.8 - Abnormal levels of other serum enzymes (6) Metastatic lung cancer (metastasis from lung to other site): Status: Acute Category: Medical Code(s): C34.90 - Malignant neoplasm of unspecified part of unspecified bronchus or lung (7) Metastasis to liver: Status: Acute Category: Medical Code(s): C78.7 - Secondary malignant neoplasm of liver and intrahepatic bile duct (8) Lower extremity edema: Status: Acute Category: Medical Code(s): R60.0 - Localized edema (9) Fecal urgency: Status: Acute Category: Medical Code(s): R15.2 - Fecal urgency (10) Diarrhea: Status: Acute Category: Medical Code(s): R19.7 - Diarrhea, unspecified Plan 1. GI bleed/colitis/C. difficile/diarrhea Patient is status post recent colonoscopy with hemorrhoidal banding. It is more likely the C. difficile has contributed to the recent onset of rectal bleeding related to the colitis. Expect improved symptoms with PO vancomycin 2. Peripheral edema Bilateral LE edema symptoms have become painful and edema now includes his hands. Concerning for protein-losing enteropathy (albumin low at 2.1, total protein low at 4.3) given hepatic tumor burden versus portal hypertension symptoms related to tumor burden. Will start a low-dose Lasix in conjunction with spironolactone (patient has been struggling with some low potassium with this excessive diarrhea). I recommend a high-protein diet when he is able to advance. 3. Metastatic lung cancer/liver metastasis The patient underwent CT guided liver biopsy. Awaiting pathology report.
[2024-08-05 16:30] LABS: POC Glucose,Bedside 298 (70-110)
[2024-08-05] MEDS: FUROSEMIDE 20MG TABLET 20 MG PO (16:43)
[2024-08-05] MEDS: SPIRONOLACTONE 25MG TABLET 50 MG PO (16:44)
--- NOTE | 2024-08-05 18:32 | P.PN_ITS ---
Subjective *Date: 08/05/24 *Time: 18:37 Interval history: Marginal improvement today. Continues to necessitate stepdown level of care. Going for biopsy of liver. Stable on 2 L oxygen. Blood culture returned positive for E. coli. Very weak, therapy working with patient today. Still maria ving diarrhea. Medical Exam Vital signs and Labs for Last 24 Hours: Vital Signs Temp Pulse Pulse Resp BP Pulse Ox O2 Del Method 08/05/24 18:00 79 20 154/75 H 93 L Room Air 08/05/24 17:00 Room Air 08/05/24 17:00 65 16 126/71 92 L Room Air 08/05/24 16:00 70 08/05/24 15:00 Room Air 08/05/24 14:00 75 16 135/65 92 L Room Air 08/05/24 14:00 70 92 L Room Air 08/05/24 13:00 Room Air 08/05/24 12:00 90 17 149/66 H 94 L Room Air 08/05/24 12:00 100 H 08/05/24 11:15 103 H 19 124/66 93 L Room Air 08/05/24 11:00 Room Air 08/05/24 11:00 81 16 115/61 92 L Room Air 08/05/24 10:45 80 16 121/59 L 93 L Room Air 08/05/24 10:30 83 16 119/57 L 93 L Room Air 08/05/24 10:04 99 H 08/05/24 10:00 87 14 114/59 L 94 L Room Air 08/05/24 09:47 97.8 F 87 14 113/57 L 94 L Room Air 08/05/24 08:00 78 16 128/64 92 L Room Air 08/05/24 08:00 80 08/05/24 08:00 93 L Room Air 08/05/24 07:00 78 20 131/61 93 L Room Air 08/05/24 06:37 Room Air 08/05/24 06:00 86 12 123/61 94 L Room Air 08/05/24 05:00 84 18 146/76 H 95 Room Air 08/05/24 04:59 Room Air 08/05/24 04:00 79 94 L Room Air 08/05/24 04:00 75 08/05/24 04:00 98.2 F 77 20 112/59 L 92 L Room Air 08/05/24 03:00 Room Air 08/05/24 03:00 80 20 133/70 94 L Room Air 08/05/24 02:00 78 20 108/68 L 94 L Room Air 08/05/24 01:00 Room Air 08/05/24 01:00 78 20 118/61 94 L Room Air 08/05/24 00:00 75 94 L Room Air 08/05/24 00:00 80 08/05/24 00:00 97.9 F 85 22 118/60 94 L Room Air 08/04/24 23:00 91 H 22 123/63 94 L Room Air 08/04/24 23:00 Room Air 08/04/24 22:00 87 24 123/62 95 Room Air 08/04/24 21:00 89 14 125/73 95 Room Air 08/04/24 20:34 Room Air 08/04/24 20:00 78 08/04/24 20:00 73 95 Room Air 08/04/24 20:00 98.7 F 73 16 119/62 95 Room Air 08/04/24 19:56 97.7 F 08/04/24 19:00 74 19 121/64 95 Room Air 08/04/24 18:47 Room Air Intake and Output 08/05/24 08/05/24 08/05/24 07:59 15:59 23:59 Intake Total 240 / 1050 810 / 1050 Output Total 800 / 1600 300 / 1600 500 / 1600 Balance -800 / -550 -60 / -550 310 / -550 Intake: Intake, Oral Amount 240 / 360 120 / 360 Intake, Total IV Amount 690 / 690 Octreotide Acetate 500 mcg In 0 190 / 190 .9 % Sodium Chloride 250 ml @ 50 MCG/HR 25.5 mls/hr IV .Q10H JOSEPH Rx#:[id number] Piperacillin/Tazo 4.5 gm In 0.9 200 / 200 % Sodium Chloride 100 ml @ 200 mls/hr IV Q6H JOSEPH Rx#:[id number] Vancomycin/Water For Inj (Peg) 300 / 300 1.5 gm In 300 ml @ 150 mls/hr IV Q12H JOSEPH Rx#:[id number] Output: Output, Urine Amount 800 / 1600 300 / 1600 500 / 1600 Other: Number of Unmeasured Voids 0 Number of Bowel Movements 1 2 1 Weight 102.376 kg Patient Weight 08/05/24 23:59 Weight 102.376 kg Laboratory Results - last 24 hr 08/04/24 17:51: Total Counted 100, Neutrophils % (Manual) 93 H, Lymphocytes % (Manual) 7 L, Platelet Estimate Normal, RBC Morphology Normal, Sodium 133 L, Potassium 3.8, Chloride 107, Carbon Dioxide 23, Anion Gap 6.8, BUN 28 H, Creatinine 1.20, Estimated Creat Clear 88, Estimated GFR 61, Est GFR ( Amer) 74 D, Glucose 181 H D, Lactate 1.5, Calcium 7.4 L, Total Bilirubin 2.7 H, AST 252 H, ALT 269 H, Alkaline Phosphatase 304 H, Troponin I 0.02, Total Protein 4.7 L, Albumin 2.3 L D, Globulin 2.4, Albumin/Globulin Ratio 1.0 L 08/05/24 04:27: WBC 8.2, RBC 3.47 L, Hgb 10.9 L D, Hct 32.5 L, MCV 93.7, MCH 31.7 H, MCHC 33.8, RDW 16.8, Plt Count 101 L, MPV 10.2, Neut % (Auto) 92.1 H, Lymph % (Auto) 3.7 L, Wagoner % (Auto) 3.2, Eos % (Auto) 0.0 L, Baso % (Auto) 0.1, Neut # (Auto) 7.6, Lymph # (Auto) 0.3 L, Wagoner # (Auto) 0.3, Eos # (Auto) 0.0, Baso # (Auto) 0.0, Total Counted 100, Neutrophils % (Manual) 97 H, Lymphocytes % (Manual) 3 L, Platelet Estimate Normal, RBC Morphology Normal, Sodium 136, Potassium 3.3 L, Chloride 108 H, Carbon Dioxide 24, Anion Gap 7.3, BUN 26 H, Creatinine 1.20, Estimated Creat Clear 89, Estimated GFR 61, Est GFR ( Amer) 74, Glucose 231 H D, Calcium 6.8 L, Magnesium 1.9, Total Bilirubin 2.5 H, AST 177 H D, ALT 228 H, Alkaline Phosphatase 255 H, Total Protein 4.3 L, Albumin 2.1 L, Globulin 2.2, Albumin/Globulin Ratio 1.0 L 08/05/24 06:15: POC Glucose 247 H 08/05/24 11:11: POC Glucose 299 H 08/05/24 16:22: POC Glucose 298 H I & O for Labs for Last 24 Hours: Intake & Output 08/02/24 08/03/24 08/04/24 08/05/24 23:59 23:59 23:59 23:59 Intake Total 1205 / 1205 1050 / 1050 Output Total 825 / 825 1600 / 1600 Balance 380 / 380 -550 / -550 Weight 100.924 kg 102.376 kg Microbiology Reports for the Last 24 Hours: Microbiology 08/04/24 08:55 Blood Blood Culture - Preliminary NO GROWTH AFTER 24 HOURS 08/04/24 10:40 Anus CRE Surveillance Culture - Final 08/04/24 08:57 Blood Blood Culture - Preliminary Constitutional: Present mild distress, chronically ill appearing and cooperative Head: Present atraumatic and normocephalic ENT: Present normal exam Respiratory: Present normal respiratory effort; Absent rhonchi, wheezes or crackles Cardiac: Present Reg Rate and Rhythm GI: Present soft, tenderness (Nonfocal) and normal bowel sounds; Absent di stention Extremities: Present normal inspection, full ROM and edema (3+ to knees, 2+ in all) Skin: Present intact and pallor; Absent erythema Neuro: Present Grossly Intact, alert, awake, oriented x 3 and moves all extremities Assessment and Plan *Assessment and plan (1) C. difficile colitis: Status: Acute Category: Medical Code(s): A04.72 - Enterocolitis due to Clostridium difficile, not specified as recurrent (2) E coli bacteremia: Status: Acute Category: Medical Code(s): R78.81 - Bacteremia; B96.20 - Unspecified Escherichia coli [E. coli] as the cause of diseases classified elsewhere (3) Pneumonia: Status: Acute Category: Medical Code(s): J18.9 - Pneumonia, unspecified organism (4) Shock: Status: Acute Category: Medical Code(s): R57.9 - Shock, unspecified (5) Acute GI bleeding: Status: Acute Category: Medical Code(s): K92.2 - Gastrointestinal hemorrhage, unspecified (6) Rectal bleeding: Status: Acute Category: Medical Code(s): K62.5 - Hemorrhage of anus and rectum (7) Unintentional weight loss: Status: Acute Category: Medical Code(s): R63.4 - Abnormal weight loss (8) Diarrhea: Status: Acute Category: Medical Code(s): R19.7 - Diarrhea, unspecified (9) Lung mass: Status: Acute Category: Medical Code(s): R91.8 - Other nonspecific abnormal finding of lung field (10) Metastasis to liver: Status: Acute Category: Medical Code(s): C78.7 - Secondary malignant neoplasm of liver and intrahepatic bile duct (11) Mass of kidney: Status: Inactive Category: Medical Code(s): N28.89 - Other specified disorders of kidney and ureter (12) Smoking greater than 30 pack years: Status: Acute Category: Social Hx Code(s): F17.210 - Nicotine dependence, cigarettes, uncomplicated (13) Transaminitis: Status: Acute Category: Medical Code(s): R74.01 - Elevation of levels of liver transaminase levels (14) Cigarette smoker: Problem Comment: current, 2024, greater than 40 pack year history Status: Acute Category: Social Hx Code(s): F17.210 - Nicotine dependence, cigarettes, uncomplicated (15) Hypertension: Status: Acute Category: Medical Code(s): I10 - Essential (primary) hypertension (16) Diabetes mellitus: Status: Acute Category: Medical Code(s): E11.9 - Type 2 diabetes mellitus without complications Plan 64-year-old male with recent diagnosis of metastatic cancer of unknown primary, presents to the ED with GI bleed/bright red blood per rectum. Discussed case with ER physician, request admission for further management of his shock state and suspected GI bleed. I agreed to admit for further care. GI consulted, appreciate their assistance. Downgrade to stepdown level of care. Stool panel returned positive for C. difficile, blood culture positive for E. coli. Continues to require inpatient management. Problems addressed as follows: C. difficile colitis E. coli bacteremia Acute blood loss anemia Diarrhea - Continues to have bloody stools, hemoglobin 10.9 today. Will hold on further transfusion. Transfusion threshold of hemoglobin less than 7. - Discontinue pantoprazole due to positive C. difficile panel. Low concern for upper GI bleed -Continue vancomycin 125 mg 4 times a day p.o. - Blood culture positive for Enterobacter/E. coli on PCR. Awaiting speciation and sensitivity. Continue broad-spectrum IV antibiotics with IV vancomycin and Zosyn. - Discussed case with GI today, holding on any type of intervention or scope. Bleeding likely from colitis from C. difficile. Recommending high-protein diet. - CBC, CMP, magnesium ordered for the morning. Shock: Hypovolemic versus septic - Pro-Martín elevated at 34.5, white count improved today at 8.2. Found to be bacteremic with E. coli positive for C. difficile as above - Repeat procalcitonin ordered for the morning -Continue antibiotics as above -Systolic blood pressures remain above 100. Metastatic cancer of unknown primary, suspected lung versus colon - Patient taken for IR guided biopsy of liver lesion today. Pathology pending. Further management pending results. -CEA elevated at 746, CA 19-9 elevated at 1389, these have both increased in the past month -Will need follow-up with oncology, referred to Dr. Lutz for further assistance Diabetes: A1c elevated 8.4 earlier this month, continue sliding scale insulin and fingersticks ACHS. Holding oral diabetes medications in the setting of shock/diarrhea Hypertension: Holding blood pressure meds in setting date/shock, reevaluate initiation tomorrow Tobacco use disorder: Nicotine patch as needed Full code Diabetic diet Sister is surrogate decision-maker/POA
[2024-08-05 20:10] LABS: POC Glucose,Bedside 255 (70-110)
[2024-08-05 22:03] LABS: Vancomycin,Trough 14.6 ug/mL (5.0-10.0)
[2024-08-06] VITALS (8 sets, daily range): BP systolic 112–146; BP diastolic 62–79; PULSE 70–92; RESP 15–24; TEMP 36.4–37; O2SAT 91–96; BMI 28.4
[2024-08-06] MEDS: OCTREOTIDE ACETATE 500 MCG in 0.9 % SODIUM CHLORIDE 250 ML 25.5 MCG IV (01:43)
[2024-08-06 03:12] LABS: Vancomycin,Peak 23.7 ug/ml (11-39)
[2024-08-06] MEDS: PIPERACILLIN/TAZO 4.5 GM in 0.9 % SODIUM CHLORIDE 100 ML IV ×4 (05:30→21:30)
[2024-08-06] MEDS: humaLOG 100 UNITS/ML 10ML VIAL (SSI) SUBCUT ×4 (06:03→21:25)
[2024-08-06 06:18] LABS: POC Glucose,Bedside 268 (70-110)
[2024-08-06 06:30] LABS: Basophils % 0.1 % (0.1-2.0); Hematocrit 31.6 % (42.0-52.0); Lymphocytes # 0.2 K/mm3 (0.7-4.5); Lymphocytes % 2.4 % (10-50); Mean Corpuscular HGB Conc 34.8 g/dL (31.8-35.4); Mean Corpuscular Volume 91.9 fl (80-94); Mean Platelet Volume 10.1 fl (7.4-10.4); Monocytes # 0.3 K/mm3 (0.1-1.0); Neutrophils # 8.8 K/mm3 (1.8-7.8); Neutrophils % 93.8 % (37.0-80.0); Nucleated Red Blood Cells # 0 10^3/uL; Nucleated Red Blood Cells % 0 %; Platelet Count 97 K/mm3 (142-424); Red Blood Count 3.44 M/mm3 (4.60-6.20); Red Cell Distribution Width 15.5 % (11.5-17.5); Red Cell Distribution Width-SD 51.5 fL; White Blood Count 9.4 K/mm3 (4.8-10.8)
[2024-08-06 06:32] LABS: MANUAL DIFFERENTIAL MANUAL DIFFERENTIAL (MANUAL DIFF)
[2024-08-06 06:42] LABS: Alanine Aminotransferase 207 U/L (12-78); Albumin Level 2.3 g/dl (3.5-5.0); Albumin/Globulin Ratio 1.2 (1.1-1.8); Alkaline Phosphatase 278 U/L (38-126); Anion Gap 4.3 mEq/L (5-15); Aspartate Amino Transferase 130 U/L (17-59); Bilirubin,Total 2.4 mg/dl (0.2-1.3); Blood Urea Nitrogen 17 mg/dl (9-20); Calcium 6.3 mg/dl (8.4-10.2); Carbon Dioxide 31 mmol/L (22.0-30.0); Chloride 105 mmol/L (98-107); Creatinine Clearance Estimated 105 mL/min (50-200); Estimated Glomerular Filt Rate 85 ml/min (>60); GFR (African American) 102 ML/MIN (>60); Glucose 244 mg/dl (74-100); Magnesium 1.8 mg/dl (1.6-2.3); Sodium 138 mmol/L (136-145); Total Protein,Serum 4.3 g/dl (6.3-8.2)
[2024-08-06 06:55] LABS: Potassium 2.3 mmoL/L (3.5-5.1)
[2024-08-06 07:00] LABS: Procalcitonin 16.7 ng/mL (0.0-2.0)
[2024-08-06 08:21] LABS: Lymphocytes % 4 % (10-50); Monocytes % 1 % (2-9); Neutrophils % 95 % (42-76); Platelet Estimate Moderate Decrease; RBC Morphology Normal; Total Cells Counted 100
--- NOTE | 2024-08-06 08:25 | P.CONPHA_ITS ---
Pharmacy Consult Date: 08/06/24 Time: 08:25 Referring provider: DR. FIERRO Reason for Consult:: VANCOMYCIN LEVELS Allergies Allergy/AdvReac Type Severity Reaction Status Date / Time No Known Allergies Allergy Verified 07/17/24 14:57 Home Medications ?Medication ?Instructions ?Recorded ?Confirmed ?Type blood-glucose sensor (Dexcom G7 #3 ea 06/23/24 08/04/24 Rx Sensor device) blood-glucose,preservative filler machine operator,cont #1 ea 06/23/24 08/04/24 Rx (Dexcom G7 Pelletizer Operator) blood sugar diagnostic (Accu-Chek #100 ea 06/30/24 08/04/24 Rx Guide test strips) blood-glucose meter (Accu-Chek #1 ea 06/30/24 08/04/24 Rx Guide Glucose Meter) lancets (Accu-Chek Softclix #100 ea 06/30/24 08/04/24 Rx Lancets) calcium polycarbophil 625 mg tablet 1,250 mg (2 x 625 mg) PO BID 30 07/11/24 08/04/24 Rx days #120 tabs insulin glargine 100 unit/mL (3 10 unit (0.1 mL) SQ DAILY 30 days 07/11/24 08/04/24 Rx mL) subcutaneous pen (Lantus #15 mL Solostar U-100 Insulin) pen needle, diabetic 31 gauge x #100 ea 07/11/24 08/04/24 Rx 3/16 (Pen Needle) sodium di- and 1 tab PO Q6 10 days #40 tabs 07/11/24 08/04/24 Rx monophosphate-potassium phos monobasic 250 mg tablet (Phospha Neutral) nicotine (polacrilex) 2 mg buccal 2 mg buccal Q4HP PRN nicotine 07/15/24 08/04/24 History lozenge (Nicorette) cravings spironolactone 50 mg tablet 50 mg PO DAILY #30 tabs 07/23/24 08/04/24 Rx potassium chloride 20 mEq 40 meq (2 x 20 mEq) PO TID 10 days 07/27/24 08/04/24 Rx tablet,extended #60 tabs release(part/cryst) (Klor-Con M) albuterol sulfate 90 mcg/actuation 2 inh inhalation QIDP PRN 08/04/24 08/04/24 History aerosol inhaler shortness of breath or wheezing colestipol 1 gram tablet (Colestid) 2 g PO HS 08/04/24 08/04/24 History metformin 1,000 mg tablet 1,000 mg PO BID 08/04/24 08/04/24 History New Prescriptions to Start Prescriptions: Height: 1.88 m Weight: 100.561 kg Laboratory Results:: Laboratory Results - last 24 hr 08/05/24 11:11: POC Glucose 299 H 08/05/24 16:22: POC Glucose 298 H 08/05/24 19:57: POC Glucose 255 H 08/05/24 21:36: Vancomycin Trough 14.6 H 08/06/24 02:37: Vancomycin Peak 23.7 08/06/24 05:30: POC Glucose 268 H 08/06/24 06:20: WBC 9.4, RBC 3.44 L, Hgb 11.0 L, Hct 31.6 L, MCV 91.9, MCH 32.0 H, MCHC 34.8, RDW 15.5, Plt Count 97 L, MPV 10.1, Neut % (Auto) 93.8 H, Lymph % (Auto) 2.4 L, Pender % (Auto) 3.0, Eos % (Auto) 0.0 L, Baso % (Auto) 0.1, Neut # (Auto) 8.8 H, Lymph # (Auto) 0.2 L, Pender # (Auto) 0.3, Eos # (Auto) 0.0, Baso # (Auto) 0.0, Total Counted 100, Neutrophils % (Manual) 95 H, Lymphocytes % (Manual) 4 L, Monocytes % (Manual) 1 L, Platelet Estimate Moderate decrease, RBC Morphology Normal, Sodium 138, Potassium 2.3 L* D, Chloride 105, Carbon Dioxide 31 H, Anion Gap 4.3 L, BUN 17 D, Creatinine 0.90 D, Estimated Creat Clear 105, Estimated GFR 85, Est GFR ( Amer) 102 D, Glucose 244 H, Calcium 6.3 L, Magnesium 1.8, Total Bilirubin 2.4 H, AST 130 H D, ALT 207 H, Alkaline Phosphatase 278 H, Total Protein 4.3 L, Albumin 2.3 L, Globulin 2.0, Albumin/Globulin Ratio 1.2, Procalcitonin 16.7 H Medical History: Medical History (Updated 08/05/24 @ 18:34 by Ran Fierro MD) Nodule of right lung Mass of kidney Elevated liver enzymes Hilar lymphadenopathy Smoking greater than 30 pack years Lung nodule Hypokalemia Diarrhea Pedal edema Cigarette smoker Hypertension Onychomycosis Diabetes mellitus (~07/06/24) Assessment and Plan Assessment and plan all Dx Assessment and Plan for all problems:: PATIENT'S VANCOMYCIN PEAK AND TROUGH LEVELS WERE 23.7 MCG/ML AND 14.6 MCG/ML, RESPECTIVELY. RECOMMEND CONTINUING WITH CURRENT DOSE AND INTERVAL OF VANCOMYCIN 1500 MG Q12H AT THIS TIME.
[2024-08-06] MEDS: CALCIUM GLUC IN NACL, ISO-OSM 2 GM/100 ML BAG IV (08:55)
[2024-08-06] MEDS: VANCOMYCIN HCL 50MG/ML 150ML KIT 125 MG PO ×4 (08:55→20:15)
[2024-08-06] MEDS: BUMETANIDE 1MG/4ML VIAL 1 MG IV (08:55)
[2024-08-06] MEDS: SPIRONOLACTONE 25MG TABLET 50 MG PO (08:58)
--- NOTE | 2024-08-06 09:49 | HMH.OTEV ---
OT Inpatient Evaluation Rehab OT IP Evaluation Start: 08/04/24 10:38 Freq: ONCE Status: Active Protocol: Document 08/06/24 09:42 SAVANNAH (Rec: 08/06/24 09:48 [facility] [id number]) Rehab OT IP Assessment Subjective History Pt oriented x 3 on arrival. Pt agreeable to engage in therapy evaluation. Pt's present and supportive. Pt admitted on 08/04/24 due to GI bleed. History and physical: Mr. Wolfe is a 64-year-old male who presented earlier this month and was found to have new diagnosis of metastatic cancer of unknown primary. Suspicious for GI source given elevated CEA and CA 19-9. He has been undergoing outpatient workup but has been having continued weight loss, weight is down about 10 kg in the past month. He missed a PET scan earlier this week due to glucose abnormalities. He presented today to the ER because of bright red blood per rectum. States he has had diarrhea ever since starting metformin a few months ago. Stool panel at the beginning of the month was negative for C. difficile or analytes. Has continued to have worsening diarrhea however and underwent colonoscopy within the past month that showed a few polyps and hemorrhoids but no significant other findings. EGD did show some varices. States that for the past 48 hours she has been having bloody bowel movements, large bowel movement today that overflowed his depends. Continue to have abnormal weight loss. Continues have elevated liver chemistries. CAT scan obtained today of his abdomen showing diffuse colitis. Stable on room air. Of note, found to be hypotensive as well. Denies any fever. States he feels poorly. Sister and son at bedside assisting with care. In the ER, found to be anemic. Hemoglobin 2 weeks ago of 14 , 12 on arrival to the ED. Transfusion initiated and received 2 units of packed red blood cells and 1 L of IV fluids. Initiated on broad- spectrum antibiotics due to his hypotensive state concerning for shock secondary to hypovolemia versus sepsis. Medicine consulted for admission and further management Subjective Pt presents supine in bed with family member in the room. He was willing to participate in evaluation this am. Pt reports prior to being in the hospital he lived at home with his . and patient report since May, his functional ability and ADL independence has declined significantly. He now requires assistance with all ADLs and functional transfers. Objective Patient Orientation Person,Place,Birthday Right Upper Extremity Gross ROM Min Limitation <25% Left Upper Extremity Gross ROM Min Limitation <25% Shoulder ROM Limitations Muscle Weakness Elbow ROM Limitations Muscle Weakness Wrist Limitations of Range of Motion Muscle Weakness Bed Mobility bed mobility - rolling Assist Level Moderate x 2 (50% assist) Lower Body Dressing Ability Maximum Assistance Performing Toilet Hygiene Ability Unable/dependent Rehab OT IP prob,goals,plan Problems Date of Evaluation: 08/06/24 OT IP Problems Bed Mobility,Transfers,Balance ,Self care,Safety Rehab Potential Rehab Potential Good Equipment Needs Assistive Devices Rolling / Wheeled Walker Plan OT intervention Plan Bed Mobility,Transfers,Balance ,Self care,Safety,Therapeutic Exercise OT Plan Frequency Daily Duration LOS Discharge Goals Chair Transfer Technique Sit to/from Ambulatory Chair Transfer Assistive Devices Rolling Walker Lower Body Dressing Ability Moderate Assistance Upper Body Dressing Ability Minimal Assistance Bathing Ability Moderate Assistance Performing Toilet Hygiene Ability Moderate Assistance Overall Commode/Toilet Transfer Ability Moderate Assistance Commode/Toilet Transfer Technique Sit to/from Ambulatory Discharge Plan OT Discharge Plan At this time, pt is most appropriate for short term rehab at SNF following discharge from hospital. Continued skilled therapy is important in order for patient to improve strength, safety, endurance, ADL independence, and functional transfers to reach PLOF. Eval Complexity Eval Charge Codes 07571 - Moderate Complexity PHYSICIAN CERTIFICATION: I certify the specified therapy services for Bolivar Wolfe are required, authorized, and reviewed every 30 days.
[2024-08-06] MEDS: VANCOMYCIN/WATER FOR INJ (PEG) 1.5 GM/300 ML PIGGYBACK IV ×2 (10:38→22:15)
--- NOTE | 2024-08-06 11:06 | P.PN_ITS ---
Subjective *Date: 08/06/24 *Time: 16:01 Interval history: Still feels quite weak. Denies any fever. No nausea or vomiting. Bowel movements slowing down. On room air this morning on rounds. -1 L in the past 24 hours. Still appears volume overloaded, will give Bumex again today. White count normal. Pro-Martín improving. Poor p.o. intake. Sister at bedside Medical Exam Vital signs and Labs for Last 24 Hours: Vital Signs Temp Pulse Pulse Resp BP Pulse Ox O2 Del Method 08/06/24 09:00 Room Air 08/06/24 08:00 91 L Room Air 08/06/24 08:00 70 08/06/24 08:00 97.7 F 78 20 146/73 H 92 L Room Air 08/06/24 06:25 Room Air 08/06/24 06:00 98.6 F 78 24 140/72 92 L Room Air 08/06/24 05:00 Room Air 08/06/24 04:00 Room Air 08/06/24 04:00 70 08/06/24 04:00 74 19 136/71 92 L Room Air 08/06/24 03:00 Room Air 08/06/24 02:00 70 23 138/79 94 L Room Air 08/06/24 01:00 Room Air 08/06/24 00:00 80 08/06/24 00:00 98.6 F 75 15 126/67 96 Room Air 08/05/24 23:00 Room Air 08/05/24 22:00 62 18 140/91 H 92 L Room Air 08/05/24 21:00 Room Air 08/05/24 20:00 Room Air 08/05/24 20:00 80 08/05/24 20:00 97.7 F 89 24 126/73 93 L Room Air 08/05/24 18:46 Room Air 08/05/24 18:00 79 20 154/75 H 93 L Room Air 08/05/24 17:00 Room Air 08/05/24 17:00 65 16 126/71 92 L Room Air 08/05/24 16:00 70 08/05/24 15:00 Room Air 08/05/24 14:00 75 16 135/65 92 L Room Air 08/05/24 14:00 70 92 L Room Air 08/05/24 13:00 Room Air 08/05/24 12:00 90 17 149/66 H 94 L Room Air 08/05/24 12:00 100 H 08/05/24 11:15 103 H 19 124/66 93 L Room Air Intake and Output 08/05/24 08/06/24 08/06/24 23:59 07:59 15:59 Intake Total 810 / 1050 1026 / 1266 240 / 1266 Output Total 1100 / 3200 2100 / 2750 650 / 2750 Balance -290 / -2150 -1074 / -1484 -410 / -1484 Intake: Intake, Oral Amount 120 / 360 240 / 480 240 / 480 Intake, Total IV Amount 690 / 690 786 / 786 Octreotide Acetate 500 mcg In 0 190 / 190 286 / 286 .9 % Sodium Chloride 250 ml @ 50 MCG/HR 25.5 mls/hr IV .Q10H [facility] Rx#:[id number] Piperacillin/Tazo 4.5 gm In 0.9 200 / 200 200 / 200 % Sodium Chloride 100 ml @ 200 mls/hr IV Q6H [facility] Rx#:[id number] Vancomycin/Water For Inj (Peg) 300 / 300 300 / 300 1.5 gm In 300 ml @ 150 mls/hr IV Q12H [facility] Rx#:[id number] Output: Output, Urine Amount 1100 / 3200 2100 / 2350 250 / 2350 Output, Stool Amount 400 / 400 Other: Number of Unmeasured Voids 0 0 0 Number of Bowel Movements 1 1 2 Weight 100.561 kg 100.561 kg Patient Weight 08/06/24 23:59 Weight 100.561 kg Laboratory Results - last 24 hr 08/05/24 11:11: POC Glucose 299 H 08/05/24 16:22: POC Glucose 298 H 08/05/24 19:57: POC Glucose 255 H 08/05/24 21:36: Vancomycin Trough 14.6 H 08/06/24 02:37: Vancomycin Peak 23.7 08/06/24 05:30: POC Glucose 268 H 08/06/24 06:20: WBC 9.4, RBC 3.44 L, Hgb 11.0 L, Hct 31.6 L, MCV 91.9, MCH 32.0 H, MCHC 34.8, RDW 15.5, Plt Count 97 L, MPV 10.1, Neut % (Auto) 93.8 H, Lymph % (Auto) 2.4 L, [place] % (Auto) 3.0, Eos % (Auto) 0.0 L, Baso % (Auto) 0.1, Neut # (Auto) 8.8 H, Lymph # (Auto) 0.2 L, [place] # (Auto) 0.3, Eos # (Auto) 0.0, Baso # (Auto) 0.0, Total Counted 100, Neutrophils % (Manual) 95 H, Lymphocytes % (Manual) 4 L, Monocytes % (Manual) 1 L, Platelet Estimate Moderate decrease, RBC Morphology Normal, Sodium 138, Potassium 2.3 L* D, Chloride 105, Carbon Dioxide 31 H, Anion Gap 4.3 L, BUN 17 D, Creatinine 0.90 D, Estimated Creat Clear 105, Estimated GFR 85, Est GFR ( Amer) 102 D, Glucose 244 H, Calcium 6.3 L, Magnesium 1.8, Total Bilirubin 2.4 H, AST 130 H D, ALT 207 H, Alkaline Ph osphatase 278 H, Total Protein 4.3 L, Albumin 2.3 L, Globulin 2.0, Albumin/Globulin Ratio 1.2, Procalcitonin 16.7 H I & O for Labs for Last 24 Hours: Intake & Output 08/03/24 08/04/24 08/05/24 08/06/24 23:59 23:59 23:59 23:59 Intake Total 1205 / 1205 1050 / 1050 1266 / 1266 Output Total 825 / 825 2200 / 3200 2750 / 2750 Balance 380 / 380 -1150 / -2150 -1484 / -1484 Weight 100.924 kg 102.376 kg 100.561 kg Microbiology Reports for the Last 24 Hours: Microbiology 08/04/24 08:55 Blood Blood Culture - Preliminary NO GROWTH AFTER 48 HOURS 08/04/24 08:57 Blood Blood Culture - Preliminary Gram Negative Rods 08/05/24 10:15 Sputum - Expectorated Sputum Gram Stain - Final 08/04/24 10:40 Anus CRE Surveillance Culture - Final Constitutional: Present mild distress, chronically ill appearing and cooperative Head: Present atraumatic and normocephalic ENT: Present normal exam Respiratory: Present normal respiratory effort; Absent rhonchi, wheezes or crackles Cardiac: Present Reg Rate and Rhythm GI: Present soft, tenderness (Nonfocal) and normal bowel sounds; Absent distention Extremities: Present normal inspection, full ROM and edema (3+ to knees, 2+ in all) Skin: Present intact and pallor; Absent erythema Neuro: Present Grossly Intact, alert, awake, oriented x 3 and moves all extremities Assessment and Plan *Assessment and plan (1) C. difficile colitis: Status: Acute Category: Medical Code(s): A04.72 - Enterocolitis due to Clostridium difficile, not specified as recurrent (2) Metastatic cancer: Status: Acute Category: Medical Code(s): C79.9 - Secondary malignant neoplasm of unspecified site (3) Rectal bleeding: Status: Acute Category: Medical Code(s): K62.5 - Hemorrhage of anus and rectum (4) Elevated liver enzymes: Status: Acute Category: Medical Code(s): R74.8 - Abnormal levels of other serum enzymes (5) Lung mass: Status: Acute Category: Medical Code(s): R91.8 - Other nonspecific abnormal finding of lung field (6) Diarrhea: Status: Acute Category: Medical Code(s): R19.7 - Diarrhea, unspecified (7) Lower extremity edema: Status: Acute Category: Medical Code(s): R60.0 - Localized edema (8) Fecal urgency: Status: Acute Category: Medical Code(s): R15.2 - Fecal urgency (9) Protein-losing enteropathy: Status: Acute Category: Medical Code(s): K90.49 - Malabsorption due to intolerance, not elsewhere classified (10) E coli bacteremia: Status: Acute Category: Medical Code(s): R78.81 - Bacteremia; B96.20 - Unspecified Escherichia coli [E. coli] as the cause of diseases classified elsewhere (11) Pneumonia: Status: Acute Category: Medical Code(s): J18.9 - Pneumonia, unspecified organism (12) Shock: Status: Acute Category: Medical Code(s): R57.9 - Shock, unspecified (13) Acute GI bleeding: Status: Acute Category: Medical Code(s): K92.2 - Gastrointestinal hemorrhage, unspecified (14) Unintentional weight loss: Status: Acute Category: Medical Code(s): R63.4 - Abnormal weight loss (15) Metastasis to liver: Status: Acute Category: Medical Code(s): C78.7 - Secondary malignant neoplasm of liver and intrahepatic bile duct (16) Mass of kidney: Status: Inactive Category: Medical Code(s): N28.89 - Other specified disorders of kidney and ureter (17) Smoking greater than 30 pack years: Status: Acute Category: Social Hx Code(s): F17.210 - Nicotine dependence, cigarettes, uncomplicated (18) Transaminitis: Status: Acute Category: Medical Code(s): R74.01 - Elevation of levels of liver transaminase levels (19) Cigarette smoker: Problem Comment: current, 2024, greater than 40 pack year history Status: Acute Category: Social Hx Code(s): F17.210 - Nicotine dependence, cigarettes, uncomplicated (20) Hypertension: Status: Acute Category: Medical Code(s): I10 - Essential (primary) hypertension (21) Diabetes mellitus: Status: Acute Category: Medical Code(s): E11.9 - Type 2 diabetes mellitus without complications Plan 64-year-old male with recent diagnosis of metastatic cancer of unknown primary, presents to the ED with GI bleed/bright red blood per rectum. Discussed case with ER physician, request admission for further management of his shock state and suspected GI bleed. I agreed to admit for further care. GI consulted, appreciate their assistance. Downgrade to stepdown level of care. Stool panel returned positive for C. difficile, blood culture positive for E. coli. Continues to require inpatient management. Problems addressed as follows: C. difficile colitis E. coli bacteremia Acute blood loss anemia Diarrhea - Continues to have bloody stools, slowing and frequency, hemoglobin 11. Transfusion threshold of hemoglobin less than 7. - Discontinue pantoprazole and octreotide due to positive C. difficile panel. Low concern for upper GI bleed -Continue vancomycin 125 mg 4 times a day p.o. - Blood culture positive for Enterobacter/E. coli on PCR. Awaiting speciation and sensitivity. Continue broad-spectrum IV antibiotics with IV vancomycin and Zosyn. - Discussed case with GI today, holding on any type of intervention or scope. Bleeding likely from colitis from C. difficile. Recommending high-protein diet. - CBC, CMP, magnesium ordered for the morning. Shock: Hypovolemic versus septic - Pro-Martín remains elevated but improving from 34.5-16.7. White count 9.4. - Found to be bacteremic with E. coli positive for C. difficile as above - Repeat procalcitonin ordered for the morning -Continue antibiotics as above -Systolic blood pressures remain above 100. Metastatic cancer of unknown primary, suspected lung versus colon - Patient taken for IR guided biopsy of liver lesion 08/05/24. Pathology pending. Further management pending results. -CEA elevated at 746, CA 19-9 elevated at 1389, these have both increased in the past month -Will need follow-up with oncology, referred to Dr. Lutz for further assistance Diabetes: Morning glucose 244, A1c elevated 8.4 earlier this month, continue sliding scale insulin and fingersticks ACHS. Holding oral diabetes medications in the setting of shock/diarrhea Hypertension: Resume Bumex 1 mg IV this morning due to edema and hypertension. Reevaluate initiation of home regimen in the morning Tobacco use disorder: Nicotine patch as needed Evaluated by therapy, recommend skilled placement for rehab. Family would like to consider [facility]. Case management placing referral today. Full code Diabetic diet Sister is surrogate decision-maker/POA
--- NOTE | 2024-08-06 11:07 | SW/DCPLANNER ---
Addendum entered by Dhara Clemente 08/10/24 10:53: Per Amelia patient can admit today SNF level of care. MD will discharge patient today and sister plans to transport. Addendum entered by Dhara Clemente 08/07/24 15:02: Per MD patient is not medically stable for discharge today due to potassium. Amelia w/ [facility] stated that patient can not admit tomorrow but can admit on Saturday. I have relayed information to Dr English and nursing staff. Addendum entered by Dolores Mendoza 08/07/24 08:12: [facility] is able to accept patient. Dell Etienne Original Note: Dhara the social media designer spoke with the patient and he prefers [facility]. I sent the patients info to [facility] and will update once i hear back from them. Dell Etienne
[2024-08-06 11:25] LABS: POC Glucose,Bedside 235 (70-110)
--- NOTE | 2024-08-06 13:47 | P.PN_ITS ---
Subjective *Date: 08/06/24 *Time: 13:47 Interval history: Patient sleeping but easily arousable. Still with diarrhea but decreased output, no obvious blood in stool today. Sister at bedside. On IV Bumex and p.o. spironolactone. Has had an interval improvement of edema in hands, minimal obvious improvement in edema in bilateral lower extremities but slightly less uncomfortable today. Good urine output. Patient has had decreased appetite and decreased p.o. intake. Has had minimal ability to follow through with physical therapy and occupational therapy. Awaiting liver biopsy results. Patient reports if he is a candidate for chemo or radiation or other cancer treatments he wants to do it. Sister reports that she understands the patient has to be strong enough to undergo cancer treatment. Exam Data for Last 24 hours Vital signs and Labs for Last 24 Hours: Temp Pulse Resp BP Pulse Ox O2 Del Method O2 Flow Rate 97.8 F 75 20 124/67 93 L Room Air 2 08/06/24 12:00 08/06/24 12:00 08/06/24 12:00 08/06/24 12:00 08/06/24 12:00 08/06/24 12:00 08/04/24 16:00 Laboratory Results - last 24 hr 08/05/24 16:22: POC Glucose 298 H 08/05/24 19:57: POC Glucose 255 H 08/05/24 21:36: Vancomycin Trough 14.6 H 08/06/24 02:37: Vancomycin Peak 23.7 08/06/24 05:30: POC Glucose 268 H 08/06/24 06:20: WBC 9.4, RBC 3.44 L, Hgb 11.0 L, Hct 31.6 L, MCV 91.9, MCH 32.0 H, MCHC 34.8, RDW 15.5, Plt Count 97 L, MPV 10.1, Neut % (Auto) 93.8 H, Lymph % (Auto) 2.4 L, [place] % (Auto) 3.0, Eos % (Auto) 0.0 L, Baso % (Auto) 0.1, Neut # (Auto) 8.8 H, Lymph # (Auto) 0.2 L, [place] # (Auto) 0.3, Eos # (Auto) 0.0, Baso # (Auto) 0.0, Total Counted 100, Neutrophils % (Manual) 95 H, Lymphocytes % (Manual) 4 L, Monocytes % (Manual) 1 L, Platelet Estimate Moderate decrease, RBC Morphology Normal, Sodium 138, Potassium 2.3 L* D, Chloride 105, Carbon Dioxide 31 H, Anion Gap 4.3 L, BUN 17 D, Creatinine 0.90 D, Estimated Creat Clear 105, Estimated GFR 85, Est GFR ( Amer) 102 D, Glucose 244 H, Calcium 6.3 L, Magnesium 1.8, Total Bilirubin 2.4 H, AST 130 H D, ALT 207 H, Alkaline Phosphatase 278 H, Total Protein 4.3 L, Albumin 2.3 L, Globulin 2.0, Albumin/Globulin Ratio 1.2, Procalcitonin 16.7 H 08/06/24 11:16: POC Glucose 235 H I & O for Last 24 hours: Intake & Output 08/04/24 08/05/24 08/06/24 08/07/24 11:59 11:59 11:59 11:59 Intake Total 100 1105 2316 240 Output Total 1925 4700 550 Balance 100 -820 -2384 -310 Weight 100.924 kg 102.376 kg 100.561 kg Microbiology Reports for the Last 24 Hours: Microbiology 08/04/24 08:55 Blood Blood Culture - Preliminary NO GROWTH AFTER 48 HOURS 08/04/24 08:57 Blood Blood Culture - Preliminary Gram Negative Rods 08/05/24 10:15 Sputum - Expectorated Sputum Gram Stain - Final Constitutional Constitutional: chronically ill appearing and cooperative *Routine HEENT Exam Head: Present normocephalic and atraumatic *Routine Respiratory Exam Respiratory: Present decreased breath sounds (Bilateral lower lobes, CTA upper lobes) *Routine Cardiovascular Exam Cardiovascular: Present RRR *Routine Abdominal Exam Abdominal: Present soft; Absent tenderness *Routine Extremities Exam Extremities: Present edema (Bilateral lower extremity edema 4++, improved bilateral edema in hands) *Routine Neurological Exam Neurological: Present alert, oriented X3 and moving all extremities Assessment and Plan *Assessment and plan (1) C. difficile colitis: Status: Acute Category: Medical Code(s): A04.72 - Enterocolitis due to Clostridium difficile, not specified as recurrent (2) Metastatic cancer: Status: Acute Category: Medical Code(s): C79.9 - Secondary malignant neoplasm of unspecified site (3) Rectal bleeding: Status: Acute Category: Medical Code(s): K62.5 - Hemorrhage of anus and rectum (4) Elevated liver enzymes: Status: Acute Category: Medical Code(s): R74.8 - Abnormal levels of other serum enzymes (5) Lung mass: Status: Acute Category: Medical Code(s): R91.8 - Other nonspecific abnormal finding of lung field (6) Diarrhea: Status: Acute Category: Medical Code(s): R19.7 - Diarrhea, unspecified (7) Lower extremity edema: Status: Acute Category: Medical Code(s): R60.0 - Localized edema (8) Fecal urgency: Status: Acute Category: Medical Code(s): R15.2 - Fecal urgency (9) Protein-losing enteropathy: Status: Acute Category: Medical Code(s): K90.49 - Malabsorption due to intolerance, not elsewhere classified Plan 1. GI bleed/colitis/C. difficile/diarrhea Patient is status post recent colonoscopy with hemorrhoidal banding. It is more likely the C. difficile has contributed to the recent onset of rectal bleeding related to the colitis. Per nursing volume and frequency of stool have improved today. Blood noted in the stool yesterday but no obvious blood in stool today. Expect continued improved symptoms with PO vancomycin. I do not expect complete resolution of diarrhea with likely protein-losing enteropathy underlying. 2. Peripheral edema Bilateral LE edema symptoms minimally improved with IV Bumex and p.o. spironolactone. Bilateral hand edema has improved since yesterday. Concerning for protein-losing enteropathy (albumin low at 2.3, total protein low at 4.3) given hepatic tumor burden versus portal hypertension symptoms related to tumor burden. Patient has had decreased p.o. intake, his sister reports even prior to hospitalization. We discussed the importance of maintaining nutritional status, especially high-protein intake. 3. Metastatic lung cancer/liver metastasis The patient underwent CT guided liver biopsy yesterday. Awaiting pathology report. Patient reports that if the cancer can be treated he wants to do whenever possible. Sister reports that she understands that he has to be physically strong enough to tolerate cancer treatment. Patient has not been eating much, has been unable to work with physical therapy occupational therapy. I discussed the importance of eating the high-protein diet and improving his physical strength. We briefly discussed the possibility of hospice but they would like to wait on results of biopsy to see what his options are.
[2024-08-06] MEDS: KCl 10mEq/100ml 100 ML 100 MEQ IV ×8 (15:46→23:15)
[2024-08-06 16:36] LABS: POC Glucose,Bedside 224 (70-110)
--- NOTE | 2024-08-06 18:29 | PC.NURSE ---
No acute changes. Pt requires frequent brief changes d/t incontinence of liquid stool. Stage II w/ dressing has been changed multiple times throughout shift as well as barrier cream applied. Repositioning Q2H. Sister has been at bedside majority of shift assisting w/ needs. Voiced concern that pt has not been able to rest while being in the hospital d/t having a lot on his mind . Provider was notified of this and trazadone has been added to PM meds. Appetite remains poor, supplements offered throughout shift. Currently resting in bed w/ eyes closed. No needs voiced @ this time. Call rosa w/in reach. POC ongoing.
[2024-08-06] MEDS: TRAZODONE 50MG TABLET 50 MG PO (20:15)
[2024-08-06] MEDS: INSULIN GLARGINE 100 UNITS/ML 3ML FLEXPEN 15 UNIT SUBCUT (21:25)
[2024-08-06 21:26] LABS: POC Glucose,Bedside 223 (70-110)
[2024-08-07] VITALS (8 sets, daily range): BP systolic 99–127; BP diastolic 53–76; PULSE 74–99; RESP 16–20; TEMP 36.2–37; O2SAT 91–95; BMI 29.1
--- NOTE | 2024-08-07 04:25 | PC.NURSE ---
Addendum entered by Toshia Chapman RN 08/07/24 05:38: Bright blood observed in stool. Dressings and brief changed. Addendum entered by Toshia Chapman RN 08/07/24 05:28: Patient reported having a bowel movement this morning. Original Note: Patient is pleasantly alert and oriented. Depressive affect noted. He was observed to have wakeful periods and resting periods (eyes closed, respirations even/unlabored on room air) with no apparent distress throughout the night. Patient has had a poor appetite, but he has been drinking fluids very well. Potassium infusions, diluted appropriately with normal saline, were completed during this shift for the electrolyte's replacement. Other scheduled medications were administered per JUN as well. Patient reports having a soft, nonproductive cough. Edema documented accordingly (see 08/06/24 nursing biophysicals) for each extremity (upper/lower). A male purewick remains in place for urination needs. Frequent bowel movements started to decrease during the previous shift (no bowel movement noted this shift, thus far). Upon auscultation of his lungs, clear sounds were heard throughout with diminished air movement in the bases. Heart and bowel sounds within normal findings. Vital signs stable. Patient requires moderate assistance during ambulation/transfers due to progressed weakness. Excoriation/pressure areas noted to buttocks/coccyx with dressing. Ulceration noted to his left heel. ACHS glucose checks performed. At this time, the patient is resting in bed without any further complaints. No new needs at this time. Call light within reach. Electrolyte replacement protocol as directed. Contact/enteric precautions in place for C. diff infection.
[2024-08-07] MEDS: PIPERACILLIN/TAZO 4.5 GM in 0.9 % SODIUM CHLORIDE 100 ML IV (05:20)
[2024-08-07 05:54] LABS: POC Glucose,Bedside 212 (70-110)
[2024-08-07] MEDS: humaLOG 100 UNITS/ML 10ML VIAL (SSI) SUBCUT ×4 (05:57→20:45)
--- NOTE | 2024-08-07 08:58 | EXP.PHA.PN ---
Subjective *Date: 08/07/24 *Time: 08:58 Medical Exam Vital signs and Labs for Last 24 Hours: Vital Signs Temp Pulse Pulse Resp BP Pulse Ox O2 Del Method 08/07/24 08:00 97.6 F 74 17 122/53 L 91 L Room Air 08/07/24 06:50 Room Air 08/07/24 05:00 Room Air 08/07/24 04:00 89 08/07/24 04:00 97.4 F L 94 H 16 111/64 95 Room Air 08/07/24 03:00 Room Air 08/07/24 01:00 Room Air 08/07/24 00:00 88 08/07/24 00:00 98.6 F 82 20 124/61 95 Room Air 08/06/24 23:00 Room Air 08/06/24 21:00 Room Air 08/06/24 20:00 83 20 95 Room Air 08/06/24 20:00 92 H 08/06/24 20:00 97.5 F L 83 20 124/68 95 Room Air 08/06/24 18:30 Room Air 08/06/24 17:00 Room Air 08/06/24 16:00 90 08/06/24 16:00 97.5 F L 81 16 112/62 92 L Room Air 08/06/24 15:00 Room Air 08/06/24 13:00 Room Air 08/06/24 12:00 97.8 F 75 20 124/67 93 L Room Air 08/06/24 12:00 80 08/06/24 11:00 Room Air 08/06/24 09:00 Room Air Intake and Output 08/06/24 08/07/24 08/07/24 23:59 07:59 15:59 Intake Total 1205 / 4061 1350 / 1350 Output Total 750 / 5150 500 / 500 Balance 455 / -1089 850 / 850 Intake: Intake, Oral Amount 240 / 1310 350 / 350 Intake, Other Amount 200 / 200 Intake, Total IV Amount 965 / 1751 Calcium Gluc in NaCl, Iso-Osm 2 100 / 100 gm In 100 ml @ 50 mls/hr IV ONCE ONE Rx#:[id number] KCl 10mEq/100ml 100 ml @ 100 300 / 300 mls/hr IV Q1H [facility] Rx#:[id number] Octreotide Acetate 500 mcg In 0 65 / 351 .9 % Sodium Chloride 250 ml @ 50 MCG/HR 25.5 mls/hr IV .Q10H [facility] Rx#:[id number] Piperacillin/Tazo 4.5 gm In 0.9 200 / 400 % Sodium Chloride 100 ml @ 200 mls/hr IV Q6H [facility] Rx#:[id number] Vancomycin/Water For Inj (Peg) 300 / 600 1.5 gm In 300 ml @ 150 mls/hr IV Q12H [facility] Rx#:[id number] Infusion Intake 800 / 800 KCl 10mEq/100ml 100 ml @ 100 400 / 400 mls/hr IV Q1H [facility] Rx#:[id number] Piperacillin/Tazo 4.5 gm In 0.9 100 / 100 % Sodium Chloride 100 ml @ 200 mls/hr IV Q6H [facility] Rx#:[id number] Vancomycin/Water For Inj (Peg) 300 / 300 1.5 gm In 300 ml @ 150 mls/hr IV Q12H [facility] Rx#:[id number] Output: Output, Urine Amount 450 / 4450 500 / 500 Output, Stool Amount 300 / 700 Other: Number of Unmeasured Voids 0 0 Number of Bowel Movements 1 1 Number of Unmeasured Emesis 2 Episodes Weight 103.107 kg Patient Weight 08/07/24 23:59 Weight 103.107 kg Laboratory Results - last 24 hr 08/06/24 11:16: POC Glucose 235 H 08/06/24 16:28: POC Glucose 224 H 08/06/24 20:25: POC Glucose 223 H 08/07/24 05:21: POC Glucose 212 H I & O for Labs for Last 24 Hours: Intake & Output 08/04/24 08/05/24 08/06/24 08/07/24 23:59 23:59 23:59 23:59 Intake Total 1205 / 1205 1050 / 1050 2711 / 4061 1350 / 1350 Output Total 825 / 825 2200 / 3200 4900 / 5150 500 / 500 Balance 380 / 380 -1150 / -2150 -2189 / -1089 850 / 850 Weight 100.924 kg 102.376 kg 100.561 kg 103.107 kg Microbiology Reports for the Last 24 Hours: Microbiology 08/04/24 08:57 Blood Blood Culture - Preliminary Escherichia coli 08/04/24 08:55 Blood Blood Culture - Preliminary NO GROWTH AFTER 48 HOURS The patient's infection will respond to the chosen ABx?: Yes (BLOOD CX = E COLI SENSITIVE TO ZOSYN, SPUTUM CX PENDING, AFEBRILE OVER 24HR) Is the patient receiving the right drug, dose, and route?: Yes Could a more targeted ABx be ordered?: No How long ABx needed (days)?: 7
[2024-08-07] MEDS: LEVOFLOXACIN/D5W 750 MG/150 ML 750 MG/150 ML PIGGYBACK 100 MG IV (09:08)
[2024-08-07] MEDS: BUMETANIDE 1MG/4ML VIAL 1 MG IV (09:09)
[2024-08-07] MEDS: SPIRONOLACTONE 25MG TABLET 50 MG PO (09:09)
[2024-08-07] MEDS: VANCOMYCIN HCL 50MG/ML 150ML KIT 125 MG PO ×4 (09:27→20:47)
[2024-08-07 09:35] LABS: Basophils % 0.2 % (0.1-2.0); Hematocrit 31.1 % (42.0-52.0); Hemoglobin 10.9 g/dL (14.1-18.0); Lymphocytes # 0.3 K/mm3 (0.7-4.5); Lymphocytes % 2.7 % (10-50); Mean Corpuscular Volume 91.2 fl (80-94); Mean Platelet Volume 9.7 fl (7.4-10.4); Monocytes # 0.2 K/mm3 (0.1-1.0); Monocytes % 2.3 % (1.7-9.3); Neutrophils # 9.7 K/mm3 (1.8-7.8); Neutrophils % 93.9 % (37.0-80.0); Nucleated Red Blood Cells # 0 10^3/uL; Nucleated Red Blood Cells % 0 %; Platelet Count 88 K/mm3 (142-424); Red Blood Count 3.41 M/mm3 (4.60-6.20); Red Cell Distribution Width 15.1 % (11.5-17.5); Red Cell Distribution Width-SD 49.8 fL; White Blood Count 10.3 K/mm3 (4.8-10.8)
[2024-08-07 09:37] LABS: MANUAL DIFFERENTIAL MANUAL DIFFERENTIAL (MANUAL DIFF)
[2024-08-07 09:58] LABS: Alanine Aminotransferase 170 U/L (12-78); Albumin/Globulin Ratio 0.9 (1.1-1.8); Alkaline Phosphatase 290 U/L (38-126); Anion Gap 2.5 mEq/L (5-15); Aspartate Amino Transferase 105 U/L (17-59); Bilirubin,Total 2.6 mg/dl (0.2-1.3); Blood Urea Nitrogen 18 mg/dl (9-20); Calcium 6.3 mg/dl (8.4-10.2); Carbon Dioxide 35 mmol/L (22.0-30.0); Chloride 104 mmol/L (98-107); Creatinine Clearance Estimated 107 mL/min (50-200); Estimated Glomerular Filt Rate 135 ml/min (>60); GFR (African American) 164 ML/MIN (>60); Globulin 2.3 g/dL (1.3-3.2); Glucose 151 mg/dl (74-100); Magnesium 1.7 mg/dl (1.6-2.3); Sodium 139 mmol/L (136-145); Total Protein,Serum 4.3 g/dl (6.3-8.2)
[2024-08-07 10:00] LABS: Lymphocytes % 4 % (10-50); Monocytes % 3 % (2-9); Neutrophils % 91 % (42-76); Total Cells Counted 100
[2024-08-07 10:01] LABS: Anisocytosis 1+; Macrocytosis 1+; Platelet Estimate Moderate Decrease; Potassium 2.5 mmoL/L (3.5-5.1)
[2024-08-07] MEDS: MAGNESIUM SULFATE IN WATER 2 GM/50 ML PIGGYBACK IV ×2 (10:21→11:01)
[2024-08-07] MEDS: KCl 10mEq/100ml 100 ML 100 MEQ IV ×8 (10:39→18:09)
[2024-08-07 11:18] LABS: POC Glucose,Bedside 210 (70-110)
[2024-08-07] MEDS: POTASSIUM CHLORIDE 20MEQ TAB 20 MEQ PO (12:51)
[2024-08-07 14:58] LABS: Potassium 2.4 mmoL/L (3.5-5.1)
--- NOTE | 2024-08-07 15:38 | EXP.EVENT.NO ---
Advance care planning note: Active diagnosis: Metastatic cancer of unknown primary, failure to thrive, severe protein calorie malnutrition, C. difficile colitis, E. coli bacteremia The patient's active diagnoses are of sufficient risk that focused discussion on advanced care planning is indicated in order to allow the patient to thoughtfully consider personal goals of care; and, if situations arise that prevent the ability to personally give input, to ensure appropriate representation of their personal desires through documentation or informed surrogate decision makers. Discussion: Persons present and participating in discussion: Sister (POA), patient, son Discussion: Extensive discussion about patient's continued decline, his significant cancer that would be stage IV if were able to diagnose. Discussed continued weakness and decline and concern for palliative cancer therapy to prolong life versus hospice care for comfort and quality. This time family along with patient would like to consider rehab to attempt to get stronger and see if he can be well enough to consider chemotherapy or treatment. Awaiting tissue pathology for further discussion about treatment options Time spent: Total time spent [id number] in education and discussion directly related to advance care plannin minutes Ran English 08/07/2024
[2024-08-07 16:19] LABS: POC Glucose,Bedside 246 (70-110)
--- NOTE | 2024-08-07 17:32 | PC.NURSE ---
PT HAS TOLERATED RA WELL THROUGHOUT SHIFT. RESPIRATIONS REGULAR AND UNLABORED. LUNG SOUNDS DIMINISHED IN BILATERAL BASES. NO COUGH NOTED. +2 PITTING EDEMA NOTED TO RLE. +1 PITTING EDEMA NOTED TO LLE. NONPITTING EDEMA NOTED TO BUE. HEART RATE REGULAR. HAND CUSTOMER ACCOUNT REPRESENTATIVE EQUAL. +1 PULSES NOTED THROUGHOUT. ACTIVE BOWEL SOUNDS HEARD IN ALL 4 QUADRANTS. SOFT AND NONTENDER ABDOMEN. PT VOIDS PER PURWICK WITH ADEQUATE OUTPUT NOTED THIS SHIFT. CLEAR YELLOW URINE NOTED. PT HAS HAD SEVERAL LOOSE STOOLS THIS SHIFT AND ASSISTED WITH CLEANING PT UP NEEDED. PT MOVES INDEPENDENTLY IN BED. PT HAS A DECREASED APPETITE. DENIES DESIRE FOR ANYTHING TO EAT. STATES HE HASN'T HAD MUCH OF AN APPETITE LATELY. PT HAS RECEIVED 2 BAGS OF MAG, 8 BAGS OF K PER ELECTROLYTE PROTOCOL, AND ANTIBIOTICS PER JUN. PT HAS TOLERATED ALL WELL. PT HAS DENIED ANY PAIN THIS SHIFT. FAMILY HAS BEEN AT BEDSIDE MOST OF THE SHIFT. PT SIGNED DNR THIS SHIFT AND DNR IS ON FILE. PLAN TO DC PT TO [facility] ON SATURDAY PENDING K LEVEL. FAMILY AWARE. PT HAS REMAINED IN CONTACT [employer] FOR CDIFF THROUGHOUT SHIFT WITH PROPER PPE WORN. BED IN LOWEST POSITION. CALL LIGHT WITHIN REACH. VSS. PT HAS REMAINED AFEBRILE. NO QUESTIONS OR CONCERNS VOICED THIS SHIFT.
--- NOTE | 2024-08-07 18:13 | EXP.ACUTE.PN ---
Subjective *Date: 08/07/24 *Time: 20:51 Interval history: Still feels quite weak. Denies any fever. No nausea or vomiting. having improvement in BMs, on Room air. Still appears volume overloaded, continue Bumex daily. Significant electrolyte disturbances today with low potassium and phosphorus. Replacing aggressively. Continues to have poor p.o. intake. Encouraging boost with meals Medical Exam Vital signs and Labs for Last 24 Hours: Vital Signs Temp Pulse Pulse Resp BP Pulse Ox O2 Del Method 08/07/24 16:00 80 08/07/24 16:00 88 17 125/71 92 L Room Air 08/07/24 15:08 Room Air 08/07/24 13:15 Room Air 08/07/24 12:00 90 08/07/24 12:00 97.2 F L 80 16 99/58 L 95 Room Air 08/07/24 11:20 Room Air 08/07/24 09:30 74 91 L Room Air 08/07/24 09:15 Room Air 08/07/24 08:00 90 08/07/24 08:00 97.6 F 74 17 122/53 L 91 L Room Air 08/07/24 06:50 Room Air 08/07/24 05:00 Room Air 08/07/24 04:00 89 08/07/24 04:00 97.4 F L 94 H 16 111/64 95 Room Air 08/07/24 03:00 Room Air 08/07/24 01:00 Room Air 08/07/24 00:00 88 08/07/24 00:00 98.6 F 82 20 124/61 95 Room Air 08/06/24 23:00 Room Air 08/06/24 21:00 Room Air 08/06/24 20:00 83 20 95 Room Air 08/06/24 20:00 92 H 08/06/24 20:00 97.5 F L 83 20 124/68 95 Room Air 08/06/24 18:30 Room Air Intake and Output 08/07/24 08/07/24 08/07/24 07:59 15:59 23:59 Intake Total 1350 / 1798 200 / 1798 248 / 1798 Output Total 500 / 2100 800 / 2100 800 / 2100 Balance 850 / -302 -600 / -302 -552 / -302 Intake: Intake, Oral Amount 350 / 550 200 / 550 Intake, Other Amount 200 / 200 Intake, Total IV Amount 248 / 248 Levofloxacin/D5w 750 mg/150 ml 148 / 148 750 mg In 150 ml @ 100 mls/hr IV 1100 [facility] Rx#:[id number] Magnesium Sulfate in Water 2 gm 100 / 100 In 50 ml @ 50 mls/hr IV Q1H [facility] Rx#:[id number] Infusion Intake 800 / 800 KCl 10mEq/100ml 100 ml @ 100 400 / 400 mls/hr IV Q1H [facility] Rx#:[id number] Piperacillin/Tazo 4.5 gm In 0.9 100 / 100 % Sodium Chloride 100 ml @ 200 mls/hr IV Q6H [facility] Rx#:[id number] Vancomycin/Water For Inj (Peg) 300 / 300 1.5 gm In 300 ml @ 150 mls/hr IV Q12H [facility] Rx#:[id number] Output: Output, Urine Amount 500 / 2100 800 / 2100 800 / 2100 Other: Number of Unmeasured Voids 0 0 0 Number of Bowel Movements 1 1 Weight 103.107 kg 103 kg Patient Weight 08/07/24 23:59 Weight 103 kg Laboratory Results - last 24 hr 08/06/24 20:25: POC Glucose 223 H 08/07/24 05:21: POC Glucose 212 H 08/07/24 09:25: WBC 10.3, RBC 3.41 L, Hgb 10.9 L, Hct 31.1 L, MCV 91.2, MCH 32.0 H, MCHC 35.0, RDW 15.1, Plt Count 88 L, MPV 9.7, Neut % (Auto) 93.9 H, Lymph % (Auto) 2.7 L, [place] % (Auto) 2.3, Eos % (Auto) 0.0 L, Baso % (Auto) 0.2, Neut # (Auto) 9.7 H, Lymph # (Auto) 0.3 L, [place] # (Auto) 0.2, Eos # (Auto) 0.0, Baso # (Auto) 0.0, Total Counted 100, Neutrophils % (Manual) 91 H, Band Neutrophils % 2.0, Lymphocytes % (Manual) 4 L, Monocytes % (Manual) 3, Platelet Estimate Moderate decrease, Anisocytosis 1+, Macrocytosis 1+, Sodium 139, Potassium 2.5 L*, Chloride 104, Carbon Dioxide 35 H, Anion Gap 2.5 L, BUN 18, Creatinine 0.60 L D, Estimated Creat Clear 107, Estimated GFR 135, Est GFR ( Amer) 164 D, Glucose 151 H, Calcium 6.3 L, Magnesium 1.7, Total Bilirubin 2.6 H, AST 105 H, ALT 170 H, Alkaline Phosphatase 290 H, Total Protein 4.3 L, Albumin 2.0 L D, Globulin 2.3, Albumin/Globulin Ratio 0.9 L 08/07/24 11:00: POC Glucose 210 H 08/07/24 14:05: Potassium 2.4 L* 08/07/24 16:12: POC Glucose 246 H I & O for Labs for Last 24 Hours: Intake & Output 08/04/24 08/05/24 08/06/24 08/07/24 23:59 23:59 23:59 23:59 Intake Total 1205 / 1205 1050 / 1050 2711 / 4061 1798 / 1798 Output Total 825 / 825 2200 / 3200 4900 / 5150 2100 / 2100 Balance 380 / 380 -1150 / -2150 -2189 / -1089 -302 / -302 Weight 100.924 kg 102.376 kg 100.561 kg 103 kg Microbiology Reports for the Last 24 Hours: Microbiology 08/05/24 10:15 Sputum - Expectorated Sputum Gram Stain - Final 08/05/24 10:15 Sputum - Expectorated Sputum Sputum Culture - Final Yeast 08/04/24 08:57 Blood Blood Culture - Preliminary Escherichia coli Constitutional: Present no acute distress, chronically ill appearing and cooperative Head: Present atraumatic and normocephalic ENT: Present normal exam Respiratory: Present normal respiratory effort; Absent rhonchi, wheezes or crackles Cardiac: Present Reg Rate and Rhythm GI: Present soft, tenderness (Nonfocal) and normal bowel sounds; Absent distention Extremities: Present normal inspection, full ROM and edema (3+ to knees, 2+ in all) Skin: Present intact and pallor; Absent erythema Neuro: Present Grossly Intact, alert, awake, oriented x 3 and moves all extremities Assessment and Plan *Assessment and plan (1) C. difficile colitis: Status: Acute Category: Medical Code(s): A04.72 - Enterocolitis due to Clostridium difficile, not specified as recurrent (2) Metastatic cancer: Status: Acute Category: Medical Code(s): C79.9 - Secondary malignant neoplasm of unspecified site (3) Rectal bleeding: Status: Acute Category: Medical Code(s): K62.5 - Hemorrhage of anus and rectum (4) Elevated liver enzymes: Status: Acute Category: Medical Code(s): R74.8 - Abnormal levels of other serum enzymes (5) Lung mass: Status: Acute Category: Medical Code(s): R91.8 - Other nonspecific abnormal finding of lung field (6) Diarrhea: Status: Acute Category: Medical Code(s): R19.7 - Diarrhea, unspecified (7) Lower extremity edema: Status: Acute Category: Medical Code(s): R60.0 - Localized edema (8) Fecal urgency: Status: Acute Category: Medical Code(s): R15.2 - Fecal urgency (9) Protein-losing enteropathy: Status: Acute Category: Medical Code(s): K90.49 - Malabsorption due to intolerance, not elsewhere classified (10) E coli bacteremia: Status: Acute Category: Medical Code(s): R78.81 - Bacteremia; B96.20 - Unspecified Escherichia coli [E. coli] as the cause of diseases classified elsewhere (11) Pneumonia: Status: Acute Category: Medical Code(s): J18.9 - Pneumonia, unspecified organism (12) Shock: Status: Acute Category: Medical Code(s): R57.9 - Shock, unspecified (13) Acute GI bleeding: Status: Acute Category: Medical Code(s): K92.2 - Gastrointestinal hemorrhage, unspecified (14) Unintentional weight loss: Status: Acute Category: Medical Code(s): R63.4 - Abnormal weight loss (15) Metastasis to liver: Status: Acute Category: Medical Code(s): C78.7 - Secondary malignant neoplasm of liver and intrahepatic bile duct (16) Mass of kidney: Status: Inactive Category: Medical Code(s): N28.89 - Other specified disorders of kidney and ureter (17) Smoking greater than 30 pack years: Status: Acute Category: Social Hx Code(s): F17.210 - Nicotine dependence, cigarettes, uncomplicated (18) Transaminitis: Status: Acute Category: Medical Code(s): R74.01 - Elevation of levels of liver transaminase levels (19) Cigarette smoker: Problem Comment: current, 2024, greater than 40 pack year history Status: Acute Category: Social Hx Code(s): F17.210 - Nicotine dependence, cigarettes, uncomplicated (20) Hypertension: Status: Acute Category: Medical Code(s): I10 - Essential (primary) hypertension (21) Diabetes mellitus: Status: Acute Category: Medical Code(s): E11.9 - Type 2 diabetes mellitus without complications Plan 64-year-old male with recent diagnosis of metastatic cancer of unknown primary, presents to the ED with GI bleed/bright red blood per rectum. Discussed case with ER physician, request admission for further management of his shock state and suspected GI bleed. I agreed to admit for further care. GI consulted, appreciate their assistance. Correcting electrolyte disturbances, awaiting improvement to discharge to rehab. Continues to require inpatient management. Problems addressed as follows: C. difficile colitis E. coli bacteremia Acute blood loss anemia Diarrhea - Bloody stools improving, slowing down and frequency. Hemoglobin 10. Transfusion threshold hemoglobin less than 7 - Continue vancomycin 125 mg 4 times a day p.o. for total of 10 days - Blood culture positive for Enterobacter/E. coli on PCR. Sensitive to Levaquin, transition to Levaquin once daily to complete 10 days of gram-negative coverage for bacteremia. Discontinue vancomycin and Zosyn IV - Phosphorus, CBC, CMP, magnesium ordered for the morning. Shock: Hypovolemic versus septic Hypokalemia Hypophosphatemia -Potassium 2.5, phosphorus 1.1, replacing aggressively. Will schedule potassium 40 mEq 3 times a day. Repeat levels ordered for this afternoon. Would like to see potassium greater than 3 prior to discharge to rehab - Resolving, white count 10. - Found to be bacteremic with E. coli positive for C. difficile as above - Repeat procalcitonin ordered for the morning -Continue antibiotics as above -Systolic blood pressures remain above 100. Metastatic cancer of unknown primary, suspected lung versus colon - Patient taken for IR guided biopsy of liver lesion 08/05/24. Pathology pending. Further management pending results. -CEA elevated at 746, CA 19-9 elevated at 1389, these have both increased in the past month -Will need follow-up with oncology, referred to Dr. Lutz for further assistance Diabetes: Morning glucose 212, A1c elevated 8.4 earlier this month, continue sliding scale insulin and fingersticks ACHS. Holding oral diabetes medications in the setting of shock/diarrhea Hypertension: Resume Bumex 1 mg IV daily due to edema and hypertension. Reevaluate initiation of home regimen in the morning Tobacco use disorder: Nicotine patch as needed Evaluated by therapy, recommend skilled placement for rehab. Family would like to consider [facility]. Case management placing referral today. Full code Diabetic diet Sister is surrogate decision-maker/POA
[2024-08-07] MEDS: POTASSIUM PHOS IN 0.9 % NACL 15 MMOL/250 ML PIGGYBACK 62.5 MMOL IV (19:14)
[2024-08-07 19:37] LABS: Phosphorous 1.1 mg/dl (2.5-4.5)
[2024-08-07 20:18] LABS: POC Glucose,Bedside 190 (70-110)
[2024-08-07] MEDS: POTASSIUM CHLORIDE 20MEQ TAB 40 MEQ PO (20:45)
[2024-08-07] MEDS: TRAZODONE 50MG TABLET 50 MG PO (20:45)
[2024-08-07] MEDS: INSULIN GLARGINE 100 UNITS/ML 3ML FLEXPEN 15 UNIT SUBCUT (20:46)
[2024-08-08] VITALS: BP 93/55; PULSE 80; PULSE 82; RESP 16; TEMP 37; O2SAT 97
--- NOTE | 2024-08-08 03:56 | PC.NURSE ---
v/s, ox4. Pt Q2 turned and changed due to c-diff/loose stool incontinence. Wound bandage changed on coccyx, and barrier cream applied. Phosphorus and potassium replaced. Blood glucose monitored. No acute events to report. Plan of care ongoing.
[2024-08-08 04:00] VITALS: BP 120/65; PULSE 70; PULSE 83; RESP 14; TEMP 36.9; O2SAT 95; BMI 26.7
[2024-08-08 06:28] LABS: POC Glucose,Bedside 180 (70-110)
[2024-08-08] MEDS: humaLOG 100 UNITS/ML 10ML VIAL (SSI) SUBCUT ×4 (06:49→21:19)
[2024-08-08] MEDS: POTASSIUM CHLORIDE 20MEQ TAB 40 MEQ PO ×3 (07:52→21:20)
[2024-08-08] MEDS: SPIRONOLACTONE 25MG TABLET 50 MG PO (07:52)
[2024-08-08] MEDS: BUMETANIDE 1MG/4ML VIAL 1 MG IV (07:53)
[2024-08-08 08:00] VITALS: BP 132/77; PULSE 80; RESP 18; TEMP 36.4; O2SAT 95
[2024-08-08 08:01] LABS: Basophils % 0.2 % (0.1-2.0); Hematocrit 31.3 % (42.0-52.0); Hemoglobin 10.5 g/dL (14.1-18.0); Lymphocytes # 0.3 K/mm3 (0.7-4.5); Lymphocytes % 3.3 % (10-50); Mean Corpuscular HGB Conc 33.5 g/dL (31.8-35.4); Mean Corpuscular Hemoglobin 31.2 pg (27.0-31.2); Mean Corpuscular Volume 92.9 fl (80-94); Mean Platelet Volume 10.5 fl (7.4-10.4); Monocytes # 0.2 K/mm3 (0.1-1.0); Monocytes % 2.1 % (1.7-9.3); Neutrophils # 9.5 K/mm3 (1.8-7.8); Neutrophils % 93.5 % (37.0-80.0); Nucleated Red Blood Cells # 0 10^3/uL; Nucleated Red Blood Cells % 0 %; Platelet Count 79 K/mm3 (142-424); Red Blood Count 3.37 M/mm3 (4.60-6.20); Red Cell Distribution Width 15.3 % (11.5-17.5); Red Cell Distribution Width-SD 51.7 fL; White Blood Count 10.2 K/mm3 (4.8-10.8)
[2024-08-08] MEDS: VANCOMYCIN HCL 50MG/ML 150ML KIT 125 MG PO ×4 (08:04→21:20)
[2024-08-08 08:05] LABS: MANUAL DIFFERENTIAL MANUAL DIFFERENTIAL (MANUAL DIFF)
[2024-08-08 08:29] LABS: Magnesium 1.9 mg/dl (1.6-2.3)
[2024-08-08 08:35] LABS: Alanine Aminotransferase 156 U/L (12-78); Albumin Level 2.2 g/dl (3.5-5.0); Albumin/Globulin Ratio 0.9 (1.1-1.8); Alkaline Phosphatase 296 U/L (38-126); Anion Gap 0.8 mEq/L (5-15); Aspartate Amino Transferase 109 U/L (17-59); Bilirubin,Total 2.7 mg/dl (0.2-1.3); Blood Urea Nitrogen 16 mg/dl (9-20); Calcium 6.2 mg/dl (8.4-10.2); Carbon Dioxide 37 mmol/L (22.0-30.0); Chloride 104 mmol/L (98-107); Creatinine Clearance Estimated 99 mL/min (50-200); Estimated Glomerular Filt Rate 135 ml/min (>60); GFR (African American) 164 ML/MIN (>60); Globulin 2.5 g/dL (1.3-3.2); Glucose 152 mg/dl (74-100); Sodium 139 mmol/L (136-145); Total Protein,Serum 4.7 g/dl (6.3-8.2)
[2024-08-08 08:43] LABS: Potassium 2.8 mmoL/L (3.5-5.1)
[2024-08-08 09:03] LABS: Phosphorous 1.5 mg/dl (2.5-4.5)
--- NOTE | 2024-08-08 09:08 | P.PN_ITS ---
Subjective *Date: 08/08/24 *Time: 12:14 Interval history: Patient feeling no better but no worse today. Stable on room air. Afebrile. Down 1 L fluid status in the past 24 hours. Still having poor p.o. intake. Encouraged to get out of bed today, up to chair. No nausea or vomiting. Medical Exam Vital signs and Labs for Last 24 Hours: Vital Signs Temp Pulse Pulse Resp BP Pulse Ox O2 Del Method 08/08/24 08:21 Room Air 08/08/24 08:00 97.5 F L 80 18 132/77 95 Room Air 08/08/24 08:00 Room Air 08/08/24 06:04 Room Air 08/08/24 04:00 98.5 F 83 14 120/65 95 Room Air 08/08/24 04:00 70 08/08/24 02:14 Room Air 08/08/24 00:17 Room Air 08/08/24 00:00 80 08/08/24 00:00 98.6 F 82 16 93/55 L 97 Room Air 08/07/24 23:00 Room Air 08/07/24 21:00 Room Air 08/07/24 20:00 Room Air 08/07/24 20:00 90 08/07/24 19:32 98.2 F 99 H 16 127/76 92 L Room Air 08/07/24 18:35 Room Air 08/07/24 17:30 Room Air 08/07/24 16:00 80 08/07/24 16:00 88 17 125/71 92 L Room Air 08/07/24 15:08 Room Air 08/07/24 13:15 Room Air 08/07/24 12:00 90 08/07/24 12:00 97.2 F L 80 16 99/58 L 95 Room Air 08/07/24 11:20 Room Air 08/07/24 09:30 74 91 L Room Air 08/07/24 09:15 Room Air O2 Flow Rate 08/08/24 08:21 08/08/24 08:00 08/08/24 08:00 08/08/24 06:04 08/08/24 04:00 95 08/08/24 04:00 08/08/24 02:14 08/08/24 00:17 08/08/24 00:00 08/08/24 00:00 08/07/24 23:00 08/07/24 21:00 08/07/24 20:00 08/07/24 20:00 08/07/24 19:32 08/07/24 18:35 08/07/24 17:30 08/07/24 16:00 08/07/24 16:00 08/07/24 15:08 08/07/24 13:15 08/07/24 12:00 08/07/24 12:00 08/07/24 11:20 08/07/24 09:30 08/07/24 09:15 Intake and Output 08/07/24 08/08/24 08/08/24 23:59 07:59 15:59 Intake Total 448 / 2118 120 / 360 240 / 360 Output Total 800 / 2200 300 / 1400 1100 / 1400 Balance -352 / -82 -180 / -1040 -860 / -1040 Intake: Intake, Oral Amount 200 / 870 120 / 360 240 / 360 Intake, Total IV Amount 248 / 248 Levofloxacin/D5w 750 mg/150 ml 148 / 148 750 mg In 150 ml @ 100 mls/hr IV 1100 [facility] Rx#:[id number] Magnesium Sulfate in Water 2 gm 100 / 100 In 50 ml @ 50 mls/hr IV Q1H [facility] Rx#:[id number] Output: Output, Urine Amount 800 / 2200 300 / 1400 1100 / 1400 Other: Number of Unmeasured Voids 0 2 0 Number of Bowel Movements 2 Weight 94.665 kg Patient Weight 08/08/24 23:59 Weight 94.665 kg Laboratory Results - last 24 hr 08/07/24 09:25: WBC 10.3, RBC 3.41 L, Hgb 10.9 L, Hct 31.1 L, MCV 91.2, MCH 32.0 H, MCHC 35.0, RDW 15.1, Plt Count 88 L, MPV 9.7, Neut % (Auto) 93.9 H, Lymph % (Auto) 2.7 L, [place] % (Auto) 2.3, Eos % (Auto) 0.0 L, Baso % (Auto) 0.2, Neut # (Auto) 9.7 H, Lymph # (Auto) 0.3 L, [place] # (Auto) 0.2, Eos # (Auto) 0.0, Baso # (Auto) 0.0, Total Counted 100, Neutrophils % (Manual) 91 H, Band Neutrophils % 2.0, Lymphocytes % (Manual) 4 L, Monocytes % (Manual) 3, Platelet Estimate Moderate decrease, Anisocytosis 1+, Macrocytosis 1+, Sodium 139, Potassium 2.5 L*, Chloride 104, Carbon Dioxide 35 H, Anion Gap 2.5 L, BUN 18, Creatinine 0.60 L D, Estimated Creat Clear 107, Estimated GFR 135, Est GFR ( Amer) 164 D , Glucose 151 H, Calcium 6.3 L, Magnesium 1.7, Total Bilirubin 2.6 H, AST 105 H, ALT 170 H, Alkaline Phosphatase 290 H, Total Protein 4.3 L, Albumin 2.0 L D, Globulin 2.3, Albumin/Globulin Ratio 0.9 L 08/07/24 11:00: POC Glucose 210 H 08/07/24 14:05: Potassium 2.4 L*, Phosphorus 1.1 L 08/07/24 16:12: POC Glucose 246 H 08/07/24 20:11: POC Glucose 190 H 08/08/24 06:21: POC Glucose 180 H 08/08/24 07:39: WBC 10.2, RBC 3.37 L, Hgb 10.5 L, Hct 31.3 L, MCV 92.9, MCH 31.2, MCHC 33.5, RDW 15.3, Plt Count 79 L, MPV 10.5 H, Neut % (Auto) 93.5 H, Lymph % (Auto) 3.3 L, [place] % (Auto) 2.1, Eos % (Auto) 0.0 L, Baso % (Auto) 0.2, Neut # (Auto) 9.5 H, Lymph # (Auto) 0.3 L, [place] # (Auto) 0.2, Eos # (Auto) 0.0, Baso # (Auto) 0.0, Sodium 139, Potassium 2.8 L*, Chloride 104, Carbon Dioxide 37 H, Anion Gap 0.8 L, BUN 16, Creatinine 0.60 L, Estimated Creat Clear 99, Estimated GFR 135, Est GFR ( Amer) 164, Glucose 152 H, Calcium 6.2 L, Phosphorus 1.5 L D, Magnesium 1.9 D, Total Bilirubin 2.7 H, AST 109 H, ALT 156 H, Alkaline Phosphatase 296 H, Total Protein 4.7 L, Albumin 2.2 L, Globulin 2.5, Albumin/Globulin Ratio 0.9 L I & O for Labs for Last 24 Hours: Intake & Output 08/05/24 08/06/24 08/07/24 08/08/24 23:59 23:59 23:59 23:59 Intake Total 1050 / 1050 2711 / 4061 1997 / 2117 360 / 360 Output Total 2200 / 3200 4900 / 5150 2100 / 2200 1400 / 1400 Balance -1150 / -2150 -2189 / -1089 -102 / -82 -1040 / -1040 Weight 102.376 kg 100.561 kg 103 kg 94.665 kg Microbiology Reports for the Last 24 Hours: Microbiology 08/04/24 08:55 Blood Blood Culture - Preliminary NO GROWTH AFTER 4 DAYS 08/05/24 10:15 Sputum - Expectorated Sputum Gram Stain - Final 08/05/24 10:15 Sputum - Expectorated Sputum Sputum Culture - Final Yeast 08/04/24 08:57 Blood Blood Culture - Preliminary Escherichia coli Constitutional: Present no acute distress, chronically ill appearing and cooperative Head: Present atraumatic and normocephalic ENT: Present normal exam Respiratory: Present normal respiratory effort; Absent rhonchi, wheezes or crackles Cardiac: Present Reg Rate and Rhythm GI: Present soft, tenderness (Nonfocal) and normal bowel sounds; Absent distention Extremities: Present normal inspection, full ROM and edema (3+ to knees, 2+ in all) Skin: Present intact and pallor; Absent erythema Neuro: Present Grossly Intact, alert, awake, oriented x 3 and moves all extremities Assessment and Plan *Assessment and plan (1) C. difficile colitis: Status: Acute Category: Medical Code(s): A04.72 - Enterocolitis due to Clostridium difficile, not specified as recurrent (2) Metastatic cancer: Status: Acute Category: Medical Code(s): C79.9 - Secondary malignant neoplasm of unspecified site (3) Rectal bleeding: Status: Acute Category: Medical Code(s): K62.5 - Hemorrhage of anus and rectum (4) Elevated liver enzymes: Status: Acute Category: Medical Code(s): R74.8 - Abnormal levels of other serum enzymes (5) Lung mass: Status: Acute Category: Medical Code(s): R91.8 - Other nonspecific abnormal finding of lung field (6) Diarrhea: Status: Acute Category: Medical Code(s): R19.7 - Diarrhea, unspecified (7) Lower extremity edema: Status: Acute Category: Medical Code(s): R60.0 - Localized edema (8) Fecal urgency: Status: Acute Category: Medical Code(s): R15.2 - Fecal urgency (9) Protein-losing enteropathy: Status: Acute Category: Medical Code(s): K90.49 - Malabsorption due to intolerance, not elsewhere classified (10) E coli bacteremia: Status: Acute Category: Medical Code(s): R78.81 - Bacteremia; B96.20 - Unspecified Escherichia coli [E. coli] as the cause of diseases classified elsewhere (11) Pneumonia: Status: Acute Category: Medical Code(s): J18.9 - Pneumonia, unspecified organism (12) Shock: Status: Acute Category: Medical Code(s): R57.9 - Shock, unspecified (13) Acute GI bleeding: Status: Acute Category: Medical Code(s): K92.2 - Gastrointestinal hemorrhage, unspecified (14) Unintentional weight loss: Status: Acute Category: Medical Code(s): R63.4 - Abnormal weight loss (15) Metastasis to liver: Status: Acute Category: Medical Code(s): C78.7 - Secondary malignant neoplasm of liver and intrahepatic bile duct (16) Mass of kidney: Status: Inactive Category: Medical Code(s): N28.89 - Other specified disorders of kidney and ureter (17) Smoking greater than 30 pack years: Status: Acute Category: Social Hx Code(s): F17.210 - Nicotine dependence, cigarettes, uncomplicated (18) Transaminitis: Status: Acute Category: Medical Code(s): R74.01 - Elevation of levels of liver transaminase levels (19) Cigarette smoker: Problem Comment: current, 2024, greater than 40 pack year history Status: Acute Category: Social Hx Code(s): F17.210 - Nicotine dependence, cigarettes, uncomplicated (20) Hypertension: Status: Acute Category: Medical Code(s): I10 - Essential (primary) hypertension (21) Diabetes mellitus: Status: Acute Category: Medical Code(s): E11.9 - Type 2 diabetes mellitus without complications Plan 64-year-old male with recent diagnosis of metastatic cancer of unknown primary, presents to the ED with GI bleed/bright red blood per rectum. Discussed case with ER physician, request admission for further management of his shock state and suspected GI bleed. I agreed to admit for further care. GI consulted, appreciate their assistance. Continuing to replace electrolytes, continue to encourage p.o. intake. Anticipate stability for discharge tomorrow. Working with rehab. Problems addressed as follows: C. difficile colitis E. coli bacteremia Acute blood loss anemia Diarrhea - Bloody stools resolving. Hemoglobin 10. White count 10. Transfusion threshold hemoglobin less than 7 - Continue vancomycin 125 mg 4 times a day p.o. for total of 10 days, last dose 08/14/2024 - Blood culture positive for Enterobacter/E. coli on PCR. Continue Levaquin 750 mg IV daily to complete 10 days of therapy. Will transition to oral at discharge. 08/13/2024 - Phosphorus, CBC, CMP, magnesium ordered for the morning. Hypokalemia Hypophosphatemia -Potassium 2.8, phosphorus 1.5. Magnesium 1.9. replacing aggressively. Will schedule potassium 40 mEq 3 times a day. Administer IV potassium phosphate x 1 today. Repeat labs ordered for the morning. Metastatic cancer of unknown primary, suspected lung versus colon - Patient taken for IR guided biopsy of liver lesion 08/05/24. Pathology pending. Further management pending results. -CEA elevated at 746, CA 19-9 elevated at 1389, these have both increased in the past month -Will need follow-up with oncology, referred to Dr. Lutz for further assistance Diabetes: Morning glucose 152, A1c elevated 8.4 earlier this month, continue sliding scale insulin and fingersticks ACHS. Holding oral diabetes medications in the setting of shock/diarrhea Hypertension: Continue bumex 1 mg IV daily due to edema and hypertension. Reevaluate initiation of home regimen at discharge Tobacco use disorder: Nicotine patch as needed Evaluated by therapy, recommend skilled placement for rehab. Patient excepted [facility], anticipate discharge tomorrow to their care. Full code Diabetic diet Sister is surrogate decision-maker/POA
[2024-08-08] MEDS: LEVOFLOXACIN/D5W 750 MG/150 ML 750 MG/150 ML PIGGYBACK 100 MG IV (10:11)
[2024-08-08 10:12] LABS: Lymphocytes % 2 % (10-50); Monocytes % 1 % (2-9); Neutrophils % 97 % (42-76); Platelet Estimate Moderate Decrease; RBC Morphology Normal; Total Cells Counted 100
[2024-08-08] MEDS: POTASSIUM PHOS IN 0.9 % NACL 15 MMOL/250 ML PIGGYBACK 62.5 MMOL IV (10:12)
[2024-08-08 10:17] LABS: POC Glucose,Bedside 167 (70-110)
[2024-08-08 12:00] VITALS: BP 104/53; PULSE 86; RESP 18; TEMP 36.4; O2SAT 93
--- NOTE | 2024-08-08 12:13 | PC.NURSE ---
Pt's sister states that the patient would like to be cleaned up after he eats his lunch.
[2024-08-08] MEDS: ACETAMINOPHEN 325MG TAB 650 MG PO (12:25)
--- NOTE | 2024-08-08 14:14 | PC.NURSE ---
Aox4, up with assistance times 2, on contact for c-diff, purewick in place, PT and OT following, awaiting a bed at [facility] on Saturday, Tylenol given for pain.
[2024-08-08 15:51] LABS: POC Glucose,Bedside 274 (70-110)
[2024-08-08 16:00] VITALS: BP 102/54; PULSE 88; PULSE 90; RESP 20; TEMP 36.4; O2SAT 96
[2024-08-08 19:56] LABS: POC Glucose,Bedside 232 (70-110)
[2024-08-08 20:00] VITALS: BP 116/75; PULSE 90; PULSE 95; RESP 16; TEMP 36.4; O2SAT 95
[2024-08-08] MEDS: TRAZODONE 50MG TABLET 50 MG PO (21:19)
[2024-08-08] MEDS: INSULIN GLARGINE 100 UNITS/ML 3ML FLEXPEN 15 UNIT SUBCUT (21:20)
[2024-08-09] VITALS: BP 115/72; PULSE 90; PULSE 95; RESP 16; TEMP 36.7; O2SAT 95
[2024-08-09 04:00] VITALS: BP 117/56; PULSE 87; RESP 16; TEMP 36.4; O2SAT 94; BMI 26.7
--- NOTE | 2024-08-09 05:26 | PC.NURSE ---
V/s, ox4. C-diff precautions maintained. Pt changed about Q2hrs due to stool incontinence. No acute events to report. Plan of care ongoing.
[2024-08-09 05:43] LABS: POC Glucose,Bedside 220 (70-110)
[2024-08-09] MEDS: humaLOG 100 UNITS/ML 10ML VIAL (SSI) SUBCUT ×4 (06:42→21:58)
--- NOTE | 2024-08-09 07:31 | EXP.DC.SUM ---
General Admission date:: 08/04/24 Discharge date: 08/09/24 HPI HPI HPI: Mr. Wolfe is a 64-year-old male who presented earlier this month and was found to have new diagnosis of metastatic cancer of unknown primary. Suspicious for GI source given elevated CEA and CA 19-9. He has been undergoing outpatient workup but has been having continued weight loss, weight is down about 10 kg in the past month. He missed a PET scan earlier this week due to glucose abnormalities. He presented today to the ER because of bright red blood per rectum. States he has had diarrhea ever since starting metformin a few months ago. Stool panel at the beginning of the month was negative for C. difficile or analytes. Has continued to have worsening diarrhea however and underwent colonoscopy within the past month that showed a few polyps and hemorrhoids but no significant other findings. EGD did show some varices. States that for the past 48 hours she has been having bloody bowel movements, large bowel movement today that overflowed his depends. Continue to have abnormal weight loss. Continues have elevated liver chemistries. CAT scan obtained today of his abdomen showing diffuse colitis. Stable on room air. Of note, found to be hypotensive as well. Denies any fever. States he feels poorly. Sister and son at bedside assisting with care. In the ER, found to be anemic. Hemoglobin 2 weeks ago of 14, 12 on arrival to the ED. Transfusion initiated and received 2 units of packed red blood cells and 1 L of IV fluids. Initiated on broad-spectrum antibiotics due to his hypotensive state concerning for shock secondary to hypovolemia versus sepsis. Medicine consulted for admission and further management Upon arrival to the floor, patient is admitted to the ICU due to his shock state. Repeat hemoglobin after transfusion is at 10. Blood pressure showing improvement however, systolics in the 110s. Patient denies any nausea or vomiting. Is on 2 L oxygen for comfort. Afebrile. Currently alert and oriented. Hospital Course Hospital Course Hospital Course: 64-year-old male with recent diagnosis of metastatic cancer of unknown primary, presents to the ED with GI bleed/bright red blood per rectum. Discussed case with ER physician, request admission for further management of his shock state and suspected GI bleed. I agreed to admit for further care. GI consulted, appreciate their assistance. Continue aggressive electrolyte replacement. Doing better by morning of discharge with improvement in potassium. Tolerating p.o. fluids and meds. Discharged to [facility] for further management. If no improvement in the coming weeks, family interested in considering hospice eval. Problems addressed as follows: C. difficile colitis E. coli bacteremia Acute blood loss anemia Diarrhea - Bloody diarrhea on admission. Hemoglobin stabilized at 10. Found to be positive for C. difficile as well as bacteremic with E. coli. Initiated on oral vancomycin, will continue for 10 days along with IV Levaquin, transition to oral at discharge. White count normal at 9.6 on day of discharge. Afebrile. Still having loose stools but nonbloody. Did not require transfusion during admission. Continue vancomycin 125 mg 4 times a day p.o. for total of 10 days, last dose 08/14/2024. Blood culture positive for Enterobacter/E. coli on PCR. Continue Levaquin 750 mg daily to complete 10 days of therapy. Will transition to oral at discharge. Last day 08/13/2024 Hypokalemia Hypophosphatemia - On day of discharge, potassium improved to 4.2 with replacement. Magnesium 1.8. Phosphorus improving at 1.4. Will continue supplementation orally with both potassium and phosphorus. Recommend repeat labs in 1 week Metastatic cancer of unknown primary, suspected lung versus colon - Patient taken for IR guided biopsy of liver lesion 08/05/24. Pathology pending. Further management pending results. -CEA elevated at 746, CA 19-9 elevated at 1389, these have both increased in the past month -Will need follow-up with oncology, referred to Dr. Lutz for further assistance Diabetes: Morning glucose is better controlled. A1c 8.4. Sliding scale during admission. Consider low-dose insulin glargine 15 units nightly. Fingersticks ACHS Hypertension: Pressure better controlled during admission with diuresis. Continue spironolactone 50 mg once daily Tobacco use disorder: Nicotine patch as needed, patient would like to continue to smoke. Please consider allowing him to smoke at the nursing facility. Evaluated by therapy, recommend skilled placement for rehab. Patient excepted [facility], stable for discharge Surrogate decision maker is the sister who is his POA Severe protein calorie malnutrition, continue protein supplementation with meals. Total time spent on discharge 32 minutes in counseling, documentation, chart review, and direct care with patient. Exam Data for Last 24 hours Vital signs and Labs for Last 24 Hours: Temp Pulse Resp BP Pulse Ox O2 Del Method O2 Flow Rate 97.6 F 74 17 122/53 L 91 L Room Air 2 08/07/24 08:00 08/07/24 09:30 08/07/24 08:00 08/07/24 08:00 08/07/24 09:30 08/07/24 09:30 08/04/24 16:00 Laboratory Results - last 24 hr 08/06/24 16:28: POC Glucose 224 H 08/06/24 20:25: POC Glucose 223 H 08/07/24 05:21: POC Glucose 212 H 08/07/24 09:25: WBC 10.3, RBC 3.41 L, Hgb 10.9 L, Hct 31.1 L, MCV 91.2, MCH 32.0 H, MCHC 35.0, RDW 15.1, Plt Count 88 L, MPV 9.7, Neut % (Auto) 93.9 H, Lymph % (Auto) 2.7 L, [place] % (Auto) 2.3, Eos % (Auto) 0.0 L, Baso % (Auto) 0.2, Neut # (Auto) 9.7 H, Lymph # (Auto) 0.3 L, [place] # (Auto) 0.2, Eos # (Auto) 0.0, Baso # (Auto) 0.0, Total Counted 100, Neutrophils % (Manual) 91 H, Band Neutrophils % 2.0, Lymphocytes % (Manual) 4 L, Monocytes % (Manual) 3, Platelet Estimate Moderate decrease, Anisocytosis 1+, Macrocytosis 1+, Sodium 139, Potassium 2.5 L*, Chloride 104, Carbon Dioxide 35 H, Anion Gap 2.5 L, BUN 18, Creatinine 0.60 L D, Estimated Creat Clear 107, Estimated GFR 135, Est GFR ( Amer) 164 D, Glucose 151 H, Calcium 6.3 L, Magnesium 1.7, Total Bilirubin 2.6 H, AST 105 H, ALT 170 H, Alkaline Phosphatase 290 H, Total Protein 4.3 L, Albumin 2.0 L D, Globulin 2.3, Albumin/Globulin Ratio 0.9 L 08/07/24 11:00: POC Glucose 210 H I & O for Last 24 hours: Intake & Output 04/29/08/05/24 08/06/24 08/07/24 23:59 23:59 23:59 23:59 Intake Total 1205 / 1205 1050 / 1050 2711 / 4061 1350 / 1350 Output Total 825 / 825 2200 / 3200 4900 / 5150 500 / 500 Balance 380 / 380 -1150 / -2150 -2189 / -1089 850 / 850 Weight 100.924 kg 102.376 kg 100.561 kg 103 kg Microbiology Reports for the Last 24 Hours: Microbiology 08/04/24 08:57 Blood Blood Culture - Preliminary Escherichia coli 08/04/24 08:55 Blood Blood Culture - Preliminary NO GROWTH AFTER 48 HOURS Constitutional Constitutional: mild distress, obese, chronically ill appearing and cooperative *Routine HEENT Exam Head: Present normocephalic Eye: Present EOMI and PERRL ENT: Present mucous membranes moist *Routine Neck Exam Neck: Present supple; Absent lymphadenopathy *Routine Respiratory Exam Respiratory: Present CTA bilaterally and wheezes (Minimal expiratory); Absent rhonchi or crackles *Routine Cardiovascular Exam Cardiovascular: Present RRR *Routine Abdominal Exam Abdominal: Present soft and normoactive bowel sounds; Absent tenderness or distended *Routine Rectal Exam Patient deferred: visual exam *Routine Exam Patient deferred: penile exam *Routine Extremities Exam Extremities: Absent cyanosis, clubbing or edema *Routine Skin Exam Skin: Present intact and warm; Absent rash *Routine Neurological Exam Neurological: Present alert, oriented X3 and moving all extremities; Absent altered mental status Results Data Completed and Pending Labs on day of discharge: Labs from last 24 hours 08/07/24 08/07/24 08/07/24 11:00 09:25 05:21 WBC 10.3 RBC 3.41 L Hgb 10.9 L Hct 31.1 L MCV 91.2 MCH 32.0 H MCHC 35.0 RDW 15.1 Plt Count 88 L MPV 9.7 Neut % (Auto) 93.9 H Lymph % (Auto) 2.7 L [place] % (Auto) 2.3 Eos % (Auto) 0.0 L Baso % (Auto) 0.2 Neut # (Auto) 9.7 H Lymph # (Auto) 0.3 L [place] # (Auto) 0.2 Eos # (Auto) 0.0 Baso # (Auto) 0.0 Total Counted 100 Neutrophils % (Manual) 91 H Band Neutrophils % 2.0 Lymphocytes % (Manual) 4 L Monocytes % (Manual) 3 Platelet Estimate Moderate decrease Anisocytosis 1+ Macrocytosis 1+ Sodium 139 Potassium 2.5 L* Chloride 104 Carbon Dioxide 35 H Anion Gap 2.5 L BUN 18 Creatinine 0.60 L D Estimated Creat Clear 107 Estimated GFR 135 Est GFR ( Amer) 164 D Glucose 151 H POC Glucose 210 H 212 H Calcium 6.3 L Magnesium 1.7 Total Bilirubin 2.6 H AST 105 H ALT 170 H Alkaline Phosphatase 290 H Total Protein 4.3 L Albumin 2.0 L D Globulin 2.3 Albumin/Globulin Ratio 0.9 L 08/06/24 08/06/24 20:25 16:28 WBC RBC Hgb Hct MCV MCH MCHC RDW Plt Count MPV Neut % (Auto) Lymph % (Auto) [place] % (Auto) Eos % (Auto) Baso % (Auto) Neut # (Auto) Lymph # (Auto) [place] # (Auto) Eos # (Auto) Baso # (Auto) Total Counted Neutrophils % (Manual) Band Neutrophils % Lymphocytes % (Manual) Monocytes % (Manual) Platelet Estimate Anisocytosis Macrocytosis Sodium Potassium Chloride Carbon Dioxide Anion Gap BUN Creatinine Estimated Creat Clear Estimated GFR Est GFR ( Amer) Glucose POC Glucose 223 H 224 H Calcium Magnesium Total Bilirubin AST ALT Alkaline Phosphatase Total Protein Albumin Globulin Albumin/Globulin Ratio Preliminary micro results at discharge 08/04/24 08:57 Blood Culture - Preliminary Blood Escherichia coli 08/04/24 08:55 Blood Culture - Preliminary Blood NO GROWTH AFTER 48 HOURS DS: Diagnosis Discharge Diagnosis (1) C. difficile colitis: Status: Acute Code(s): A04.72 - Enterocolitis due to Clostridium difficile, not specified as recurrent (2) Metastatic cancer: Status: Acute Code(s): C79.9 - Secondary malignant neoplasm of unspecified site (3) Rectal bleeding: Status: Acute Code(s): K62.5 - Hemorrhage of anus and rectum (4) Elevated liver enzymes: Status: Acute Code(s): R74.8 - Abnormal levels of other serum enzymes (5) Lung mass: Status: Acute Code(s): R91.8 - Other nonspecific abnormal finding of lung field (6) Diarrhea: Status: Acute Code(s): R19.7 - Diarrhea, unspecified (7) Lower extremity edema: Status: Acute Code(s): R60.0 - Localized edema (8) Fecal urgency: Status: Acute Code(s): R15.2 - Fecal urgency (9) Protein-losing enteropathy: Status: Acute Code(s): K90.49 - Malabsorption due to intolerance, not elsewhere classified (10) E coli bacteremia: Status: Acute Code(s): R78.81 - Bacteremia; B96.20 - Unspecified Escherichia coli [E. coli] as the cause of diseases classified elsewhere (11) Pneumonia: Status: Acute Code(s): J18.9 - Pneumonia, unspecified organism (12) Shock: Status: Acute Code(s): R57.9 - Shock, unspecified (13) Acute GI bleeding: Status: Acute Code(s): K92.2 - Gastrointestinal hemorrhage, unspecified (14) Unintentional weight loss: Status: Acute Code(s): R63.4 - Abnormal weight loss (15) Metastasis to liver: Status: Acute Code(s): C78.7 - Secondary malignant neoplasm of liver and intrahepatic bile duct (16) Mass of kidney: Status: Inactive Code(s): N28.89 - Other specified disorders of kidney and ureter (17) Smoking greater than 30 pack years: Status: Acute Code(s): F17.210 - Nicotine dependence, cigarettes, uncomplicated (18) Transaminitis: Status: Acute Code(s): R74.01 - Elevation of levels of liver transaminase levels (19) Cigarette smoker: Status: Acute Code(s): F17.210 - Nicotine dependence, cigarettes, uncomplicated Problem details: current, 2024, greater than 40 pack year history (20) Hypertension: Status: Acute Code(s): I10 - Essential (primary) hypertension (21) Diabetes mellitus: Status: Acute Code(s): E11.9 - Type 2 diabetes mellitus without complications (22) Severe protein-calorie malnutrition: Status: Acute Code(s): E43 - Unspecified severe protein-calorie malnutrition Meds Home Medications and Allergies Home Medications ?Medication ?Instructions ?Recorded ?Confirmed ?Type blood-glucose sensor (Dexcom G7 #3 ea 06/23/24 08/04/24 Rx Sensor device) blood-glucose,heel lift gouger,cont #1 ea 06/23/24 08/04/24 Rx (Dexcom G7 Seaweed Harvester) blood sugar diagnostic (Accu-Chek #100 ea 06/30/24 08/04/24 Rx Guide test strips) blood-glucose meter (Accu-Chek #1 ea 06/30/24 08/04/24 Rx Guide Glucose Meter) lancets (Accu-Chek Softclix #100 ea 06/30/24 08/04/24 Rx Lancets) pen needle, diabetic 31 gauge x #100 ea 07/11/24 08/04/24 Rx 3/16 (Pen Needle) spironolactone 50 mg tablet 50 mg PO DAILY #30 tabs 07/23/24 08/04/24 Rx albuterol sulfate 90 mcg/actuation 2 inh inhalation QIDP PRN 08/08/24 Rx aerosol inhaler shortness of breath or wheezing #8.5 grams colestipol 1 gram tablet (Colestid) 2 g (2 x 1 gram) PO HS 30 days #60 08/08/24 Rx tabs insulin glargine 100 unit/mL (3 15 unit (0.15 mL) SQ DAILY 30 days 08/08/24 Rx mL) subcutaneous pen (Lantus #4.5 mL Solostar U-100 Insulin) levofloxacin 750 mg tablet 750 mg PO DAILY #4 tabs 08/08/24 Rx potassium chloride 20 mEq 40 meq (2 x 20 mEq) PO TID 30 days 08/08/24 Rx tablet,extended #180 tabs release(part/cryst) (Klor-Con M) sodium di- and 1 tab PO Q6 30 days #120 tabs 08/08/24 Rx monophosphate-potassium phos monobasic 250 mg tablet (Phospha Neutral) New Prescriptions to Start Prescriptions: albuterol sulfate Ran English colestipol [Colestid] Ran English insulin glargine [Lantus Solostar U-100 Insulin] Ran English levofloxacin Ran English potassium chloride [Klor-Con M20] Ran English sod phos di, mono-K phos mono [Phospha 250 Neutral] Ran English Allergies Allergy/AdvReac Type Severity Reaction Status Date / Time No Known Allergies Allergy Verified 07/17/24 14:57 Discharge Plan Disposition Patient Disposition: [facility] Condition: Fair Discharge Order Discharge Orders: Discharge Order (Routine); Ordered 08/10/24 Ordered By: Ran English Follow up Plan Follow up with: Luz Cline APRN [Nurse Practitioner] - 09/10/24 9:00 am Mikel Lutz MD [Staff Physician] - 08/13/24 10:30 am So Carmichael MD [Physician] - 08/25/24 3:00 pm Prescriptions/Medication Reconciliation: New levofloxacin 750 mg tablet 750 mg PO DAILY Qty: 4 0RF potassium chloride [Klor-Con M20] 20 mEq Tablet,Er Particles/Crystals 40 meq PO TID 30 Days Qty: 180 0RF Continued (DME) blood-glucose meter [Accu-Chek Guide Glucose Meter] Misc See Rx Instructions .Route Qty: 1 0RF Rx Instructions: As directed, bid testing (DME) Accu-Chek Guide test strips Strip See Rx Instructions .Route Qty: 100 0RF Rx Instructions: As directed, bid testing (DME) lancets [Accu-Chek Softclix Lancets] Misc See Rx Instructions .Route Qty: 100 2RF Rx Instructions: As directed, bid testing (DME) Dexcom G7 Sensor Device See Rx Instructions .Route Qty: 3 11RF Rx Instructions: As directed (DME) Dexcom G7 Seaweed Harvester Misc See Rx Instructions .Route Qty: 1 0RF Rx Instructions: As directed spironolactone 50 mg tablet 50 mg PO DAILY Qty: 30 2RF Phospha 250 Neutral 250 mg Tablet 1 tab PO Q6 30 Days Qty: 120 0RF (DME) pen needle, diabetic [Pen Needle] 31 gauge x 3/16 needle See Rx Instructions .Route Qty: 100 0RF Rx Instructions: As directed Changed albuterol sulfate 90 mcg/actuation HFA aerosol inhaler 2 inh inhalation QIDP PRN (Reason: shortness of breath or wheezing) Qty: 8.5 0RF colestipol [Colestid] 1 gram tablet 2 g PO HS 30 Days Qty: 60 0RF insulin glargine [Lantus Solostar U-100 Insulin] 100 unit/mL (3 mL) Insulin Pen 15 unit SQ DAILY 30 Days Qty: 4.5 0RF Discontinued potassium chloride [Klor-Con M20] 20 mEq tablet,ER particles/crystals 40 meq PO TID 10 Days Qty: 60 0RF metformin 1,000 mg tablet 1,000 mg PO BID Patient Comments: TAKE 1 TABLET BY MOUTH TWICE DAILY nicotine (polacrilex) [Nicorette] 2 mg lozenge 2 mg buccal Q4HP PRN (Reason: nicotine cravings) calcium polycarbophil 625 mg Tablet 1,250 mg PO BID 30 Days Qty: 120 0RF Problem Reconciliation Problems Reviewed?: Yes Patient Discharge Instructions ACTIVITY: Continue current activity DIET: continue same diet Patient Instructions: Shock, Gastrointestinal Bleeding, DI for Hypotension, DI for Colitis, DI for Bacteremia-Adult, Stop Light Pneumonia Print Language: Syriac Providers Primary Care Provider: Galileo Vaz Admit Provider: Ran English Attending Provider: Ran English
[2024-08-09] MEDS: VANCOMYCIN HCL 50MG/ML 150ML KIT 125 MG PO ×4 (07:57→21:59)
[2024-08-09] MEDS: SPIRONOLACTONE 25MG TABLET 50 MG PO (07:57)
[2024-08-09] MEDS: BUMETANIDE 1MG/4ML VIAL 1 MG IV (07:58)
[2024-08-09] MEDS: POTASSIUM CHLORIDE 20MEQ TAB 40 MEQ PO ×3 (07:58→21:59)
[2024-08-09 08:00] VITALS: BP 121/64; PULSE 91; RESP 16; TEMP 36.6; O2SAT 94
[2024-08-09 08:52] LABS: Albumin Level 2.2 g/dl (3.5-5.0); Chloride 101 mmol/L (98-107); Sodium 136 mmol/L (136-145)
[2024-08-09 08:54] LABS: Alanine Aminotransferase 155 U/L (12-78); Anion Gap 0.5 mEq/L (5-15); Aspartate Amino Transferase 122 U/L (17-59); Blood Urea Nitrogen 17 mg/dl (9-20); Carbon Dioxide 37 mmol/L (22.0-30.0); Creatinine Clearance Estimated 99 mL/min (50-200); Estimated Glomerular Filt Rate 135 ml/min (>60); GFR (African American) 164 ML/MIN (>60)
[2024-08-09 08:55] LABS: Alkaline Phosphatase 399 U/L (38-126); Bilirubin,Total 2.4 mg/dl (0.2-1.3); Calcium 6.5 mg/dl (8.4-10.2); Globulin 2.1 g/dL (1.3-3.2); Glucose 176 mg/dl (74-100); Magnesium 1.8 mg/dl (1.6-2.3); Total Protein,Serum 4.3 g/dl (6.3-8.2)
[2024-08-09 08:57] LABS: Phosphorous 1.2 mg/dl (2.5-4.5); Potassium 2.5 mmoL/L (3.5-5.1)
[2024-08-09] MEDS: MAGNESIUM SULFATE IN WATER 2 GM/50 ML PIGGYBACK IV (09:22)
[2024-08-09] MEDS: POTASSIUM CHLORIDE 10 MEQ, LIDOCAINE HCL/PF 3 ML in 0.9 % SODIUM CHLORIDE 100 ML 108 MEQ IV ×8 (09:23→16:49)
[2024-08-09] MEDS: LEVOFLOXACIN/D5W 750 MG/150 ML 750 MG/150 ML PIGGYBACK 100 MG IV (10:19)
--- NOTE | 2024-08-09 10:26 | EXP.ACUTE.PN ---
Subjective *Date: 08/09/24 *Time: 13:23 Interval history: Patient feeling no better, but no worse today. Stable on room air. Afebrile. Continuing to have poor p.o. intake. Family at bedside. Given electrolyte disturbances, not appropriate to discharge today. No nausea or vomiting. Medical Exam Vital signs and Labs for Last 24 Hours: Vital Signs Temp Pulse Pulse Resp BP Pulse Ox O2 Del Method 08/09/24 09:57 Room Air 08/09/24 08:11 Room Air 08/09/24 08:00 97.9 F 91 H 16 121/64 94 L Room Air 08/09/24 08:00 Room Air 08/09/24 06:33 Room Air 08/09/24 05:00 Room Air 08/09/24 04:00 97.5 F L 87 16 117/56 L 94 L Room Air 08/09/24 03:00 Room Air 08/09/24 00:57 Room Air 08/09/24 00:00 90 08/09/24 00:00 98.0 F 95 H 16 115/72 95 Room Air 08/08/24 22:07 Room Air 08/08/24 21:00 Room Air 08/08/24 20:00 90 08/08/24 20:00 Room Air 08/08/24 20:00 97.6 F 95 H 16 116/75 95 Room Air 08/08/24 18:14 Room Air 08/08/24 16:08 Room Air 08/08/24 16:00 90 08/08/24 16:00 97.6 F 88 20 102/54 L 96 Room Air 08/08/24 14:07 Room Air 08/08/24 12:58 Room Air 08/08/24 12:00 97.5 F L 86 18 104/53 L 93 L Room Air Intake and Output 08/08/24 08/09/24 08/09/24 23:59 07:59 15:59 Intake Total 250 / 1630 120 / 1240 1120 / 1240 Output Total 300 / 2800 550 / 650 100 / 650 Balance -50 / -1170 -430 / 590 1020 / 590 Intake: Intake, Oral Amount 250 / 980 120 / 240 120 / 240 Intake, Total IV Amount 1000 / 1000 Levofloxacin/D5w 750 mg/150 ml 150 / 150 750 mg In 150 ml @ 100 mls/hr IV 1100 [facility]SEPH Rx#:[id number] Magnesium Sulfate in Water 2 gm 50 / 50 In 50 ml @ 50 mls/hr IV ONCE ONE Rx#:[id number] Potassium Chloride 10 meq 800 / 800 Lidocaine HCl/Pf 3 ml In 0.9 % Sodium Chloride 100 ml @ 108 mls/hr IV Q1H [facility] Rx#:[id number] Output: Output, Urine Amount 300 / 2800 550 / 650 100 / 650 Other: Number of Unmeasured Voids 0 0 Number of Bowel Movements 2 Weight 94.605 kg Patient Weight 08/09/24 23:59 Weight 94.605 kg Laboratory Results - last 24 hr 08/08/24 15:44: POC Glucose 274 H 08/08/24 19:42: POC Glucose 232 H 08/09/24 05:36: POC Glucose 220 H 08/09/24 07:55: Sodium 136, Potassium 2.5 L*, Chloride 101, Carbon Dioxide 37 H, Anion Gap 0.5 L, BUN 17, Creatinine 0.60 L, Estimated Creat Clear 99, Estimated GFR 135, Est GFR ( Amer) 164, Glucose 176 H, Calcium 6.5 L, Phosphorus 1.2 L, Magnesium 1.8, Total Bilirubin 2.4 H, AST 122 H, ALT 155 H, Alkaline Phosphatase 399 H, Total Protein 4.3 L, Albumin 2.2 L, Globulin 2.1, Albumin/Globulin Ratio 1.0 L I & O for Labs for Last 24 Hours: Intake & Output 08/06/24 08/07/24 08/08/24 08/09/24 23:59 23:59 23:59 23:59 Intake Total 2711 / 4061 1997 1510 / 1630 1240 / 1240 Output Total 4900 / 5150 2100 / 2200 2800 / 2800 650 / 650 Balance -2189 / -1089 -102 / -82 -1290 / -1170 590 / 590 Weight 100.561 kg 103 kg 94.665 kg 94.605 kg Microbiology Reports for the Last 24 Hours: Microbiology 08/04/24 08:55 Blood Blood Culture - Final NO GROWTH AFTER 5 DAYS Constitutional: Present no acute distress, chronically ill appearing and cooperative Head: Present atraumatic and normocephalic ENT: Present normal exam Respiratory: Present normal respiratory effort; Absent rhonchi, wheezes or crackles Cardiac: Present Reg Rate and Rhythm GI: Present soft, tenderness (Nonfocal) and normal bowel sounds; Absent distention Extremities: Present normal inspection, full ROM and edema (3+ to knees, 2+ in all) Skin: Present intact and pallor; Absent erythema Neuro: Present Grossly Intact, alert, awake, oriented x 3 and moves all extremities Assessment and Plan *Assessment and plan (1) C. difficile colitis: Status: Acute Category: Medical Code(s): A04.72 - Enterocolitis due to Clostridium difficile, not specified as recurrent (2) Metastatic cancer: Status: Acute Category: Medical Code(s): C79.9 - Secondary malignant neoplasm of unspecified site (3) Rectal bleeding: Status: Acute Category: Medical Code(s): K62.5 - Hemorrhage of anus and rectum (4) Elevated liver enzymes: Status: Acute Category: Medical Code(s): R74.8 - Abnormal levels of other serum enzymes (5) Lung mass: Status: Acute Category: Medical Code(s): R91.8 - Other nonspecific abnormal finding of lung field (6) Diarrhea: Status: Acute Category: Medical Code(s): R19.7 - Diarrhea, unspecified (7) Lower extremity edema: Status: Acute Category: Medical Code(s): R60.0 - Localized edema (8) Fecal urgency: Status: Acute Category: Medical Code(s): R15.2 - Fecal urgency (9) Protein-losing enteropathy: Status: Acute Category: Medical Code(s): K90.49 - Malabsorption due to intolerance, not elsewhere classified (10) E coli bacteremia: Status: Acute Category: Medical Code(s): R78.81 - Bacteremia; B96.20 - Unspecified Escherichia coli [E. coli] as the cause of diseases classified elsewhere (11) Pneumonia: Status: Acute Category: Medical Code(s): J18.9 - Pneumonia, unspecified organism (12) Shock: Status: Acute Category: Medical Code(s): R57.9 - Shock, unspecified (13) Acute GI bleeding: Status: Acute Category: Medical Code(s): K92.2 - Gastrointestinal hemorrhage, unspecified (14) Unintentional weight loss: Status: Acute Category: Medical Code(s): R63.4 - Abnormal weight loss (15) Metastasis to liver: Status: Acute Category: Medical Code(s): C78.7 - Secondary malignant neoplasm of liver and intrahepatic bile duct (16) Mass of kidney: Status: Inactive Category: Medical Code(s): N28.89 - Other specified disorders of kidney and ureter (17) Smoking greater than 30 pack years: Status: Acute Category: Social Hx Code(s): F17.210 - Nicotine dependence, cigarettes, uncomplicated (18) Transaminitis: Status: Acute Category: Medical Code(s): R74.01 - Elevation of levels of liver transaminase levels (19) Cigarette smoker: Problem Comment: current, 2024, greater than 40 pack year history Status: Acute Category: Social Hx Code(s): F17.210 - Nicotine dependence, cigarettes, uncomplicated (20) Hypertension: Status: Acute Category: Medical Code(s): I10 - Essential (primary) hypertension (21) Diabetes mellitus: Status: Acute Category: Medical Code(s): E11.9 - Type 2 diabetes mellitus without complications (22) Severe protein-calorie malnutrition: Status: Acute Category: Medical Code(s): E43 - Unspecified severe protein-calorie malnutrition Plan 64-year-old male with recent diagnosis of metastatic cancer of unknown primary, presents to the ED with GI bleed/bright red blood per rectum. Discussed case with ER physician, request admission for further management of his shock state and suspected GI bleed. I agreed to admit for further care. GI consulted, appreciate their assistance. Continuing to replace electrolytes, continue to encourage p.o. intake. Awaiting improvement in electrolytes to discharge to rehab. Working with rehab. Problems addressed as follows: C. difficile colitis E. coli bacteremia Acute blood loss anemia Diarrhea - Bloody stools resolved. Transfusion threshold hemoglobin less than 7 - Continue vancomycin 125 mg 4 times a day p.o. for total of 10 days, last dose 08/14/2024 - Blood culture positive for Enterobacter/E. coli on PCR. Continue Levaquin 750 mg IV daily to complete 10 days of therapy. Will transition to oral at discharge. 08/13/2024 - Phosphorus, CBC, CMP, magnesium ordered for the morning. Hypokalemia Hypophosphatemia -Potassium 2.5, magnesium 1.8, phosphorus 1.2, calcium 6.5. Aggressive replacement of potassium with 40 mEq 3 times a day along with 2 rounds 15 mEq K-Phos IV, 2 g magnesium, and 2 g calcium gluconate. Repeat magnesium, phosphorus, BMP ordered for this evening, repeat CBC, CMP, magnesium ordered for the more Metastatic cancer of unknown primary, suspected lung versus colon - Patient taken for IR guided biopsy of liver lesion 08/05/24. Pathology pending. Further management pending results. -CEA elevated at 746, CA 19-9 elevated at 1389, these have both increased in the past month -Will need follow-up with oncology, referred to Dr. Lutz for further assistance Diabetes: Morning glucose 176, A1c elevated 8.4 earlier this month, continue sliding scale insulin and fingersticks ACHS. Holding oral diabetes medications in the setting of shock/diarrhea Hypertension: Discontinue Bumex. Blood pressure stable at 120/72. Tobacco use disorder: Nicotine patch as needed Evaluated by therapy, recommend skilled placement for rehab. Patient excepted [facility], anticipate discharge tomorrow to their care. Full code Diabetic diet Sister is surrogate decision-maker/POA
[2024-08-09 10:32] LABS: POC Glucose,Bedside 167 (70-110)
[2024-08-09] MEDS: CALCIUM GLUC IN NACL, ISO-OSM 2 GM/100 ML BAG IV (10:50)
[2024-08-09 12:00] VITALS: BP 120/72; PULSE 87; PULSE 90; RESP 16; TEMP 36.4; O2SAT 95
[2024-08-09] MEDS: POTASSIUM PHOS IN 0.9 % NACL 15 MMOL/250 ML PIGGYBACK 62.5 MMOL IV ×2 (12:22→16:20)
--- NOTE | 2024-08-09 14:25 | PC.NURSE ---
Several runs of potassium, one of magnesium, and potassium phosphate, pt to d/c tomorrow to [facility].
[2024-08-09 15:36] LABS: POC Glucose,Bedside 171 (70-110)
[2024-08-09 16:00] VITALS: BP 126/72; PULSE 68; PULSE 90; RESP 16; TEMP 36.4; O2SAT 95
[2024-08-09 19:10] LABS: Albumin Level 2.3 g/dl (3.5-5.0); Chloride 105 mmol/L (98-107); Potassium 4.1 mmoL/L (3.5-5.1); Sodium 135 mmol/L (136-145)
[2024-08-09 19:12] LABS: Alanine Aminotransferase 135 U/L (12-78); Aspartate Amino Transferase 131 U/L (17-59); Blood Urea Nitrogen 17 mg/dl (9-20); Creatinine Clearance Estimated 99 mL/min (50-200); Estimated Glomerular Filt Rate 135 ml/min (>60); GFR (African American) 164 ML/MIN (>60)
[2024-08-09 19:13] LABS: Alkaline Phosphatase 365 U/L (38-126); Anion Gap 3.1 mEq/L (5-15); Bilirubin,Total 2.5 mg/dl (0.2-1.3); Calcium 6.3 mg/dl (8.4-10.2); Carbon Dioxide 31 mmol/L (22.0-30.0); Globulin 2.3 g/dL (1.3-3.2); Glucose 172 mg/dl (74-100); Magnesium 1.9 mg/dl (1.6-2.3); Total Protein,Serum 4.6 g/dl (6.3-8.2)
[2024-08-09 19:15] LABS: Phosphorous 1.9 mg/dl (2.5-4.5)
[2024-08-09 20:00] VITALS: BP 115/63; PULSE 80; PULSE 89; RESP 16; TEMP 36.4; O2SAT 95
[2024-08-09 21:08] LABS: POC Glucose,Bedside 210 (70-110)
[2024-08-09] MEDS: TRAZODONE 50MG TABLET 50 MG PO (21:59)
[2024-08-09] MEDS: INSULIN GLARGINE 100 UNITS/ML 3ML FLEXPEN 15 UNIT SUBCUT (22:00)
[2024-08-10] VITALS: BP 115/73; PULSE 70; PULSE 77; RESP 16; TEMP 36.5; O2SAT 97
[2024-08-10 03:55] VITALS: BP 120/69; PULSE 90; RESP 16; TEMP 36.4; O2SAT 95; BMI 27.1
[2024-08-10 04:00] VITALS: PULSE 80
--- NOTE | 2024-08-10 06:12 | PC.NURSE ---
Pt pending possible placement today. Wound care to glutes from c-diff break down. C-diff precautions maintained. v/s, ox4. Blood glucose monitored. Provider notified of critical lab. Electrolyte replacement monitored. Q2 turns due to skin break down from c-diff. Plan of care ongoing.
[2024-08-10] MEDS: humaLOG 100 UNITS/ML 10ML VIAL (SSI) SUBCUT (06:43)
[2024-08-10 08:00] VITALS: BP 113/67; PULSE 80; RESP 18; TEMP 36.4; O2SAT 92
[2024-08-10] MEDS: POTASSIUM CHLORIDE 20MEQ TAB 40 MEQ PO ×2 (08:00→12:05)
[2024-08-10] MEDS: VANCOMYCIN HCL 50MG/ML 150ML KIT 125 MG PO ×2 (08:00→12:05)
[2024-08-10] MEDS: SPIRONOLACTONE 25MG TABLET 50 MG PO (08:00)
[2024-08-10 08:35] LABS: Basophils % 0.2 % (0.1-2.0); Hematocrit 29.4 % (42.0-52.0); Lymphocytes # 0.3 K/mm3 (0.7-4.5); Lymphocytes % 3.6 % (10-50); Mean Corpuscular Hemoglobin 32.2 pg (27.0-31.2); Mean Corpuscular Volume 94.5 fl (80-94); Mean Platelet Volume 10.8 fl (7.4-10.4); Monocytes # 0.3 K/mm3 (0.1-1.0); Monocytes % 3.2 % (1.7-9.3); Neutrophils # 8.8 K/mm3 (1.8-7.8); Neutrophils % 91.4 % (37.0-80.0); Nucleated Red Blood Cells # 0 10^3/uL; Nucleated Red Blood Cells % 0 %; Platelet Count 85 K/mm3 (142-424); Red Blood Count 3.11 M/mm3 (4.60-6.20); Red Cell Distribution Width 16.2 % (11.5-17.5); Red Cell Distribution Width-SD 54.6 fL; White Blood Count 9.6 K/mm3 (4.8-10.8)
[2024-08-10 08:36] LABS: MANUAL DIFFERENTIAL MANUAL DIFFERENTIAL (MANUAL DIFF)
[2024-08-10 08:50] LABS: Albumin Level 2.2 g/dl (3.5-5.0); Chloride 109 mmol/L (98-107); Potassium 4.2 mmoL/L (3.5-5.1); Sodium 140 mmol/L (136-145)
[2024-08-10 08:52] LABS: Blood Urea Nitrogen 19 mg/dl (9-20); Creatinine Clearance Estimated 100 mL/min (50-200); Estimated Glomerular Filt Rate 135 ml/min (>60); GFR (African American) 164 ML/MIN (>60)
[2024-08-10 08:53] LABS: Alanine Aminotransferase 132 U/L (12-78); Albumin/Globulin Ratio 0.9 (1.1-1.8); Alkaline Phosphatase 389 U/L (38-126); Anion Gap 6.2 mEq/L (5-15); Aspartate Amino Transferase 121 U/L (17-59); Bilirubin,Total 2.5 mg/dl (0.2-1.3); Calcium 6.5 mg/dl (8.4-10.2); Carbon Dioxide 29 mmol/L (22.0-30.0); Globulin 2.4 g/dL (1.3-3.2); Glucose 168 mg/dl (74-100); Total Protein,Serum 4.6 g/dl (6.3-8.2)
[2024-08-10 08:54] LABS: Magnesium 1.8 mg/dl (1.6-2.3)
[2024-08-10 08:57] LABS: Phosphorous 1.4 mg/dl (2.5-4.5)
[2024-08-10 09:42] LABS: Lymphocytes % 2 % (10-50); Monocytes % 3 % (2-9); Neutrophils % 95 % (42-76); Platelet Estimate Normal; RBC Morphology Normal
[2024-08-10 09:43] LABS: Total Cells Counted 100
[2024-08-10] MEDS: POTASSIUM PHOS IN 0.9 % NACL 15 MMOL/250 ML PIGGYBACK 62.5 MMOL IV (10:00)
[2024-08-10 12:00] VITALS: PULSE 80
[2024-08-10] MEDS: levoFLOXacin 750 MG TABLET PO (12:05)
--- NOTE | 2024-08-10 13:56 | PC.NURSE ---
report called to [facility]
[2024-08-10 17:35] LABS: POC Glucose,Bedside 181 (70-110)
[2024-08-11 05:34] LABS: POC Glucose,Bedside 226 (70-110)
== END 2024-08-10 15:05 | DRG 371 ==
LOC: ER 09:45 → 2ND 09:52
PROVIDERS: Admitting Provider Internal Medicine Adolescent Medicine; Emergency Provider Emergency Medicine; PCP Family Medicine; Visit Provider Internal Medicine Adolescent Medicine
DX: A04.72 Enterocolitis due to Clostridium difficile, not specified as recurrent (principal); R57.1 Hypovolemic shock; K62.5 Hemorrhage of anus and rectum; Z16.29 Resistance to other single specified antibiotic; R78.81 Bacteremia; N17.9 Acute kidney failure, unspecified; D62 Acute posthemorrhagic anemia; C78.7 Secondary malignant neoplasm of liver and intrahepatic bile duct; K90.49 Malabsorption due to intolerance, not elsewhere classified; R63.4 Abnormal weight loss; B96.20 Unspecified Escherichia coli [E. coli] as the cause of diseases classified elsewhere; E87.6 Hypokalemia; E83.39 Other disorders of phosphorus metabolism; I10 Essential (primary) hypertension; F17.210 Nicotine dependence, cigarettes, uncomplicated; E66.9 Obesity, unspecified; Z68.27 Body mass index [BMI] 27.0-27.9, adult; R74.01 Elevation of levels of liver transaminase levels; E11.9 Type 2 diabetes mellitus without complications; R06.82 Tachypnea, not elsewhere classified; E83.51 Hypocalcemia; R15.2 Fecal urgency; N28.89 Other specified disorders of kidney and ureter; R16.0 Hepatomegaly, not elsewhere classified; R53.1 Weakness; K64.2 Third degree hemorrhoids; R91.8 Other nonspecific abnormal finding of lung field; Z80.0 Family history of malignant neoplasm of digestive organs; Z80.1 Family history of malignant neoplasm of trachea, bronchus and lung; Z90.49 Acquired absence of other specified parts of digestive tract; Z79.4 Long term (current) use of insulin; Z79.84 Long term (current) use of oral hypoglycemic drugs; Z79.899 Other long term (current) drug therapy; C80.1 Malignant (primary) neoplasm, unspecified
CPT/HCPCS: 36410; 36415; 47000; 71045; 74174; 77012; 80053; 80202; 82803; 82962; 83605; 83690; 83735; 84100; 84132; 84145; 84484; 85007; 85014; 85018; 85025; 85610; 85730; 86140; 86803; 86850; 87040; 87070; 87077; 87081; 87186; 87205; 87389; 87507; 88184; 88185; 88307; 88341; 88342; 88360; 93005; 97110; 97163; 97166; 97530; 99291; J0612; J0696; J1939; J1956; J2003; J2250; J2354; J2470; J2543; J3010; J3372; J3475; J3480; J7050; J7120; P9016; Q9967